=== PATIENT | male | born 1950 | race Caucasian/White ===

== ENCOUNTER 2019-05-27 14:34 | Inpatient (IN) | payer MEDICARE, SELFPAY ==
--- NOTE | ~2019-05-27 | US_ITS ---
EXAMINATION: US abdomen limited DATE: 05/27/2019 15:30 INDICATION: Right upper quadrant abdominal pain. TECHNIQUE: Multiple grayscale and Doppler ultrasound images of the abdomen were obtained. COMPARISON: CT abdomen and pelvis 12/14/2018 FINDINGS: The visualized portions of the head and body of the pancreas are normal. The liver is marie l without focal lesion. There is normal flow in main portal vein. The gallbladder is normal in size a nd contains a 4 mm polyp, likely not clinically significant. No gallstones or gallbladder wall thicke tali. There was no sonographic Calix sign. The common duct is normal and measures 6 mm. IMPRESSION: 1. No cholelithiasis. Reviewed, dictated and finalized at location A. IMPRESSION: 1. No cholelithiasis.
--- NOTE | ~2019-05-27 | CT_ITS ---
EXAMINATION: CT abdomen pelvis w con DATE: 05/27/2019 16:17 INDICATION: Pancreatitis. Abdominal pain. TECHNIQUE: Computed tomography (CT) of the abdomen and pelvis was performed with 100 mL Omnipaque 350 intravenous contrast. Automated exposure control and iterative reconstruction technique were employe d. The dose-length product was 657.96 mGy-cm. COMPARISON: CT abdomen and pelvis 12/14/2018 FINDINGS: The visualized portions of the lung bases demonstrate mild atelectasis. Calcified left lung nodules are consistent with old granulomatous disease. Again seen is an 8 mm nodule in lingula. No p leural effusion. The heart size is normal. No pericardial effusion. The liver and gallbladder are nor mal. Calcifications in the spleen are consistent with old granulomatous disease. There is fluid and f at stranding around the head and body of the pancreas, consistent with acute interstitial pancreatiti s. The adrenal glands and right kidney are normal. There is a 1.9 cm cyst in left kidney. The prostat e is moderately enlarged. There are no dilated loops of bowel. The appendix is normal. There are no p athologically enlarged lymph nodes. There is no free intraperitoneal fluid. There is mild thoracolumb ar spondylosis. IMPRESSION: 1. Acute interstitial pancreatitis. 2. Stable 8 mm pulmonary nodule, probably benign. Noncontrast chest CT is recommended in 6-12 months. Reviewed, dictated and finalized at location A. IMPRESSION: 1. Acute interstitial pancreatitis. 2. Stable 8 mm pulmonary nodule, probably benign. Noncontrast chest CT is recom mended in 6-12 months.
[2019-05-27 14:38] VITALS: BP 130/79; PULSE 86; RESP 16; TEMP 36.3; O2SAT 99
[2019-05-27 14:45] VITALS: BP 130/79; PULSE 86; RESP 16; TEMP 36.3; O2SAT 99
--- NOTE | 2019-05-27 14:46 | ED.ABDPAIN ---
HPI - Abdominal Pain General Chief Complaint: Abdominal Pain Stated Complaint: GALLBLADDER ATTACK Time Seen by Provider: 05/27/19 14:46 Source: patient Mode of arrival: ambulatory Limitations: no limitations History of Present Illness HPI narrative: A 69 y/o male presents to the ED with c/o intermittent nonradiating epigastric ABD pain that began 1.5 hours ago. 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 Pt is concerned that he is having a gall bladder attack. Pt notes that he was seen here in November 2018 for the same complaints and was told that he had a flare up of his pancreas and gallbladder. Pt's lipase level was high at the time. Pt had an endoscopy done by Dr. Diggs that came back normal. Pt was told that his pain may be due to sludge. Pt notes that he had a normal BM today. He denies a fever, N/V, CP, a cough, diarrhea, constipation, leg pain, a rash, alcohol use, and being on a blood thinner. Onset (ago): hour(s) (1.5) Pain Consistency: intermittent Location: epigastric Related Data Home Medications Medication Instructions Recorded Confirmed No Home Medications 05/27/19 05/27/19 Allergies Allergy/AdvReac Type Severity Reaction Status Date / Time No Known Allergies Allergy Verified 05/27/19 14:52 Review of Systems Review of Systems: Narrative: CONSTITUTIONAL: Denies fever, chills, or sweats. CARDIOVASCULAR: Denies chest pain, palpitations, or edema. RESPIRATORY: Denies cough or dyspnea. GASTROINTESTINAL: Reports: intermittent nonradiating epigastric ABD pain; Denies constipation, nausea, vomiting, or diarrhea. SKIN: Denies rash or itching. MUSCULOSKELETAL: Denies leg pain, back pain, joint pain, or myalgia. All systems reviewed & are unremarkable except as noted in HPI and below PMFSH Past Medical History Medical History (Updated 05/27/19 @ 16:01 by Rosana Quinones MD) Amputation finger left first digit Left wrist fracture Normal endoscopy SBO (small bowel obstruction) Toe fracture, left big toe Surgical History Surgical History H/O skin graft left leg to index finger Social History Social History (Updated 05/27/19 @ 15:01 by Aure M. Pashea) Smoking status: Former smoker Comments PCP: Dr. Gutierres Exam Narrative: Exam Narrative: GENERAL: Awake, alert, conversant HEAD: Normocephalic, atraumatic. NECK: Full range of motion CHEST: No respiratory distress, speaking in full sentences, no tachypnea HEART: Regular rate ABDOMEN: Mild distention, epigastric tenderness, right upper quadrant tenderness, nonrigid, no guarding EXTREMITIES: Normal range of motion. No edema. SKIN: Warm, dry, no rash. NEURO: No focal deficits. Alert and oriented x3. Course Course Emergency Course: Patient presented to the emergency department for evaluation of abdominal pain. Patient has a history of pancreatitis, today symptoms again are consistent with pancreatitis. Had acute onset of sudden epigastric pain approximately 2 hours prior to arrival. Laboratory results notable for significantly elevated lipase. CT scan confirms pancreatitis without evidence of hemorrhage or necrosis, no pseudocyst. Patient in the past has been followed by GI at this facility. We will admit patient to hospitalist service, and will keep him n.p.o. on IV fluids and pain medication. Patient was updated, understanding of the plan. Consultations Consultation #1: Discussed case with CHELA Franco and accepted admission. Date: 05/27/19 Time: 16:38 Vital Signs Vital signs: Vital Signs Temperature 36.3 C L 05/27/19 14:38 Pulse Rate 86 05/27/19 14:38 Respiratory Rate 16 05/27/19 14:38 Blood Pressure 130/79 05/27/19 14:38 Pulse Oximetry 99 05/27/19 14:38 Temperature 36.3 C L 05/27/19 14:45 Pulse Rate 63 05/27/19 16:32 Respiratory Rate 16 05/27/19 16:32 Blood Pressure 117/66 05/27/19 16:32 Pulse Oximetry 99 05/27/19 16:32
[2019-05-27 14:52] LABS: Basophils Percent Auto 0.4 % (0.2-1.2); Eosinophils Absolute Auto 0.1 K/mm3 (0-0.3); Eosinophils Percent Auto 0.7 % (0-4.4); Hematocrit 39.8 % (42.0-52.0); Hemoglobin 13.7 g/dL (14.0-18.0); Immature Granulocyte Absolute 0.03 K/mm3 (0.00-0.031); Immature Granulocyte Percent A 0.4 % (0-0.5); Lymphocytes Absolute Auto 0.98 K/mm3 (0.9-3.2); Mean Corpuscular HGB Conc 34.4 g/dl (32-36); Mean Corpuscular Hemoglobin 31.1 pg (26-34); Mean Corpuscular Volume 90.5 fl (80-100); Mean Platelet Volume 9.9 fl (7.4-10.4); Monocytes Absolute Auto 0.5 K/mm3 (0.1-0.6); Monocytes Percent Auto 5.5 % (2.6-8.5); Neutrophils Absolute Auto 6.6 K/mm3 (1.3-6.7); Platelet Count Result 209 k/mm3 (150-375); Red Cell Distribution Width 12.9 % (11.5-14.5); White Blood Count 8.1 K/mm3 (4.5-10.0)
[2019-05-27] MEDS: MORPHINE SULFATE 4 MG/ML INJ IV PUSH ×2 (15:01→20:49)
[2019-05-27] MEDS: ONDANSETRON INJ 4 MG/2 ML VIAL IV PUSH (15:01)
--- NOTE | 2019-05-27 15:06 | PC.NURSE ---
Patient to ultrasound, fluids to be provided when he returns.
[2019-05-27 15:07] LABS: Alanine Aminotransferase 16 U/L (4-50); Albumin Level 4.5 g/dL (3.5-5.1); Alkaline Phosphatase 52 U/L (38-126); Aspartate Amino Transferase 26 U/L (17-59); Bilirubin,Total 2.1 mg/dL (0.2-1.3); Blood Urea Nitrogen 20 mg/dL (9-20); Calcium 9.4 mg/dL (8.4-10.2); Carbon Dioxide 25 mmol/L (22-30); Chloride 106 mmol/L (98-107); Estimated CRCL calculation 61 ml/min; Estimated Glomerular Filt Rate > 60; Glucose 147 mg/dL (75-110); Potassium 4.1 mmol/L (3.4-5.0); Sodium 138 mmol/L (137-145)
[2019-05-27 15:24] LABS: Add Urine Microscopic? YES; Appearance Urine Clear (Clear); Bilirubin Urine Negative (Negative); Blood Urine Negative (Negative); Color Urine Yellow (Yellow); Glucose Urine UA Negative (Negative); Hyaline Casts Urine 20-29 /lpf; Ketones Urine Trace mg/dL (Negative); Leukocyte Esterase Ur Trace LEU/UL (Negative); Mucus Urine Few /lpf; Nitrate Urine Negative (Negative); Protein Urine Negative (Negative); Specific Grav Ur 1.019 (1.001-1.035); Squamous Epithelial Cell Urine Rare /hpf (Few)
[2019-05-27 15:52] LABS: Lipase 14626 U/L (23-300)
[2019-05-27] MEDS: SODIUM CHLORIDE 0.9% IV 1,000 ML 999 ML IV CONT (16:28)
[2019-05-27 16:32] VITALS: BP 117/66; PULSE 63; RESP 16; O2SAT 99
[2019-05-27] MEDS: LACTATED RINGERS 1,000 ML 125 ML IV CONT (17:56)
[2019-05-27 18:01] VITALS: BP 140/78; PULSE 53; RESP 16; TEMP 37.1; O2SAT 100
--- NOTE | 2019-05-27 18:24 | PC.NURSE ---
This patient, Jeramy Blood, was admitted to Medical Room 252-01. Patient/family oriented to hospital policies and general routines including ID bracelet, bed and alarms, visiting hours, pain management, procedures, bathroom and other care routines, personal items, smoking policy, room service/diet, and visiting hours. Valuables list has been completed. Information on how to activate the Rapid Response Team has been discussed. Patient/Family are encouraged to report perceived risks to care and to ask questions if they do not understand what they are told or what they should do.
[2019-05-27 18:26] VITALS: BMI 27.1
[2019-05-27 18:42] VITALS: BP 145/94; PULSE 64; RESP 18; TEMP 36.3; O2SAT 95
[2019-05-27 22:00] VITALS: BP 108/87; PULSE 55; RESP 18; TEMP 36.5; O2SAT 98
--- NOTE | 2019-05-27 23:19 | PM.IMHP ---
H&P: HPI History of Present Illness Chief complaint: Pancreatitis Narrative: Jeramy Blood is a 69 year old male who has a history of having chronic pancreatitis. The patient's last admission was November of 2018. The patient does he had GI specialist Dr. Snow. Dr. Snow sent the patient to another specialist who did an EGD getting to the patient and found nothing wrong. He had some sludge but was not going for surgery as of yet. Aseptic the patient had been initially admitted to [facility] before he was admitted to here. It was reported that his MRCP was unremarkable. Denies any alcohol abuse. No family history of any pancreatitis. 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 He stated that the morphine does help. He said that he has been eating more bland diet and he has been eating a low-fat diet. The patient's lipase was noted to be 14,626. His PSA is 4.4. I am not sure if he follows with the urologist. The patient did have morphine and that seemed to relieve his discomfort. The CT did confirm pancreatitis. He was started on IV fluids and pain medication. Review of Systems Review of Systems: Narrative: Severe left epigastric discomfort. No nausea vomiting or diarrhea that started today. It started all of a sudden. He did not try anything to relieve the discomfort. All systems reviewed & are unremarkable except as noted in HPI and below Constitutional: Constitutional: Reports as per HPI and Reports no additional constitutional complaints Eyes: Eyes: Reports as per HPI and Reports no additional eye complaints ENT: Reports system reviewed and no additional complaints, except as documented and Reports Normal hearing present Cardiovascular: Cardiovascular: Reports no additional cardiovascular complaints Respiratory: Respiratory: Reports no additional respiratory complaints and Reports no additional respiratory complaints Gastrointestinal: Gastrointestinal: Reports as per HPI and Reports no additional gastrointestinal complaints Musculoskeletal: Musculoskeletal: Reports no additional musculoskeletal complaints Integumentary/Breasts: Skin/Breast: Reports system reviewed and no additional complaints, except as docu and Reports as per HPI Neurologic: Reports system reviewed and no additional complaints, except as documented, Reports as per HPI and Reports Normal hearing present Psychiatric: Psychiatric: Reports no additional psychiatric complaints and Reports as per HPI Endocrine: Endocrine: Reports no additional endocrine complaints Hematologic/Lymphatic: Hematologic/Lymphatic: Reports no additional hematologic/lymphatic complaints Allergic/Immunologic: Allergic/Immunologic: Reports no additional allergic/immunologic complaints PMFSH Past Medical History Medical History (Updated 05/27/19 @ 23:28 by Joan Stephenson NP) Amputation finger left first digit Gallbladder sludge Left wrist fracture Normal endoscopy SBO (small bowel obstruction) Toe fracture, left big toe Surgical History Surgical History H/O skin graft left leg to index finger Family History Family History (Updated 05/27/19 @ 23:26 by Joan Stephenson NP) Father Malignant neoplasm of prostate Mother Lung cancer Stomach cancer Sibling History of female genital cancer Social History Social History (Updated 05/27/19 @ 23:27 by Joan Stephenson NP) Social History: The patient is and lives with his . 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 Patient desires to be a full code. He smoked 3 packs of cigarettes a day for 3 years and quit 1977. He drinks 2 oz of wine about 2 times a week. No drug use. Smoking st
[2019-05-28] MEDS: LACTATED RINGERS 1,000 ML 125 ML IV CONT (01:44)
[2019-05-28 05:41] LABS: Basophils Percent Auto 0.5 % (0.2-1.2); Eosinophils Absolute Auto 0.2 K/mm3 (0-0.3); Eosinophils Percent Auto 2.4 % (0-4.4); Hematocrit 36.1 % (42.0-52.0); Hemoglobin 12.4 g/dL (14.0-18.0); Immature Granulocyte Absolute 0.01 K/mm3 (0.00-0.031); Immature Granulocyte Percent A 0.2 % (0-0.5); Lymphocytes Absolute Auto 1.33 K/mm3 (0.9-3.2); Lymphocytes Percent Auto 20.9 % (18.3-44.2); Mean Corpuscular HGB Conc 34.3 g/dl (32-36); Mean Corpuscular Hemoglobin 31.2 pg (26-34); Mean Corpuscular Volume 90.7 fl (80-100); Mean Platelet Volume 9.7 fl (7.4-10.4); Monocytes Absolute Auto 0.4 K/mm3 (0.1-0.6); Monocytes Percent Auto 6.8 % (2.6-8.5); Neutrophils Absolute Auto 4.4 K/mm3 (1.3-6.7); Neutrophils Percent Auto 69.2 % (45.5-73.1); Platelet Count Result 173 k/mm3 (150-375); Red Blood Count 3.98 M/mm3 (4.6-6.20); Red Cell Distribution Width 13.1 % (11.5-14.5); White Blood Count 6.4 K/mm3 (4.5-10.0)
[2019-05-28 05:53] LABS: Alanine Aminotransferase 15 U/L (4-50); Albumin Level 3.6 g/dL (3.5-5.1); Alkaline Phosphatase 43 U/L (38-126); Aspartate Amino Transferase 22 U/L (17-59); Bilirubin,Total 2.2 mg/dL (0.2-1.3); Blood Urea Nitrogen 18 mg/dL (9-20); Calcium 8.7 mg/dL (8.4-10.2); Carbon Dioxide 26 mmol/L (22-30); Chloride 106 mmol/L (98-107); Estimated CRCL calculation 76 ml/min; Estimated Glomerular Filt Rate > 60; Glucose 86 mg/dL (75-110); Lipase 1042 U/L (23-300); Potassium 3.7 mmol/L (3.4-5.0); Sodium 140 mmol/L (137-145)
[2019-05-28 06:00] VITALS: BP 130/75; PULSE 63; RESP 16; TEMP 36.7; O2SAT 98
[2019-05-28] MEDS: LACTATED RINGERS 1,000 ML 100 ML IV CONT ×2 (10:15→19:44)
--- NOTE | 2019-05-28 11:51 | PM.IMPN ---
Progress Note: A&P Assessment and Plan (1) Acute pancreatitis: Qualifiers: Acute pancreatitis complication: unspecified Pancreatitis type: other Qualified Code(s): K85.80 - Other acute pancreatitis without necrosis or infection Code(s): K85.90 - Acute pancreatitis without necrosis or infection, unspecified Status: Acute Assessment and Plan: Patient with known chronic pancreatitis presents with acute onset of epigastric pain. Lipase 14,626 down to 1,[address] abdomen/pelvis shows acute interstitial pancreatitis. Right upper quadrant ultrasound shows no cholelithiasis or evidence of acute cholecystitis. Pain and lipase improved, advance to clear liquid diet today. Recheck lipase in AM. Had EUS Dec 2018 which revealed changes consistent with chronic pancreatitis, multiple cystic lesions in the head of the pancreas. EUS was performed at [facility] in [place], [place] by Dr Miranda, who he will follow up with in a few months. He is hopeful for outpatient follow up with general surgery eventually for cholecystectomy which is reasonable, as he has no evidence of cholecystitis at this time. He is interested in following with his specialist in [place] for this, could consider repeat HIDA as an outpatient at that time. (2) Pulmonary nodule: Code(s): R91.1 - Solitary pulmonary nodule Status: Acute Assessment and Plan: 8 mm pulmonary nodule, probably benign noted on CT chest. This has been seen on previous imaging. Recommend noncontrast chest CT in 6-12 months. Subjective Date/time seen: 05/28/19 11:45 Interval history: Mr. Blood is a 69yo M admitted with pancreatitis. He notes his upper abdominal pain is improved from yesterday, now 3/10 aching pain. He denies nausea or vomiting. Reports he has had nothing to eat since Tuesday and he is interested in trying to eat today. He denies any chest pain, shortness of breath, or calf tenderness. Review of Systems Review of Systems: Narrative: Twelve systems were reviewed with pertinent positives and negatives as per HPI. Exam Narrative: Exam Narrative: General: Male resting supine in bed in no acute distress. HEENT: Normocephalic, EOMI, oral mucosa tacky. Cardiovascular: Rate and rhythm are regular. Respiratory: Lungs clear to auscultation all johns. Respirations even and nonlabored. Abdomen: Soft, non-distended, bowel sounds hypoactive, mild epigastric tenderness to palpation without guarding. Extremities: Peripheral pulses intact. No edema or erythema. Neuro: No focal neurological deficits. Speech is clear. Objective Data Vital Signs Vital Signs: Last Vital Signs Temp 98.1 F 05/28/19 06:00 Pulse 63 05/28/19 06:00 Resp 16 05/28/19 06:00 BP 130/75 05/28/19 06:00 Pulse Ox 98 05/28/19 06:00 Intake/Output Intake/Output: Intake & Output 05/25/19 05/26/19 05/27/19 05/28/19 23:59 23:59 23:59 23:59 Intake Total 1000 2000 Output Total 600 Balance 1000 1400 Meds/Results Medications: Active Medications Generic Name Dose Route Start Last Admin Trade Name Freq PRN Reason Stop Dose Admin Lactated Ringer's 1,000 mls @ 100 mls/hr 05/27/19 16:40 05/28/19 10:15 Lr - Lactated Ringers Iv IV CONT 100 mls/hr .Q10H DOMINGUEZ Administration Morphine Sulfate 2 mg 05/28/19 07:11 Morphine Sulfate Inj IV PUSH Q4H PRN Pain Rated 7-10 Ondansetron HCl 4 mg 05/27/19 16:39 Zofran Inj IV PUSH Q4H PRN Nausea Radiology Results: ITS Impressions Abdomen Ultrasound 05/27/19 15:32 IMPRESSION: 1. No cholelithiasis. Abdomen/Pelvis CT 05/27/19 16:20 IMPRESSION: 1. Acute interstitial pancreatitis. 2. Stable 8 mm pulmonary nodule, probably benign. Noncontrast chest CT is recommended in 6-12 months. Labs Labs: Laboratory Tests 05/28/19 05:27 05/28/19 05:27 Quality VTE Proph
[2019-05-28 14:00] VITALS: BP 139/68; PULSE 60; RESP 18; TEMP 36.8; O2SAT 99
[2019-05-28 21:47] VITALS: BP 119/71; PULSE 53; RESP 16; TEMP 36.3; O2SAT 98
[2019-05-29] MEDS: LACTATED RINGERS 1,000 ML 100 ML IV CONT (05:34)
[2019-05-29 05:37] LABS: Bilirubin Indirect 2.4 mg/dL (0-1.1); Bilirubin,Total 2.3 mg/dL (0.2-1.3); Lipase 267 U/L (23-300)
[2019-05-29 06:13] VITALS: BP 132/64; PULSE 58; RESP 16; TEMP 35.9; O2SAT 98
--- NOTE | 2019-05-29 14:42 | PM.DS ---
DS: Diagnosis Admitting Diagnosis Admitting Diagnosis: Other acute pancreatitis without necrosis or infection Discharge Diagnosis (1) Acute pancreatitis: Qualifiers: Acute pancreatitis complication: unspecified Pancreatitis type: other Qualified Code(s): K85.80 - Other acute pancreatitis without necrosis or infection Code(s): K85.90 - Acute pancreatitis without necrosis or infection, unspecified Status: Acute (2) Pulmonary nodule: Code(s): R91.1 - Solitary pulmonary nodule Status: Acute DS: Summary Hospital Course Reason for hospitalization: Acute pancreatitis Hospital Course: Patient is a 69-year-old male with chronic gallbladder and pancreatic disease who presented emergency room 05/26 with abdominal pain. Temperature 36.3?, pulse 86, respiratory rate 16, blood pressure 130/79, pulse ox 99 on room air. White blood cell count 8.1. Lipase 14,626. Abdominal ultrasound showed no cholelithiasis. CT of the abdomen pelvis showed acute interstitial pancreatitis. It also showed incidental 8 mm pulmonary nodule probably benign but was recommended to be reimaged in 6-12 months. Patient was admitted to the hospitalist service and given IV fluids. The patient recovered well and did not have any complications. He was able to slowly increase his diet to a regular low-fat diet. The patient states he has a history of gallbladder and pancreatic disease and sees a specialist up in [facility]. He requests this be done up there outpatient once the current pandemic settles down. The patient had absolutely no pain in the right upper quadrant and was tolerating a diet. I spoke to him about his pulmonary nodule and he is going to follow up with his primary care physician and get this re-scanned in 6-12 months. Overall, the patient was eager for discharge and was well. He was educated about the worrisome signs and symptoms come back to emergency room for and was discharged in stable condition. I called Dr. Vance's office 05/29 and spoke to office staff about the pt case and Dr. Vance is supposed to call me back so I can let him know about the nodule follow up. Time spent discussing smoking cessation with patient: more than 10 minutes Status at Discharge Functional status at discharge: independent ambulation Overall status at discharge: patient is back to baseline Time Spent with Patient Time attestation: Total time spent providing and/or coordinating discharge services:38 min Time spent: Greater than 30 minutes Exam Narrative: Exam Narrative: General: Well developed well nourished patient resting comfortably in NAD HEENT: normocephalic Neck: supple Neuro: Alert and oriented x4 CV:RRR Resp:CTA Abd: Soft, non distended. No pain to palpation. Positive bowel sounds Extremities: No swelling, erythema, or pain to palpation. DS: Data Data Completed and Pending Labs on day of discharge: Labs from last 24 hours 05/29/19 05:06 Total Bilirubin 2.3 H Direct Bilirubin 0.0 Indirect Bilirubin 2.4 H Lipase 267 Discharge Plan Discharge Attending physician on discharge: Rod Boothe Consulting providers: Michael Fitzgerald ; Jona Stephenson ; Calista Swan ; Jacqueline Grande ; Sushant Camilo V. Discharging Clinician: Jacqueline Grande Patient Disposition: Home, Self-Care Activity: as tolerated Diet: low fat Discharge Instructions: -Follow up with your doctor in [place] about this stay. -Follow up with your primary care doctor in 1-2 weeks about this stay. As discussed, you will need another CT of your lungs in 6-12 months. Your primary will help facilitate this. -Advance your diet as tolerated -Worrisome signs and symptoms to come back to the ER for: fevers 100.3, chest pain, shortness of breath, worsening abdominal pain, progressive significant weakness, or any other worrisome symptoms Patient Instructions: Antibiotic Form, Pancreatitis (DC) Stand Alone F
== END 2019-05-29 15:37 | disposition home or self-care (01) | DRG 440 ==
LOC: ANHED 17:34 → ANH2MED 17:54
PROVIDERS: Nurse Practitioner; Physician Assistant; Admitting Provider Family Medicine; Emergency Provider Emergency Medicine; Visit Provider Family Medicine
DX: K85.80 Other acute pancreatitis without necrosis or infection (principal); K86.1 Other chronic pancreatitis; R91.1 Solitary pulmonary nodule; Z87.891 Personal history of nicotine dependence
CPT/HCPCS: 36415; 74177; 76705; 80053; 81001; 82247; 82248; 83690; 83735; 85025; 87086; 96361; 96374; 96375; 96376; 99285; G0378; J2270; J2405; J7030; J7120; Q9967

== ENCOUNTER 2019-06-25 09:41 | Outpatient (CLI) | payer MEDICARE, SELFPAY ==
[2019-06-25 12:21] LABS: Alanine Aminotransferase 23 U/L (16-63); Albumin Level 3.9 g/dL (3.4-5.0); Alkaline Phosphatase 58 U/L (46-116); Aspartate Amino Transferase 20 U/L (15-37); Bilirubin Direct 0.2 mg/dL (0-0.2); Bilirubin,Total 1.1 mg/dL (0.00-1.00); Total Protein 6.5 g/dL (6.4-8.2)
== END 2019-06-25 09:42 | disposition home or self-care (01) ==
PROVIDERS: PCP Family Medicine
DX: K85.90 Acute pancreatitis without necrosis or infection, unspecified (principal)
CPT/HCPCS: 36415; 80076

== ENCOUNTER 2019-07-07 08:29 | Outpatient (CLI) | payer MEDICARE, SELFPAY ==
--- NOTE | ~2019-07-07 | MR_ITS ---
EXAMINATION: MR abdomen w con DATE: 07/07/2019 10:41 INDICATION: Pancreatic cyst. Pancreatitis. TECHNIQUE: Magnetic resonance imaging (MRI) of the abdomen was performed with 20 mL MultiHance intrav enous contrast. Sequences included axial and coronal LAVA-flex. COMPARISON: CT abdomen and pelvis 05/27/2019, 12/14/2018 FINDINGS: The liver, gallbladder, and spleen are normal. The pancreatic duct is mildly dilated. The adrenal gla nds and kidneys are normal. There are no dilated loops of bowel. There are no pathologically enlarged lymph nodes. IMPRESSION: 1. Mildly dilated pancreatic duct, consistent with chronic pancreatitis. No abnormal pancreatic mass. Reviewed, dictated and finalized at location A. IMPRESSION: 1. Mildly dilated pancreatic duct, consistent with chronic pancreatitis. No abn ormal pancreatic mass.
[2019-07-07 08:57] LABS: Estimated Glomerular Filt Rate > 60
== END 2019-07-07 08:30 | disposition home or self-care (01) ==
LOC: CHSIMG 08:32
PROVIDERS: PCP Family Medicine
DX: K86.2 Cyst of pancreas (principal); K85.90 Acute pancreatitis without necrosis or infection, unspecified
CPT/HCPCS: 74182; A9577

== ENCOUNTER 2019-07-18 08:12 | Outpatient (CLI) | payer MEDICARE, SELFPAY ==
[2019-07-18 10:10] LABS: Alanine Aminotransferase 23 U/L (16-63); Alkaline Phosphatase 57 U/L (46-116); Anion Gap 16.2 mmol/L (7-16); Aspartate Amino Transferase 20 U/L (15-37); Bilirubin,Total 1.2 mg/dL (0.00-1.00); Blood Urea Nitrogen 15 mg/dL (7-18); Calcium 9.1 mg/dL (8.5-10.1); Carbon Dioxide 26 mmol/L (21-32); Chloride 103 mmol/L (98-108); Estimated Glomerular Filt Rate > 60; Glucose 137 mg/dL (70-99); Osmolality Calculated 294 mOsm/kg (285-295); Potassium 4.2 mmol/L (3.5-5.1); Prostate Specific Antigen 4.2 ng/mL (< OR = 4.0); Sodium 141 mmol/L (136-145); Total Protein 6.8 g/dL (6.4-8.2)
== END 2019-07-18 08:13 | disposition home or self-care (01) ==
LOC: CHSLAB 08:14
PROVIDERS: PCP Family Medicine; Visit Provider Urology
DX: R97.20 Elevated prostate specific antigen [PSA] (principal)
CPT/HCPCS: 36415; 80053; 84153

== ENCOUNTER 2020-07-08 03:38 | Inpatient (IN) | payer MEDICARE, SELFPAY ==
--- NOTE | ~2020-07-08 | US_ITS ---
EXAMINATION: US abdomen limited DATE: 07/09/2020 08:45 INDICATION: Pancreatitis. TECHNIQUE: Multiple grayscale and Doppler ultrasound images of the abdomen were obtained. COMPARISON: CT abdomen and pelvis 07/08/2020 FINDINGS: The pancreas is obscured by bowel gas. The liver is normal without focal lesion. No liver s urface nodularity. There is normal flow in main portal vein. The gallbladder is normal in size. No ga llstones or gallbladder wall thickening. There was no sonographic Calix sign. The common duct is nor mal and measures 5 mm. IMPRESSION: 1. Pancreas obscured by bowel gas. Otherwise normal right upper quadrant ultrasound. Reviewed, dictated and finalized at location B. IMPRESSION: 1. Pancreas obscured by bowel gas. Otherwise normal right upper quadrant ultras ound.
--- NOTE | ~2020-07-08 | CT_ITS ---
EXAMINATION: CT abdomen pelvis w con DATE: 07/08/2020 05:03 INDICATION: Epigastric abdominal pain. TECHNIQUE: Computed tomography (CT) of the abdomen and pelvis was performed with 100 mL Omnipaque 350 intravenous contrast. Automated exposure control and iterative reconstruction technique were employe d. The dose-length product was 671.95 mGy-cm. COMPARISON: CT abdomen and pelvis 05/27/2019, 12/14/2018 FINDINGS: The visualized portions of the lung bases demonstrate mild atelectasis. There is an 8 mm no dule in the lingula without change from 12/14/2018, likely benign. A calcified left lung nodule is co nsistent with old granulomatous disease. No pleural effusion. The heart size is normal. No pericardia l effusion. There is a 7 mm cyst in the liver. The gallbladder is normal. Calcifications in the splee n are consistent with old granulomatous disease. There is fat stranding and free fluid around the hea d and body of the pancreas. The pancreatic duct is chronically dilated to 5 mm in the tail segment. T hese findings are consistent with acute interstitial pancreatitis superimposed on chronic pancreatiti s. The adrenal glands are normal. There are cysts in the kidneys measuring up to 2.3 cm on the left. The prostate is mildly enlarged. There is diverticulosis of the colon without evidence of diverticuli tis. There are no dilated loops of bowel. The appendix is normal. There are no pathologically enlarge d lymph nodes. There is a small left inguinal hernia containing fat. There is mild thoracolumbar spon dylosis. IMPRESSION: 1. Acute interstitial pancreatitis superimposed on chronic pancreatitis. Reviewed, dictated and finalized at location B.
[2020-07-08 03:43] VITALS: BP 142/79; PULSE 53; RESP 16; TEMP 36.9; O2SAT 100
--- NOTE | 2020-07-08 03:48 | ED.ABDPAIN ---
HPI - Abdominal Pain General Chief Complaint: Abdominal Pain Stated Complaint: Abd Pain Time Seen by Provider: 07/08/20 03:48 Source: patient Mode of arrival: ambulatory Limitations: no limitations History of Present Illness HPI narrative: Patient is a 70-year-old male with a history of chronic interstitial pancreatitis who presents for evaluation of epigastric abdominal pain that feels very consistent to his previous bouts of pancreatitis. Patient last episode was 2 years ago. States that there was no known cause at that time. This morning, patient awakened at 2 AM with severe epigastric abdominal pain which is sharp and crampy in nature. No radiation to the chest. No concurrent shortness of breath, back pain, jaw pain, neck pain or shoulder pain. No diaphoresis. He has been nauseated and vomited. He denies lower abdominal pain, dysuria or hematuria. Patient states today he had hot tea, piece of olivares pie, fried potatoes and onions as well as cereal. States this is not out of the ordinary meal nur for him. Also endorsing mild abdominal bloating as well. Pt does not have a GI physician at this time. Related Data Home Medications Medication Instructions Recorded Confirmed No Home Medications 05/27/19 05/27/19 Allergies Allergy/AdvReac Type Severity Reaction Status Date / Time No Known Allergies Allergy Verified 12/03/19 12:39 Review of Systems Review of Systems: Narrative: CONSTITUTIONAL: Denies fever, chills, or sweats. EYES: Denies visual changes, redness, or discharge. ENT: Denies rhinorrhea, congestion, sore throat, or otalgia. CARDIOVASCULAR: Denies chest pain, palpitations, or edema. RESPIRATORY: Denies cough or dyspnea. GASTROINTESTINAL: Reports abdominal pain, nausea, denies diarrhea GENITOURINARY: Denies dysuria or hematuria. SKIN: Denies rash or itching. MUSCULOSKELETAL: Denies back pain, joint pain, or myalgia. NEUROLOGIC: Denies headache, numbness, or weakness. [facility] Past Medical History Medical History Amputation finger left first digit Gallbladder sludge Left wrist fracture Normal endoscopy SBO (small bowel obstruction) Seborrheic keratoses Toe fracture, left big toe Surgical History Surgical History H/O skin graft left leg to index finger Family History Family History Father Malignant neoplasm of prostate Mother Lung cancer Stomach cancer Sibling History of female genital cancer Social History Social History Social History: The patient is and lives with his . 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 Patient desires to be a full code. He smoked 3 packs of cigarettes a day for 3 years and quit 1977. He drinks 2 oz of wine about 2 times a week. No drug use. Smoking status: Former smoker Additional smoking assessment comments: Quite 40 years ago Alcohol intake: former Substance use: never Gender identity (if verbalized by the patient): Male Spiritual care concerns: No Agree to blood products: Yes Exam Narrative: Exam Narrative: GENERAL: Awake, alert, conversant HEAD: Normocephalic, atraumatic. EYES: PERRLA and EOMI. ENT: Nares clear, no rhinorrhea or epistaxis. Mucous membranes moist. NECK: Supple. CHEST: No respiratory distress, breathing even and non labored HEART: Regular rate, sinus rhythm ABDOMEN: Mild distention, tender in the epigastrium and right upper quadrant with guarding, no rebound, nonrigid EXTREMITIES: Normal range of motion. No edema. SKIN: Warm, dry, no rash. NEURO:No focal deficits. Alert and oriented x3 Course Vital Signs Vit
[2020-07-08] MEDS: ONDANSETRON INJ 4 MG/2 ML VIAL IV PUSH (04:11)
[2020-07-08] MEDS: SODIUM CHLORIDE 0.9% IV 1,000 ML 999 ML IV CONT (04:11)
[2020-07-08] MEDS: MORPHINE SULFATE (*CRX) 4 MG/ML INJ IV PUSH ×2 (04:12→10:34)
[2020-07-08 04:19] VITALS: BP 117/73; PULSE 54; RESP 18; O2SAT 100
[2020-07-08 04:25] LABS: Basophils Percent Auto 0.5 % (0.2-1.2); Eosinophils Absolute Auto 0.2 K/mm3 (0-0.3); Eosinophils Percent Auto 1.8 % (0-4.4); Hematocrit 41.2 % (42.0-52.0); Hemoglobin 14.6 g/dL (14.0-18.0); Immature Granulocyte Absolute 0.05 K/mm3 (0.00-0.031); Immature Granulocyte Percent A 0.6 % (0-0.5); Lymphocytes Absolute Auto 1.45 K/mm3 (0.9-3.2); Lymphocytes Percent Auto 16.5 % (18.3-44.2); Mean Corpuscular HGB Conc 35.4 g/dl (32-36); Mean Corpuscular Hemoglobin 31.6 pg (26-34); Mean Corpuscular Volume 89.2 fl (80-100); Mean Platelet Volume 11.7 fl (7.4-10.4); Monocytes Absolute Auto 0.7 K/mm3 (0.1-0.6); Monocytes Percent Auto 7.4 % (2.6-8.5); Neutrophils Absolute Auto 6.4 K/mm3 (1.3-6.7); Neutrophils Percent Auto 73.2 % (45.5-73.1); Platelet Count Result 156 k/mm3 (150-375); Red Blood Count 4.62 M/mm3 (4.6-6.20); Red Cell Distribution Width 12.7 % (11.5-14.5); White Blood Count 8.8 K/mm3 (4.5-10.0)
[2020-07-08 04:47] LABS: Alanine Aminotransferase 15 U/L (4-50); Albumin Level 4.6 g/dL (3.5-5.1); Alkaline Phosphatase 47 U/L (38-126); Anion Gap 5 mmol/L (8-16); Aspartate Amino Transferase 27 U/L (17-59); Bilirubin,Total 1.2 mg/dL (0.2-1.3); Blood Urea Nitrogen 16 mg/dL (9-20); Calcium 10.5 mg/dL (8.4-10.2); Carbon Dioxide 36 mmol/L (22-30); Chloride 101 mmol/L (98-107); Estimated CRCL calculation 68 ml/min; Estimated Glomerular Filt Rate > 60; Glucose 132 mg/dL (75-110); Sodium 142 mmol/L (137-145)
--- NOTE | 2020-07-08 05:34 | ECG_ITS ---
Measurements Intervals [place] Rate: 51 P: 53 [place]: 200 QRS: 1 QRSD: 106 T: 5 QT: 400 QTc: 369 Interpretive Statements SINUS BRADYCARDIA BORDERLINE ECG Electronically Signed On 07-08-2020 17:47:08 CDT by Shayan Ramirez D.O.
[2020-07-08] MEDS: SODIUM CHLORIDE 0.9% IV 1,000 ML 150 ML IV CONT (05:48)
[2020-07-08 05:56] VITALS: BP 127/81; PULSE 59; RESP 18; O2SAT 97
--- NOTE | 2020-07-08 07:05 | ADMGEN ---
This patient, Jeramy Blood, was admitted to Medical Room 344-01. Patient/family oriented to hospital policies and general routines including ID bracelet, bed and alarms, visiting hours, pain management, procedures, bathroom and other care routines, personal items, smoking policy, room service/diet, and visiting hours. Information on how to activate the Rapid Response Team has been discussed. Patient/Family are encouraged to report perceived risks to care and to ask questions if they do not understand what they are told or what they should do.
--- NOTE | 2020-07-08 10:35 | PM.IMHP ---
H&P: HPI History of Present Illness Date/Time: 07/08/20 10:35 Chief Complaint: Abd pain Narrative: Patient is a 70-year-old man with a history of chronic pancreatitis, to the emergency room with sudden epigastric abdominal pain. The patient woke up at 2:00 a.m. this morning on 07/08/2020 with epigastric abdominal soreness with intermittent sharp/stabbing pain. Denies any radiation of pain, fevers, chills, nausea or vomiting. Pain felt similar to his prior pancreatitis attacks in the past. He has associated abdominal bloating . He is passing gas, denies any diarrhea or constipation. He denies any chest pain, shortness of breath, cough, leg swelling, calf pain, urinary symptoms, lightheadedness, dizziness, syncopal episode, or any other symptoms at this time. Code status: Full code [id number]: Rajni Review of Systems Review of Systems: All systems reviewed & are unremarkable except as noted in HPI and below PMFSH Past Medical History Medical History Amputation finger left first digit Gallbladder sludge Left wrist fracture Normal endoscopy SBO (small bowel obstruction) Seborrheic keratoses Toe fracture, left big toe Surgical History Surgical History H/O skin graft left leg to index finger Family History Family History Father Malignant neoplasm of prostate Mother Lung cancer Stomach cancer Sibling History of female genital cancer Social History Social History (Updated 07/08/20 @ 11:37 by Sarai Clarke PA-C) Social History: The patient is and lives with his in [place], [place]. 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 His Rajni is a durable power attorney law clerk for healthcare. Patient desires to be a full code. He smoked 3 packs of cigarettes a day for 3 years and quit 1977. He denies drinking any alcohol. No drug use. Smoking status: Former smoker Additional smoking assessment comments: Quite 40 years ago Alcohol intake: former Substance use: never Living arrangements: with family Occupation/Education: retired Gender identity (if verbalized by the patient): Male Spiritual care concerns: No Agree to blood products: Yes Meds Home Medications and Allergies Home Medications Medication Instructions Recorded Confirmed Type No Home Medications 05/27/19 07/08/20 History Allergies Allergy/AdvReac Type Severity Reaction Status Date / Time No Known Allergies Allergy Verified 07/08/20 10:29 Vital Signs Vital Signs - 24 hr 07/08/20 03:43 07/08/20 04:19 07/08/20 05:56 Temperature 98.4 F Pulse Rate 53 L 54 L 59 L Respiratory Rate 16 18 18 Blood Pressure 142/79 H 117/73 127/81 Pulse Oximetry 100 100 97 Exam Narrative: Exam Narrative: General: 70-year-old man laying flat in bed talking to the nurse. Appears comfortable. In no acute distress. Skin: No jaundice or cyanosis. Good skin turgor. Neck: Full range of motion. Supple. Respiratory: Lungs are clear to auscultation bilaterally. No bony chest wall tenderness. Cardiovascular: The heart has a regular rate and rhythm without murmur. Lower extremities: No lower extremity edema. Distal pulses are easily palpated. No calf tenderness to palpation. Gastrointestinal: Slight abdominal distention, tenderness to light palpation to epigastric area. The abdomen is otherwise soft. Active bowel sounds. Psychiatric: Lucid and oriented. Memory intact. Neurologic: No focal deficits. Speech is clear. No facial drooping. H&P: Results Labs Labs: Short CBC 07/08/20 Range/Units 04:13 WBC 8.8 (4.5-10.0) K/mm3 Hgb 14.6 (14.0-18.0) g/dL Hct 41.2 L (42.0-52.0) % Plt Count 156 (150-375
[2020-07-08] MEDS: PANTOPRAZOLE SODIUM IV 40 MG VIAL IV PUSH ×2 (10:37→20:36)
[2020-07-08 10:41] VITALS: BMI 26.3
[2020-07-08] MEDS: ENOXAPARIN 40 MG/0.4 ML SYRINGE SUB-Q (13:10)
[2020-07-08] MEDS: SODIUM CHLORIDE 0.9% IV 1,000 ML 75 ML IV CONT (13:10)
--- NOTE | 2020-07-08 13:50 | WPDGICN ---
Assessment and Plan Assessment and plan (1) Acute on chronic pancreatitis: Code(s): K85.90 - Acute pancreatitis without necrosis or infection, unspecified; K86.1 - Other chronic pancreatitis Status: Acute Assessment and Plan: idiopathic, work up in the past did not show etiology he still has GB but no evidence of stones. Patient had endoscopic evaluation in the past and apparently was normal. he will get an appointment to see Dr Moreno in [facility] liquid diet for now, advance as tolerated (2) Epigastric pain: Code(s): R10.13 - Epigastric pain Status: Acute Assessment and Plan: from pancreatitis, continue medical therapy GI Consult Note Consult date/time: 07/08/20 13:50 HPI: Jeramy Blood is a 70 year old male who I met during previous hospitalization about 2 years ago when he was admitted for his second episode of pancreatitis, then he saw GI in [place] that performed EGD and ? EUS, patient was told that unremarkable. He came in again with epigastric pain, severe, sharp/stabbing pain and diagnosed again with pancreatitis (similar to previous presentation), had elevated lipase with normal liver enzymes. He had MRI abdomen 06/2019 that showed mildly dilated pancreatic duct, consistent with chronic pancreatitis, also denies alcohol use and TG level normal in the past. No abnormal pancreatic mass and this time CT Scan a/p reviewed c/w acute interstitial pancreatitis superimposed on chronic pancreatitis. This will be his fourth time with pancreatitis. He is having CL diet and already doing better. Review of Systems Constitutional: Constitutional: Denies headache(s) and Denies weakness Eyes: Eyes: Denies blurry vision ENT: Reports Normal hearing present, Denies headache(s) and Denies neck pain Cardiovascular: Cardiovascular: Denies chest pain and Denies dyspnea Respiratory: Respiratory: Denies dyspnea Gastrointestinal: Gastrointestinal: Reports no additional gastrointestinal complaints Genitourinary: Genitourinary: Denies dysuria Musculoskeletal: Musculoskeletal: Denies neck pain Integumentary/Breasts: Skin/Breast: Denies dry skin Neurologic: Reports Normal hearing present, Denies headache(s) and Denies weakness Psychiatric: Psychiatric: Denies anxiety Endocrine: Endocrine: Denies change in body appearance Hematologic/Lymphatic: Hematologic/Lymphatic: Denies easy bleeding Allergic/Immunologic: Allergic/Immunologic: Denies urticaria PMFSH Past Medical History Medical History (Updated 07/08/20 @ 14:07 by Kartik Diggs MD) Amputation finger left first digit Epigastric pain Gallbladder sludge Left wrist fracture Normal endoscopy SBO (small bowel obstruction) Seborrheic keratoses Toe fracture, left big toe Surgical History Surgical History H/O skin graft left leg to index finger Family History Family History Father Malignant neoplasm of prostate Mother Lung cancer Stomach cancer Sibling History of female genital cancer Social History Social History (Updated 07/08/20 @ 11:37 by Sarai Clarke PA-C) Social History: The patient is and lives with his in [place], [place]. 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 His Rajni is a durable power real estate attorney for healthcare. Patient desires to be a full code. He smoked 3 packs of cigarettes a day for 3 years and quit 1977. He denies drinking any alcohol. No drug use. Smoking status: Former smoker Additional smoking assessment comments: Quite 40 years ago Alcohol intake: former Substance use: never Living arrangements: with family Occupation/Education: retired Gender identity (if verbalized by the patient): Male Spiritual care concerns: No Agree
[2020-07-08 15:00] VITALS: BP 137/75; PULSE 52; RESP 16; TEMP 36.1; O2SAT 100
[2020-07-08 20:17] VITALS: BP 136/71; PULSE 52; RESP 16; TEMP 36.4; O2SAT 98
[2020-07-09] MEDS: SODIUM CHLORIDE 0.9% IV 1,000 ML 75 ML IV CONT (02:22)
[2020-07-09 06:09] LABS: Basophils Percent Auto 0.5 % (0.2-1.2); Eosinophils Absolute Auto 0.1 K/mm3 (0-0.3); Eosinophils Percent Auto 2.4 % (0-4.4); Hematocrit 35.5 % (42.0-52.0); Hemoglobin 12.3 g/dL (14.0-18.0); Immature Granulocyte Absolute 0.02 K/mm3 (0.00-0.031); Immature Granulocyte Percent A 0.3 % (0-0.5); Lymphocytes Absolute Auto 1.33 K/mm3 (0.9-3.2); Lymphocytes Percent Auto 22.7 % (18.3-44.2); Mean Corpuscular HGB Conc 34.6 g/dl (32-36); Mean Corpuscular Volume 89.4 fl (80-100); Mean Platelet Volume 10.4 fl (7.4-10.4); Monocytes Absolute Auto 0.4 K/mm3 (0.1-0.6); Monocytes Percent Auto 7.2 % (2.6-8.5); Neutrophils Absolute Auto 3.9 K/mm3 (1.3-6.7); Neutrophils Percent Auto 66.9 % (45.5-73.1); Platelet Count Result 162 k/mm3 (150-375); Red Blood Count 3.97 M/mm3 (4.6-6.20); Red Cell Distribution Width 12.8 % (11.5-14.5); White Blood Count 5.9 K/mm3 (4.5-10.0)
[2020-07-09 06:17] VITALS: BP 115/66; PULSE 54; RESP 18; TEMP 36.2; O2SAT 98
[2020-07-09 06:30] LABS: Alanine Aminotransferase 11 U/L (4-50); Albumin Level 3.6 g/dL (3.5-5.1); Alkaline Phosphatase 41 U/L (38-126); Anion Gap 2 mmol/L (8-16); Aspartate Amino Transferase 21 U/L (17-59); Bilirubin,Total 1.8 mg/dL (0.2-1.3); Blood Urea Nitrogen 12 mg/dL (9-20); Calcium 9.1 mg/dL (8.4-10.2); Carbon Dioxide 34 mmol/L (22-30); Chloride 103 mmol/L (98-107); Cholesterol 151 mg/dL (0-200); Estimated CRCL calculation 62 ml/min; Estimated Glomerular Filt Rate > 60; Glucose 106 mg/dL (75-110); HDL Direct 31 mg/dL; Potassium 4.4 mmol/L (3.4-5.0); Sodium 139 mmol/L (137-145); Triglycerides 129 mg/dL (<150)
[2020-07-09 06:35] LABS: LDL Cholesterol Direct 96 mg/dL
[2020-07-09 07:10] LABS: Lipase 2816 U/L (23-300)
[2020-07-09] MEDS: ENOXAPARIN 40 MG/0.4 ML SYRINGE SUB-Q (09:53)
[2020-07-09] MEDS: PANTOPRAZOLE SODIUM IV 40 MG VIAL IV PUSH (09:53)
--- NOTE | 2020-07-09 14:55 | PM.DS ---
DS: Admitting Diagnosis Admitting Diagnosis Admitting Diagnosis: Abd pain DS: Discharge Diagnosis Discharge Diagnosis (1) Acute on chronic pancreatitis: Code(s): K85.90 - Acute pancreatitis without necrosis or infection, unspecified; K86.1 - Other chronic pancreatitis Status: Acute Assessment and Plan: Patient is a 70-year-old man with a history of pancreatitis in the past presents with similar symptoms of epigastric pain. Labs show elevated lipase level at 30,000, with normal LFTs. CT abdomen pelvis shows Acute interstitial pancreatitis superimposed on chronic pancreatitis. Normal in appearance. The pancreatic duct is chronically dilated to 5 mm in the tail segment which is consistent with acute pancreatitis. Ultrasound showed unremarkable gallbladder. The patient was conservatively treated for pancreatitis, with slow advancement of his diet, IV fluid hydration and repeat labs. Lipase was trending down. Lipid panel Was normal. Patient was able to tolerate a low-fat diet for lunch without any pain or symptoms. He was seen by the GI specialist who evaluated him and recommended follow-up with him or another GI specialist in the future for further evaluation and monitoring of his chronic pancreatitis. Patient understands and agrees with the plan. All questions answered. (2) Pulmonary nodule: Code(s): R91.1 - Solitary pulmonary nodule Status: Acute Assessment and Plan: CT Abd/Pelvis from 05/27/19 shows Stable 8 mm pulmonary nodule, probably benign. CT Abd/Pelvis 07/08/20 showed there is an 8 mm nodule in the lingula without change from 12/14/2018, likely benign. Follow up with PCP for further evaluation and monitoring. DS: Summary Hospital Course Reason for hospitalization: See above Hospital Course: See above Status at Discharge Cognitive/behavioral status at discharge: Stable, improved. Time Spent with Patient Time attestation: Total time spent providing and/or coordinating discharge services: 41 Time spent: Greater than 30 minutes Exam Narrative: Exam Narrative: General: 70-year-old man laying flat in bed resting. Appears comfortable. In no acute distress. Skin: No jaundice or cyanosis. Good skin turgor. Neck: Full range of motion. Supple. Respiratory: Lungs are clear to auscultation bilaterally. No bony chest wall tenderness. Cardiovascular: The heart has a regular rate and rhythm without murmur. Lower extremities: No lower extremity edema. Distal pulses are easily palpated. No calf tenderness to palpation. Gastrointestinal: The abdomen is otherwise soft, nontender, nondistended. Active bowel sounds. Psychiatric: Lucid and oriented. Memory intact. Neurologic: No focal deficits. Speech is clear. No facial drooping. DS: Data Data Completed and Pending Labs on day of discharge: Labs from last 24 hours 07/09/20 07/09/20 05:40 05:40 WBC 5.9 RBC 3.97 L Hgb 12.3 L Hct 35.5 L MCV 89.4 MCH 31.0 MCHC 34.6 RDW 12.8 Plt Count 162 MPV 10.4 Immature Gran % (Auto) 0.3 Neut % (Auto) 66.9 Lymph % (Auto) 22.7 [place] % (Auto) 7.2 Eos % (Auto) 2.4 Baso % (Auto) 0.5 Lymph # (Auto) 1.33 [place] # (Auto) 0.4 Eos # (Auto) 0.1 Baso # (Auto) 0.0 Abs Immat Gran (auto) 0.02 Absolute Neuts (auto) 3.9 Absolute Nucleated RBC 0.0 Nucleated RBC % 0.0 Sodium 139 Potassium 4.4 Chloride 103 Carbon Dioxide 34 H Anion Gap 2 L BUN 12 Creatinine 1.10 Estim Creat Clear Calc 62 Estimated GFR > 60 Glucose 106 Calcium 9.1 Total Bilirubin 1.8 H AST 21 ALT 11 Alkaline Phosphatase 41 Total Protein 6.0 L Albumin 3.6 Triglycerides 129 Cholesterol 151 LDL Cholesterol Direct 96 HDL Direct 31 Lipase 2816 H Discharge Plan Discharge Attending physician on discharge: [facility]
--- NOTE | 2020-07-09 16:07 | WPDGIPROGNO ---
Progress Note: A&P Assessment and Plan (1) Acute on chronic pancreatitis: Code(s): K85.90 - Acute pancreatitis without necrosis or infection, unspecified; K86.1 - Other chronic pancreatitis Status: Acute Assessment and Plan: almost resolved, tolerating diet he will make an appointment to see Dr Moreno in [facility] low fat diet (2) Epigastric pain: Code(s): R10.13 - Epigastric pain Status: Acute Assessment and Plan: resolved Subjective Date/time seen: 07/09/20 16:07 Interval history: he is doing much better, tolerating diet and he is going home today Review of Systems Constitutional: Constitutional: Denies headache(s) and Denies weakness Eyes: Eyes: Denies blurry vision ENT: Reports Normal hearing present, Denies headache(s) and Denies neck pain Cardiovascular: Cardiovascular: Denies chest pain and Denies dyspnea Respiratory: Respiratory: Denies dyspnea Gastrointestinal: Gastrointestinal: Reports no additional gastrointestinal complaints Genitourinary: Genitourinary: Denies dysuria Musculoskeletal: Musculoskeletal: Denies neck pain Integumentary/Breasts: Skin/Breast: Denies dry skin Neurologic: Reports Normal hearing present, Denies headache(s) and Denies weakness Psychiatric: Psychiatric: Denies anxiety Endocrine: Endocrine: Denies change in body appearance Hematologic/Lymphatic: Hematologic/Lymphatic: Denies easy bleeding Allergic/Immunologic: Allergic/Immunologic: Denies urticaria Exam Const: General: comfortable and no acute distress HENMT: General nose exam: Normal nares present Eyes: General: appearance normal, both eyes and all related structures Neck: Neck: no JVD Resp: Auscultation: clear to auscultation bilaterally Cardio: Rate: regular rate Rhythm: regular rhythm GI: Inspection: non-distended GI Palp: Yes Soft to palpation Skin: General skin exam: normal color Neuro: General: gait normal Speech: normal speech Extrem: General: normal to inspection Psych: Mental Status: mental status grossly normal Objective Data Vital Signs Vital Signs: Vital Signs - 24 hr 07/08/20 20:17 07/09/20 06:17 Temperature 97.6 F 97.2 F L Pulse Rate 52 L 54 L Respiratory Rate 16 18 Blood Pressure 136/71 115/66 Pulse Oximetry 98 98 Intake/Output Intake/Output: Intake & Output 07/06/20 07/07/20 07/08/20 07/09/20 23:59 23:59 23:59 23:59 Intake Total 2800 2640 Output Total 500 Balance 2300 2640 Meds/Results Medications: Active Medications Generic Name Dose Route Start Last Admin Trade Name Freq PRN Reason Stop Dose Admin Enoxaparin Sodium 40 mg 07/08/20 11:35 07/09/20 09:53 Enoxaparin 40 Mg/0.4 Ml Syringe SUB-Q 40 mg DAILY DOMINGUEZ Administration Sodium Chloride 1,000 mls @ 75 mls/hr 07/08/20 13:00 07/09/20 02:22 Normal Saline Iv IV CONT 75 mls/hr .[id number] DOMINGUEZ Administration Morphine Sulfate 4 mg 07/08/20 06:03 07/08/20 10:34 Morphine Sulfate (*Crx) 4 Mg/Ml Inj IV PUSH 4 mg Q2H PRN Administration Pain Rated 7-10 Morphine Sulfate 2 mg 07/08/20 09:12 Morphine Sulfate (*Crx) 2 Mg/Ml Inj IV PUSH Q2HR PRN Pain Rated 4-6 Ondansetron HCl 4 mg 07/08/20 06:03 Ondansetron Inj 4 Mg/2 Ml Vial IV PUSH Q4H PRN Nausea Pantoprazole Sodium 40 mg 07/08/20 09:00 07/09/20 09:53 Pantoprazole Sodium Iv 40 Mg Vial IV PUSH 40 mg Q12HR DOMINGUEZ Administration Radiology Results: ITS Impressions Abdomen/Pelvis CT 07/08/20 08:15 IMPRESSION: 1. Acute interstitial pancreatitis superimposed on chronic pancreatitis. Abdomen Ultrasound 07/09/20 08:48 IMPRESSION: 1. Pancreas obscured by bowel gas. Otherwise normal right upper quadrant ultrasound. Labs Labs: Laboratory Results - last 24 hr 07/09/20 07/09/20 05:40 05:40 WBC 5.9 RBC 3.97 L Hgb 12.3 L Hct 35.5 L MCV 89.4 MCH 31.0 MCHC 34.6 RDW 12.8 Plt Count 162 MPV 10.4 I
== END 2020-07-09 17:08 | disposition home or self-care (01) | DRG 440 ==
LOC: ANHED 05:24 → ANH3MED 06:17
PROVIDERS: Admitting Provider Internal Medicine; Emergency Provider Emergency Medicine; PCP Family Medicine; Visit Provider Physician Assistant
DX: K85.90 Acute pancreatitis without necrosis or infection, unspecified (principal); K86.1 Other chronic pancreatitis; R91.1 Solitary pulmonary nodule; Z89.022 Acquired absence of left finger(s); Z87.891 Personal history of nicotine dependence
CPT/HCPCS: 36415; 74177; 76705; 80053; 80061; 83690; 85025; 93005; 96361; 96374; 96375; 99285; C9113; G0378; G0379; J1650; J2270; J2405; J7030; Q9967

== ENCOUNTER 2020-08-05 10:03 | Outpatient (CLI) | payer MEDICARE, SELFPAY ==
[2020-08-07 18:21] LABS: PSA, Free 0.83 ng/mL; PSA, Total 4.3 ng/mL (<=4.0); Percent Free Prostate Spec Ag 19 % (>25)
== END 2020-08-05 10:04 | disposition home or self-care (01) ==
LOC: CHSLAB 10:06
PROVIDERS: PCP Family Medicine; Visit Provider Family Medicine
DX: N40.1 Benign prostatic hyperplasia with lower urinary tract symptoms (principal); R35.1 Nocturia; R97.20 Elevated prostate specific antigen [PSA]
CPT/HCPCS: 36415; 84153; 84154

== ENCOUNTER 2021-05-20 20:35 | Inpatient (IN) | payer MEDICARE, SELFPAY ==
--- NOTE | ~2021-05-20 | CT_ITS ---
EXAMINATION: CT abdomen pelvis w con DATE: 05/20/2021 23:57 INDICATION: Upper abdominal pain. History of pancreatitis. TECHNIQUE: Computed tomography (CT) of the abdomen and pelvis was performed with 100 cc Omnipaque 350 intravenous contrast. The dose-length product was 638.79 mGy-cm. Automated exposure control and iter ative reconstruction technique were employed. COMPARISON: Comparison to multiple prior studies sequentially, with oldest reviewed study dated 11/28. FINDINGS: There is an 8 mm nodule in the lingula, unchanged dating back to 12/14/2018, likely benign. There are calcified granulomas in the left lower lobe. Borderline heart size. Small hiatal hernia. S mall pericardial effusion. Borderline heart size. No significant pleural effusion. There is acute maki creatitis with moderate surrounding fluid/phlegmonous change with mild pancreatic ductal dilation. No evidence for pancreatic necrosis or splenic vein thrombosis. Status post cholecystectomy with expect ed prominence of the bile ducts. The liver, adrenal glands and right kidney are unremarkable. There is a left renal cyst. There are ca lcified granulomas of the spleen. Nonobstructive bowel gas pattern. Colonic diverticulosis without ev idence for diverticulitis. Enlarged prostate gland. IMPRESSION: 1. Acute pancreatitis, likely superimposed on chronic pancreatitis. Reviewed, dictated and finalized at location A.
--- NOTE | ~2021-05-20 | US_ITS ---
US abdomen limited INDICATION: Pancreatitis PROCEDURE: Realtime right upper abdominal ultrasound. COMPARISON: No prior studies for comparison. FINDINGS: Pancreas is not well visualized due to bowel gas. Liver echotexture is normal without foca l mass or intrahepatic biliary dilatation. There is normal directional flow in the portal vein. Gallbladder is surgically absent. Common bile duct measures 4 mm. No sonographic Calix's sign. IMPRESSION: 1: Unremarkable limited abdominal ultrasound. Pancreas not adequately visualized. Reviewed, dictated and finalized at location A. IMPRESSION: 1: Unremarkable limited abdominal ultrasound. Pancreas not adequately visualize d.
[2021-05-20 21:06] VITALS: BP 125/76; PULSE 76; RESP 18; TEMP 36.6; O2SAT 100
[2021-05-20 21:24] LABS: Basophils Percent Auto 0.5 % (0.2-1.2); Eosinophils Absolute Auto 0.1 K/mm3 (0-0.3); Eosinophils Percent Auto 1.2 % (0-4.4); Hematocrit 37.5 % (42.0-52.0); Hemoglobin 13.1 g/dL (14.0-18.0); Immature Granulocyte Absolute 0.01 K/mm3 (0.00-0.031); Immature Granulocyte Percent A 0.1 % (0-0.5); Mean Corpuscular HGB Conc 34.9 g/dl (32-36); Mean Corpuscular Hemoglobin 31.4 pg (26-34); Mean Corpuscular Volume 89.9 fl (80-100); Mean Platelet Volume 9.6 fl (7.4-10.4); Monocytes Absolute Auto 0.7 K/mm3 (0.1-0.6); Neutrophils Absolute Auto 5.2 K/mm3 (1.3-6.7); Neutrophils Percent Auto 70.2 % (45.5-73.1); Platelet Count Result 233 k/mm3 (150-375); Red Blood Count 4.17 M/mm3 (4.6-6.20); White Blood Count 7.4 K/mm3 (4.5-10.0)
[2021-05-20 21:38] LABS: Alanine Aminotransferase 21 U/L (4-50); Albumin Level 4.3 g/dL (3.5-5.1); Alkaline Phosphatase 49 U/L (38-126); Anion Gap 7 mmol/L (8-16); Aspartate Amino Transferase 35 U/L (17-59); Bilirubin,Total 1.9 mg/dL (0.2-1.3); Blood Urea Nitrogen 21 mg/dL (9-20); Calcium 9.5 mg/dL (8.4-10.2); Carbon Dioxide 29 mmol/L (22-30); Chloride 106 mmol/L (98-107); Estimated CRCL calculation 67 ml/min; Estimated Glomerular Filt Rate > 60; Glucose 111 mg/dL (65-110); Potassium 4.2 mmol/L (3.4-5.0); Sodium 142 mmol/L (137-145)
[2021-05-20 22:06] LABS: Lipase 17239 U/L (23-300)
--- NOTE | 2021-05-20 23:25 | ED.ABDPAIN ---
HPI - Abdominal Pain General Chief Complaint: Abdominal Pain Stated Complaint: pancreas is acting up again hx pancreaititis Time Seen by Provider: 05/20/21 23:21 Source: patient Mode of arrival: ambulatory Limitations: no limitations History of Present Illness HPI narrative: Patient is a 71-year-old male complaining of upper abdominal pain, felt like I was punched in the stomach , 8 out of 10, nonradiating started 1 hour prior to arrival. Patient denies any chest pain, shortness of breath, nausea, vomiting, diaphoresis, fever or chills. Patient states that he has a history of pancreatitis. Related Data Allergies Allergy/AdvReac Type Severity Reaction Status Date / Time No Known Allergies Allergy Verified 05/20/21 23:36 Review of Systems Review of Systems: All systems reviewed & are unremarkable except as noted in HPI and below Constitutional: Constitutional: Denies body ache(s), Denies chills, Denies excessive sweating, Denies fatigue, Denies fever(s), Denies headache(s), Denies lethargy, Denies malaise, Denies weakness and Denies weight loss Eyes: Eyes: Denies blurry vision, Denies change in vision and Denies loss of vision ENT: Denies dizziness, Denies ear discharge, Denies headache(s), Denies lip swelling, Denies epistaxis, Denies nasal congestion, Denies neck pain, Denies throat swelling and Denies tongue swelling Cardiovascular: Cardiovascular: Denies chest pain, Denies chest pain at rest, Denies chest pain with activity, Denies diaphoresis, Denies rapid heart rate, Denies edema, Denies irregular heart rhythm, Denies lightheadedness, Denies palpitations, Denies dyspnea and Denies dyspnea on exertion Respiratory: Respiratory: Denies chest congestion, Denies cough, Denies hemoptysis, Denies dyspnea and Denies dyspnea on exertion Gastrointestinal: Gastrointestinal: Denies melena, Denies hematochezia, Denies diarrhea, Denies nausea, Denies vomiting and Denies hematemesis Musculoskeletal: Musculoskeletal: Denies abnormal gait, Denies deformity, Denies joint swelling, Denies limited range of motion, Denies neck pain and Denies numbness Neurologic: Denies Abnormal speech present, Denies abnormal gait, Denies confusion, Denies dizziness, Denies headache(s), Denies focal weakness, Denies loss of vision, Denies numbness, Denies Other visual disturbances, Denies Sensory deficit (Neuro) and Denies weakness Psychiatric: Psychiatric: Denies confusion, Denies depression, Denies auditory hallucinations, Denies homicidal ideation and Denies suicidal ideation Endocrine: Endocrine: Denies cold intolerance, Denies excessive sweating, Denies fatigue, Denies heat intolerance and Denies palpitations Hematologic/Lymphatic: Hematologic/Lymphatic: Denies easy bleeding and Denies easy bruising Allergic/Immunologic: Allergic/Immunologic: Denies lip swelling, Denies throat swelling and Denies tongue swelling PMFSH Past Medical History Medical History Amputation finger left first digit Epigastric pain Gallbladder sludge Left wrist fracture Normal endoscopy SBO (small bowel obstruction) Seborrheic keratoses Toe fracture, left big toe Surgical History Surgical History H/O skin graft left leg to index finger Family History Family History Father Malignant neoplasm of prostate Mother Lung cancer Stomach cancer Sibling History of female genital cancer Social History Social History Social History: The patient is and lives with his in [place], [place]. 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 His Rajni is a durable power internal medicine nurse practitioner for healthcare. Patient desires to be a full code. He smoked 3
[2021-05-20 23:36] VITALS: BP 138/88; PULSE 56; RESP 18; O2SAT 99
[2021-05-20 23:38] LABS: Add Urine Microscopic? YES; Appearance Urine Clear (Clear); Bilirubin Urine Negative (Negative); Blood Urine Negative (Negative); Color Urine Yellow (Yellow); Glucose Urine UA Negative (Negative); Ketones Urine Negative (Negative); Leukocyte Esterase Ur Trace LEU/UL (Negative); Mucus Urine Rare /lpf; Nitrate Urine Negative (Negative); Protein Urine Negative (Negative); RBC Urine 0-2 /hpf (0-2); Specific Grav Ur 1.009 (1.001-1.035); Urobilinogen Urine Negative mg/dL (<2.0); WBC Urine 0-3 /hpf
[2021-05-20] MEDS: LACTATED RINGERS 1,000 ML 999 ML IV CONT (23:39)
[2021-05-21] VITALS (12 sets, daily range): BP systolic 119–149; BP diastolic 66–94; PULSE 50–76; RESP 12–21; TEMP 36.3–37.1; O2SAT 94–100; BMI 30.4
[2021-05-21] MEDS: ONDANSETRON INJ 4 MG/2 ML VIAL IV PUSH (00:01)
[2021-05-21] MEDS: MORPHINE SULFATE (*CRX) 2 MG/ML INJ IV PUSH (00:01)
[2021-05-21 00:29] LABS: Lactic Acid Reflex 0.8 mmol/L (0.7-2.1)
[2021-05-21 00:42] LABS: Troponin I < 0.012 ng/mL (0.000-0.034)
[2021-05-21] MEDS: SODIUM CHLORIDE 0.9% IV 1,000 ML 999 ML IV CONT (00:50)
--- NOTE | 2021-05-21 01:09 | PM.IMHP ---
H&P: HPI History of Present Illness Date/Time: 05/21/21 01:09 Chief Complaint: 71 years old male with past medical history of elevated PSA pancreatitis presented to the hospital with sudden onset abdominal pain started today severe year worsening gradually associated with nausea denies fever or chills lipase was above 17,000 CT scan of the abdomen is pending but according to the ER showed acute pancreatitis no necrosis patient will be admitted to the hospital for further evaluation and treatment of acute pancreatitis. Review of Systems Review of Systems: All systems reviewed & are unremarkable except as noted in HPI and below PMFSH Past Medical History Medical History Amputation finger left first digit Epigastric pain Gallbladder sludge Left wrist fracture Normal endoscopy SBO (small bowel obstruction) Seborrheic keratoses Toe fracture, left big toe Surgical History Surgical History H/O skin graft left leg to index finger Family History Family History Father Malignant neoplasm of prostate Mother Lung cancer Stomach cancer Sibling History of female genital cancer Social History Social History Social History: The patient is and lives with his in [place], [place]. 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 His Rajni is a durable power deputy prosecuting attorney for healthcare. Patient desires to be a full code. He smoked 3 packs of cigarettes a day for 3 years and quit 1977. He denies drinking any alcohol. No drug use. Smoking status: Former smoker Additional smoking assessment comments: Quite 40 years ago Alcohol intake: former Substance use: never Gender identity (if verbalized by the patient): Male Spiritual care concerns: No Agree to blood products: Yes Meds Home Medications and Allergies Home Medications Medication Instructions Recorded Confirmed Type nystatin 100,000 unit/gram topical 1 applic TOPICAL BID #30 g 08/05/20 Rx ointment triamcinolone acetonide 0.1 % 1 applic TOPICAL BID #30 g 08/05/20 Rx topical cream tamsulosin 0.4 mg capsule 0.8 mg PO DAILY 90 Days #180 cap 11/11/20 Rx Allergies Allergy/AdvReac Type Severity Reaction Status Date / Time No Known Allergies Allergy Verified 05/20/21 23:36 Vital Signs Vital Signs - 24 hr 05/20/21 21:06 05/20/21 23:36 05/21/21 01:03 Temperature 98 F Pulse Rate 76 56 L 62 Respiratory Rate 18 18 13 Blood Pressure 125/76 138/88 145/91 H Pulse Oximetry 100 99 97 Exam Narrative: . Const: General: in distress HENMT: Mouth: Yes dry mucous membranes Eyes: Sclera: sclerae normal Neck: Neck: no JVD Resp: Auscultation: clear to auscultation bilaterally Cardio: Rate: regular rate Rhythm: regular rhythm GI: Inspection: non-distended GI Palp: Yes Tenderness to palpation present (GI) Auscultation: normal bowel sounds Skin: General skin exam: normal color Neuro: Cognition (Neuro): normal cognition Motor exam (neuro): 5/5 motor strength present throughout Extrem: General: normal to inspection Right upper extremity: normal to inspection Left upper extremity: normal to inspection Right lower extremity: normal to inspection Left lower extremity: normal to inspection Psych: Mental Status: mental status grossly normal H&P: Results Labs Labs: Short CBC 05/20/21 Range/Units 21:12 WBC 7.4 (4.5-10.0) K/mm3 Hgb 13.1 L (14.0-18.0) g/dL Hct 37.5 L (42.0-52.0) % Plt Count 233 (150-375) k/mm3 [facility] 05/20/21 21:12 Sodium 142 Potassium 4.2 Chloride 106 Carbon Dioxide 29 BUN 21 H Creatinine 1.00 Glucose 111 H Liu
[2021-05-21] MEDS: ENOXAPARIN 40 MG/0.4 ML SYRINGE SUB-Q ×2 (01:34→09:11)
[2021-05-21 01:51] LABS: Cholesterol 184 mg/dL (0-200); HDL Direct 41 mg/dL; Triglycerides 59 mg/dL (<150)
[2021-05-21 01:58] LABS: Amphetamine Screen Urine Negative (Negative); Barbiturate Screen Urine Negative (Negative); Benzodiazepines Screen Urine Negative (Negative); Cannabinoid Screen Urine Negative (Negative); Cocaine Screen Urine Negative (Negative); Methadone Screen Urine Negative (Negative); Opiate Screen Urine Positive (Negative); Phencyclidine Screen Urine Negative (Negative)
[2021-05-21 02:02] LABS: LDL Cholesterol Direct 117 mg/dL
[2021-05-21] MEDS: SODIUM CHLORIDE 0.45% 1,000 ML 175 ML IV CONT (02:04)
[2021-05-21 02:18] LABS: SARS-CoV-2 RNA PCR Negative
[2021-05-21] MEDS: HYDROcodone/acetaminophen (*CRX) 5-325 MG TABLET 1 TAB PO (03:28)
--- NOTE | 2021-05-21 03:31 | ADMGEN ---
This patient, Jeramy Blood, was admitted to Medical Room 246-01. Patient/family oriented to hospital policies and general routines including ID bracelet, bed and alarms, visiting hours, pain management, procedures, bathroom and other care routines, personal items, smoking policy, room service/diet, and visiting hours. Information on how to activate the Rapid Response Team has been discussed. Patient/Family are encouraged to report perceived risks to care and to ask questions if they do not understand what they are told or what they should do.
[2021-05-21 06:34] LABS: Basophils Percent Auto 0.4 % (0.2-1.2); Eosinophils Absolute Auto 0.1 K/mm3 (0-0.3); Eosinophils Percent Auto 2.5 % (0-4.4); Hematocrit 32.9 % (42.0-52.0); Hemoglobin 11.4 g/dL (14.0-18.0); Immature Granulocyte Absolute 0.02 K/mm3 (0.00-0.031); Immature Granulocyte Percent A 0.4 % (0-0.5); Lymphocytes Absolute Auto 1.49 K/mm3 (0.9-3.2); Lymphocytes Percent Auto 27.1 % (18.3-44.2); Mean Corpuscular HGB Conc 34.7 g/dl (32-36); Mean Corpuscular Hemoglobin 31.1 pg (26-34); Mean Corpuscular Volume 89.6 fl (80-100); Mean Platelet Volume 9.8 fl (7.4-10.4); Monocytes Absolute Auto 0.5 K/mm3 (0.1-0.6); Monocytes Percent Auto 8.9 % (2.6-8.5); Neutrophils Absolute Auto 3.3 K/mm3 (1.3-6.7); Neutrophils Percent Auto 60.7 % (45.5-73.1); Platelet Count Result 184 k/mm3 (150-375); Red Blood Count 3.67 M/mm3 (4.6-6.20); White Blood Count 5.5 K/mm3 (4.5-10.0)
[2021-05-21 06:43] LABS: Potassium 3.8 mmol/L (3.4-5.0)
[2021-05-21 06:52] LABS: Alanine Aminotransferase 17 U/L (4-50); Albumin Level 3.5 g/dL (3.5-5.1); Alkaline Phosphatase 43 U/L (38-126); Anion Gap 4 mmol/L (8-16); Aspartate Amino Transferase 29 U/L (17-59); Bilirubin,Total 2.1 mg/dL (0.2-1.3); Blood Urea Nitrogen 17 mg/dL (9-20); Calcium 8.4 mg/dL (8.4-10.2); Carbon Dioxide 28 mmol/L (22-30); Chloride 108 mmol/L (98-107); Estimated CRCL calculation 80 ml/min; Estimated Glomerular Filt Rate > 60; Glucose 84 mg/dL (65-110); Sodium 140 mmol/L (137-145)
[2021-05-21] MEDS: TAMSULOSIN HCL 0.4 MG CAPSULE 0.8 MG PO (08:09)
[2021-05-21] MEDS: PANTOPRAZOLE SODIUM IV 40 MG VIAL IV PUSH (08:16)
[2021-05-21] MEDS: SODIUM CHLORIDE 0.45% 1,000 ML 125 ML IV CONT ×2 (08:21→17:09)
--- NOTE | 2021-05-21 10:34 | PM.IMPN ---
Progress Note: A&P Assessment and Plan (1) Acute pancreatitis: Qualifiers: Acute pancreatitis complication: unspecified Pancreatitis type: unspecified pancreatitis type Qualified Code(s): K85.90 - Acute pancreatitis without necrosis or infection, unspecified Code(s): K85.90 - Acute pancreatitis without necrosis or infection, unspecified Status: Acute Assessment and Plan: -acute on chronic pancreatitis -s/p cholecystectomy last year, this is his first attack since that time -lipase >17,000 -NPO -Pain control -IVF -GI consult -lipid panel WNL -no offending medications on his med list (2) BPH associated with nocturia: Code(s): N40.1 - Benign prostatic hyperplasia with lower urinary tract symptoms; R35.1 - Nocturia Status: Acute Assessment and Plan: -Resume home medication Subjective Date/time seen: 05/21/21 10:34 Interval history: 71 yo male w/ hx of recurrent pancreatitis s/p cholecystectomy admitted for acute pancreatitis. He is feeling better today. Still having epigastric pain but it has improved significantly. No N/V. Had a normal BM last night. No fevers. No cp/sob. Review of Systems Review of Systems: All systems reviewed & are unremarkable except as noted in HPI and below Exam Narrative: General: No acute distress, non toxic appearing Eyes: PERRL, no scleral icterus HEENT: NCAT, external ears normal, MMM Respiratory: No respiratory distress, Lungs CTA bilaterally, no wheezing Cardiovascular: RRR, no murmur Abdominal: Soft, moderate epigastric ttp, positive bowel sounds, some mild guarding Musculoskeletal: Moves all 4 extremities, no edema Neurological: A/Ox3, speech normal, no facial asymmetry Skin: Warm, dry, no rashes Psychiatric: Normal affect, normal mood Objective Data Vital Signs Vital Signs: Vital Signs - 24 hr 05/20/21 21:06 05/20/21 23:36 05/21/21 01:03 Temperature 98 F Pulse Rate 76 56 L 62 Respiratory Rate 18 18 13 Blood Pressure 125/76 138/88 145/91 H Pulse Oximetry 100 99 97 05/21/21 02:10 05/21/21 03:05 05/21/21 04:00 Temperature 97.3 F L Pulse Rate 58 L 55 L 55 L Respiratory Rate 12 16 21 H Blood Pressure 138/86 145/94 H 144/82 H Pulse Oximetry 100 100 100 05/21/21 08:20 Temperature 97.5 F L Pulse Rate 51 L Respiratory Rate 16 Blood Pressure 124/74 Pulse Oximetry 94 Intake/Output Intake/Output: Intake & Output 05/18/21 05/19/21 05/20/21 05/21/21 23:59 23:59 23:59 23:59 Intake Total 3000 Balance 3000 Meds/Results Medications: Active Medications Generic Name Dose Route Start Last Admin Trade Name Freq PRN Reason Stop Dose Admin Acetaminophen 650 mg 05/21/21 01:05 Acetaminophen 325 Mg Tablet PO Q4H PRN Mild Pain (1-3) or Fever Hydrocodone Bitart/Acetaminophen 1 tab 05/21/21 01:05 05/21/21 03:28 Hydrocodone/Acetaminophen (*Crx) 5-325 Mg Tablet PO 1 tab Q4H PRN Administration Moderate Pain (4-6) Enoxaparin Sodium 40 mg 05/21/21 01:10 05/21/21 09:11 Enoxaparin 40 Mg/0.4 Ml Syringe SUB-Q 40 mg DAILY DOMINGUEZ Administration Sodium Chloride 1,000 mls @ 125 mls/hr 05/21/21 01:05 05/21/21 08:21 Sodium Chloride 0.45% IV CONT 125 mls/hr .Q8H DOMINGUEZ Administration Morphine Sulfate 2 mg 05/21/21 01:05 Morphine Sulfate (*Crx) 2 Mg/Ml Inj IV PUSH Q4H PRN Pain Rated 7-10 Ondansetron HCl 4 mg 05/21/21 01:05 Ondansetron Inj 4 Mg/2 Ml Vial IV PUSH Q4H PRN Nausea Pantoprazole Sodium 40 mg 05/21/21 09:00 05/21/21 08:16 Pantoprazole Sodium Iv 40 Mg Vial IV PUSH 05/25/21 11:00 40 mg DAILY DOMINGUEZ Administration Solifenacin 10 mg 05/21/21 06:58 Solifenacin 5 Mg Tablet PO HS PRN urinary urgency/frequency Tamsulosin HCl 0.8 mg 05/21/21 09:00 05/21/21 08:09 Tamsulosin Hcl 0.4 Mg Capsule PO 0.8 mg DAILY DOMINGUEZ Administration Radiology Results: ITS Impressions Abdome
--- NOTE | 2021-05-21 13:05 | WPDGICN ---
Assessment and Plan Assessment and plan (1) Acute on chronic pancreatitis: Code(s): K85.90 - Acute pancreatitis without necrosis or infection, unspecified; K86.1 - Other chronic pancreatitis Status: Acute Assessment and Plan: he has been doing ok since cholecystectomy he wonders if this time triggered by fatty meal already feeling better, continue with supportive care and will start liquid diet he is planning to see his GI doctor, Latanya, in few more months CT scan reviewed (2) Epigastric pain: Code(s): R10.13 - Epigastric pain Status: Acute Assessment and Plan: better (3) Elevated bilirubin: Code(s): R17 - Unspecified jaundice Status: Acute Assessment and Plan: stable, other liver enzymes normal. (4) Nausea: Code(s): R11.0 - Nausea Status: Acute GI Consult Note Consult date/time: 05/21/21 13:05 Reason for consult: acute on chronic pancreatitis. HPI: Jeramy Blood is a 71 year old male with previous episode of pancreatitis last time I saw him 06/2020 since he has seen Dr Moreno last year, had ERCP with stenting but removed soon after his cholecystectomy. He denies any more episodes of pancreatitis until this hospitalization. He came here with epigastric pain that was severe similar to previous episode and started after had heavy meal at home, also nausea. No fever. Denies alcohol use. CT scan a/p reviewed and showed acute pancreatitis, likely superimposed on chronic pancreatitis. Lipase elevated at 17k, bili 2 other liver enzymes normal. Today he is feeling better and would like to try to eat. Review of Systems Constitutional: Constitutional: Denies chills Eyes: Eyes: Denies blurry vision ENT: Reports Normal hearing present Cardiovascular: Cardiovascular: Denies chest pain Respiratory: Respiratory: Denies dyspnea Gastrointestinal: Gastrointestinal: Reports abdominal pain and Reports nausea Genitourinary: Genitourinary: Denies dysuria Musculoskeletal: Musculoskeletal: Denies neck pain Integumentary/Breasts: Skin/Breast: Denies dry skin Psychiatric: Psychiatric: Denies behavioral changes [facility] Past Medical History Medical History (Updated 05/21/21 @ 13:11 by Kartik Diggs MD) Amputation finger left first digit Elevated bilirubin Epigastric pain Gallbladder sludge Left wrist fracture Nausea Normal endoscopy SBO (small bowel obstruction) Seborrheic keratoses Toe fracture, left big toe Surgical History Surgical History H/O skin graft left leg to index finger Family History Family History Father Malignant neoplasm of prostate Mother Lung cancer Stomach cancer Sibling History of female genital cancer Social History Social History Social History: The patient is and lives with his in [place], [place]. 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 His Rajni is a durable power deputy prosecuting attorney for healthcare. Patient desires to be a full code. He smoked 3 packs of cigarettes a day for 3 years and quit 1977. He denies drinking any alcohol. No drug use. Smoking packs per day: 1.5 Smoking cigarettes per day: 30.0 Years smoked: 6 Smoking pack-years: 9.00 Smoking status: Former smoker Tobacco type: cigarettes Additional smoking assessment comments: Quite 40 years ago Alcohol intake: former Substance use: never Gender identity (if verbalized by the patient): Male Spiritual care concerns: No Agree to blood products: Yes Meds Home Medications and Allergies Home Medications Medication Instructions Recorded Confirmed Type tamsulosin 0.4 mg capsule 0.8 mg PO DAILY 90 Days #180 cap
--- NOTE | 2021-05-21 23:25 | ECG_ITS ---
Measurements Intervals [place] Rate: 53 P: 73 [place]: 208 QRS: -1 QRSD: 114 T: 2 QT: 434 QTc: 408 Interpretive Statements SINUS BRADYCARDIA MODERATE INTRAVENTRICULAR CONDUCTION DELAY [110+ ms QRS DURATION] NONSPECIFIC ST AND T-WAVE ABNORMALITY ABNORMAL ECG COMPARED TO ECG 07/08/2020 05:41:45 INTRAVENTRICULAR CONDUCTION DELAY NOW PRESENT Electronically Signed On 05-21-2021 15:50:37 CDT by Torsten Guerrero M.D.
[2021-05-22 00:55] VITALS: BP 130/71; PULSE 62; RESP 18; TEMP 36.7; O2SAT 96
[2021-05-22] MEDS: SODIUM CHLORIDE 0.45% 1,000 ML 125 ML IV CONT ×2 (01:14→09:55)
[2021-05-22 06:00] VITALS: BP 128/65; PULSE 52; RESP 14; TEMP 37.1; O2SAT 97
[2021-05-22 06:04] LABS: Basophils Percent Auto 0.8 % (0.2-1.2); Eosinophils Absolute Auto 0.1 K/mm3 (0-0.3); Hematocrit 33.8 % (42.0-52.0); Hemoglobin 11.7 g/dL (14.0-18.0); Immature Granulocyte Absolute 0.01 K/mm3 (0.00-0.031); Immature Granulocyte Percent A 0.2 % (0-0.5); Lymphocytes Absolute Auto 1.31 K/mm3 (0.9-3.2); Lymphocytes Percent Auto 27.6 % (18.3-44.2); Mean Corpuscular HGB Conc 34.6 g/dl (32-36); Mean Corpuscular Hemoglobin 31.4 pg (26-34); Mean Corpuscular Volume 90.6 fl (80-100); Mean Platelet Volume 10.2 fl (7.4-10.4); Monocytes Absolute Auto 0.4 K/mm3 (0.1-0.6); Monocytes Percent Auto 7.6 % (2.6-8.5); Neutrophils Absolute Auto 2.9 K/mm3 (1.3-6.7); Neutrophils Percent Auto 60.8 % (45.5-73.1); Platelet Count Result 198 k/mm3 (150-375); Red Blood Count 3.73 M/mm3 (4.6-6.20); Red Cell Distribution Width 12.8 % (11.5-14.5); White Blood Count 4.7 K/mm3 (4.5-10.0)
[2021-05-22 06:11] LABS: Alanine Aminotransferase 16 U/L (4-50); Albumin Level 3.3 g/dL (3.5-5.1); Alkaline Phosphatase 45 U/L (38-126); Anion Gap 6 mmol/L (8-16); Aspartate Amino Transferase 27 U/L (17-59); Bilirubin,Total 2.9 mg/dL (0.2-1.3); Blood Urea Nitrogen 14 mg/dL (9-20); Calcium 8.2 mg/dL (8.4-10.2); Carbon Dioxide 25 mmol/L (22-30); Chloride 106 mmol/L (98-107); Estimated CRCL calculation 90 ml/min; Estimated Glomerular Filt Rate > 60; Glucose 77 mg/dL (65-110); Potassium 3.6 mmol/L (3.4-5.0); Sodium 137 mmol/L (137-145)
[2021-05-22] MEDS: ENOXAPARIN 40 MG/0.4 ML SYRINGE SUB-Q (08:36)
[2021-05-22] MEDS: TAMSULOSIN HCL 0.4 MG CAPSULE 0.8 MG PO (08:36)
[2021-05-22] MEDS: PANTOPRAZOLE SODIUM IV 40 MG VIAL IV PUSH (08:36)
[2021-05-22 10:00] VITALS: BP 117/70; PULSE 64; RESP 18; TEMP 36.6; O2SAT 100
--- NOTE | 2021-05-22 12:50 | PM.IMPN ---
Progress Note: A&P Assessment and Plan (1) Acute pancreatitis: Qualifiers: Acute pancreatitis complication: unspecified Pancreatitis type: unspecified pancreatitis type Qualified Code(s): K85.90 - Acute pancreatitis without necrosis or infection, unspecified Code(s): K85.90 - Acute pancreatitis without necrosis or infection, unspecified Status: Acute Assessment and Plan: -acute on chronic pancreatitis -s/p cholecystectomy last year, this is his first attack since that time -lipase >17,000 -lipid panel WNL -no offending medications on his med list -seen by GI -tolerating clears, will advance to fulls, low fat for dinner if tolerating -recheck lipase in AM, hopeful discharge tomorrow as long as he is tolerating his diet (2) BPH associated with nocturia: Code(s): N40.1 - Benign prostatic hyperplasia with lower urinary tract symptoms; R35.1 - Nocturia Status: Acute Assessment and Plan: -Resume home medication Subjective Date/time seen: 05/22/21 12:50 Interval history: 71 yo male w/ hx of recurrent pancreatitis s/p cholecystectomy admitted for acute pancreatitis. Feeling much better. No N/V/ab pain. Tolerating clears. Will advance to fulls. No cp/sob. Review of Systems Review of Systems: All systems reviewed & are unremarkable except as noted in HPI and below Exam Narrative: General: No acute distress, non toxic appearing Eyes: PERRL, no scleral icterus HEENT: NCAT, external ears normal, MMM Respiratory: No respiratory distress, Lungs CTA bilaterally, no wheezing Cardiovascular: RRR, no murmur Abdominal: Soft, non tender, positive bowel sounds, some mild guarding Musculoskeletal: Moves all 4 extremities, no edema Neurological: A/Ox3, speech normal, no facial asymmetry Skin: Warm, dry, no rashes Psychiatric: Normal affect, normal mood Objective Data Vital Signs Vital Signs: Vital Signs - 24 hr 05/21/21 15:24 05/21/21 16:04 05/21/21 18:18 Temperature 98.6 F 97.6 F Pulse Rate 50 L 68 76 Respiratory Rate 16 16 Blood Pressure 119/76 132/73 Pulse Oximetry 97 97 05/21/21 21:10 05/22/21 00:55 05/22/21 06:00 Temperature 98.7 F 98.1 F 98.8 F Pulse Rate 55 L 62 52 L Respiratory Rate 16 18 14 Blood Pressure 149/76 H 130/71 128/65 Pulse Oximetry 96 96 97 05/22/21 10:00 Temperature 97.9 F Pulse Rate 64 Respiratory Rate 18 Blood Pressure 117/70 Pulse Oximetry 100 Intake/Output Intake/Output: Intake & Output 05/19/21 05/20/21 05/21/21 05/22/21 23:59 23:59 23:59 23:59 Intake Total 9625 3360 Balance 4769 3360 Meds/Results Medications: Active Medications Generic Name Dose Route Start Last Admin Trade Name Freq PRN Reason Stop Dose Admin Acetaminophen 650 mg 05/21/21 01:05 Acetaminophen 325 Mg Tablet PO Q4H PRN Mild Pain (1-3) or Fever Hydrocodone Bitart/Acetaminophen 1 tab 05/21/21 01:05 05/21/21 03:28 Hydrocodone/Acetaminophen (*Crx) 5-325 Mg Tablet PO 1 tab Q4H PRN Administration Moderate Pain (4-6) Enoxaparin Sodium 40 mg 05/21/21 01:10 05/22/21 08:36 Enoxaparin 40 Mg/0.4 Ml Syringe SUB-Q 40 mg DAILY DOMINGUEZ Administration Sodium Chloride 1,000 mls @ 125 mls/hr 05/21/21 01:05 05/22/21 09:55 Sodium Chloride 0.45% IV CONT 125 mls/hr .Q8H DOMINGUEZ Administration Morphine Sulfate 2 mg 05/21/21 01:05 Morphine Sulfate (*Crx) 2 Mg/Ml Inj IV PUSH Q4H PRN Pain Rated 7-10 Ondansetron HCl 4 mg 05/21/21 01:05 Ondansetron Inj 4 Mg/2 Ml Vial IV PUSH Q4H PRN Nausea Pantoprazole Sodium 40 mg 05/21/21 09:00 05/22/21 08:36 Pantoprazole Sodium Iv 40 Mg Vial IV PUSH 05/25/21 11:00 40 mg DAILY DOMINGUEZ Administration Solifenacin 10 mg 05/21/21 06:58 Solifenacin 5 Mg Tablet PO HS PRN urinary urgency/frequency Tamsulosin HCl 0.8 mg 05/21/21 09:00 05/22/21 08:36 Tamsulosin Hcl 0.4 Mg Capsule PO 0.8 mg DAILY SC
[2021-05-22 13:55] VITALS: BP 110/82; PULSE 65; RESP 18; TEMP 36.4; O2SAT 100
--- NOTE | 2021-05-22 14:00 | PC.NURSE ---
On 05/22/21, the student, [Raleigh Saunders & Bibi Cheng], provided care and completed [employer] documentation on this patient. I have reviewed the student's documentation and agree with the findings.
--- NOTE | 2021-05-22 15:51 | WPDGIPROGNO ---
Progress Note: A&P Assessment and Plan (1) Acute on chronic pancreatitis: Code(s): K85.90 - Acute pancreatitis without necrosis or infection, unspecified; K86.1 - Other chronic pancreatitis Status: Acute Assessment and Plan: pain is gone, will advance to low fat diet I will expect that lipase still will be high tomorrow but as long as he is feeling better, he can go home tomorrow and then follow-up with his GI doctor in [facility]. (2) Epigastric pain: Code(s): R10.13 - Epigastric pain Status: Acute Assessment and Plan: resolved Subjective Date/time seen: 05/22/21 15:51 Interval history: tolerated full liquid diet, no more abdominal pain and back to his baseline. Review of Systems Review of Systems: All systems reviewed & are unremarkable except as noted in HPI and below Exam Const: General: comfortable and no acute distress HENMT: General nose exam: Normal nares present Eyes: General: appearance normal, both eyes and all related structures Neck: Neck: no JVD Resp: Auscultation: clear to auscultation bilaterally Cardio: Rate: regular rate Rhythm: regular rhythm GI: Inspection: non-distended GI Palp: Yes Soft to palpation, No Tenderness to palpation present (GI) and No Guarding due to palpation present (GI) Auscultation: normal bowel sounds Skin: General skin exam: normal color Neuro: Speech: normal speech Motor exam (neuro): Normal motor muscle tone present throughout Extrem: General: normal to inspection Psych: Mental Status: mental status grossly normal Objective Data Vital Signs Vital Signs: Vital Signs - 24 hr 05/21/21 16:04 05/21/21 18:18 05/21/21 21:10 Temperature 97.6 F 98.7 F Pulse Rate 68 76 55 L Respiratory Rate 16 16 Blood Pressure 132/73 149/76 H Pulse Oximetry 97 96 05/22/21 00:55 05/22/21 06:00 05/22/21 10:00 Temperature 98.1 F 98.8 F 97.9 F Pulse Rate 62 52 L 64 Respiratory Rate 18 14 18 Blood Pressure 130/71 128/65 117/70 Pulse Oximetry 96 97 100 05/22/21 13:55 Temperature 97.5 F L Pulse Rate 65 Respiratory Rate 18 Blood Pressure 110/82 Pulse Oximetry 100 Intake/Output Intake/Output: Intake & Output 05/19/21 05/20/21 05/21/21 05/22/21 23:59 23:59 23:59 23:59 Intake Total 7406 3360 Balance 4470 3360 Meds/Results Medications: Active Medications Generic Name Dose Route Start Last Admin Trade Name Freq PRN Reason Stop Dose Admin Acetaminophen 650 mg 05/21/21 01:05 Acetaminophen 325 Mg Tablet PO Q4H PRN Mild Pain (1-3) or Fever Hydrocodone Bitart/Acetaminophen 1 tab 05/21/21 01:05 05/21/21 03:28 Hydrocodone/Acetaminophen (*Crx) 5-325 Mg Tablet PO 1 tab Q4H PRN Administration Moderate Pain (4-6) Enoxaparin Sodium 40 mg 05/21/21 01:10 05/22/21 08:36 Enoxaparin 40 Mg/0.4 Ml Syringe SUB-Q 40 mg DAILY DOMINGUEZ Administration Morphine Sulfate 2 mg 05/21/21 01:05 Morphine Sulfate (*Crx) 2 Mg/Ml Inj IV PUSH Q4H PRN Pain Rated 7-10 Ondansetron HCl 4 mg 05/21/21 01:05 Ondansetron Inj 4 Mg/2 Ml Vial IV PUSH Q4H PRN Nausea Pantoprazole Sodium 40 mg 05/21/21 09:00 05/22/21 08:36 Pantoprazole Sodium Iv 40 Mg Vial IV PUSH 05/25/21 11:00 40 mg DAILY DOMINGUEZ Administration Solifenacin 10 mg 05/21/21 06:58 Solifenacin 5 Mg Tablet PO HS PRN urinary urgency/frequency Tamsulosin HCl 0.8 mg 05/21/21 09:00 05/22/21 08:36 Tamsulosin Hcl 0.4 Mg Capsule PO 0.8 mg DAILY DOMINGUEZ Administration Radiology Results: ITS Impressions Abdomen/Pelvis CT 05/21/21 07:26 IMPRESSION: 1. Acute pancreatitis, likely superimposed on chronic pancreatitis. Abdomen Ultrasound 05/21/21 11:57 IMPRESSION: 1: Unremarkable limited abdominal ultrasound. Pancreas not adequately visualized. Labs Labs: Laboratory Results - last 24 hr 05/22/21 05/22/21 05:12 05:12 WBC 4.7 RBC 3.73 L Hgb 11.7 L Hct
[2021-05-22 18:00] VITALS: BP 115/72; PULSE 62; RESP 16; TEMP 36.7; O2SAT 99
[2021-05-22 21:19] VITALS: BP 106/70; PULSE 59; RESP 16; TEMP 37; O2SAT 95
[2021-05-23 00:59] VITALS: BP 153/74; PULSE 60; RESP 14; TEMP 36.7; O2SAT 97
[2021-05-23 05:53] LABS: Basophils Percent Auto 0.7 % (0.2-1.2); Eosinophils Absolute Auto 0.2 K/mm3 (0-0.3); Eosinophils Percent Auto 3.7 % (0-4.4); Hematocrit 33.2 % (42.0-52.0); Immature Granulocyte Absolute 0.01 K/mm3 (0.00-0.031); Immature Granulocyte Percent A 0.2 % (0-0.5); Lymphocytes Absolute Auto 1.29 K/mm3 (0.9-3.2); Lymphocytes Percent Auto 30.1 % (18.3-44.2); Mean Corpuscular HGB Conc 36.1 g/dl (32-36); Mean Corpuscular Hemoglobin 32.3 pg (26-34); Mean Corpuscular Volume 89.2 fl (80-100); Mean Platelet Volume 10.1 fl (7.4-10.4); Monocytes Absolute Auto 0.4 K/mm3 (0.1-0.6); Monocytes Percent Auto 9.8 % (2.6-8.5); Neutrophils Absolute Auto 2.4 K/mm3 (1.3-6.7); Neutrophils Percent Auto 55.5 % (45.5-73.1); Platelet Count Result 193 k/mm3 (150-375); Red Blood Count 3.72 M/mm3 (4.6-6.20); Red Cell Distribution Width 12.8 % (11.5-14.5); White Blood Count 4.3 K/mm3 (4.5-10.0)
[2021-05-23 06:03] LABS: Alanine Aminotransferase 17 U/L (4-50); Albumin Level 3.7 g/dL (3.5-5.1); Alkaline Phosphatase 45 U/L (38-126); Anion Gap 4 mmol/L (8-16); Aspartate Amino Transferase 28 U/L (17-59); Bilirubin,Total 2.1 mg/dL (0.2-1.3); Blood Urea Nitrogen 11 mg/dL (9-20); Calcium 8.9 mg/dL (8.4-10.2); Carbon Dioxide 28 mmol/L (22-30); Chloride 107 mmol/L (98-107); Estimated CRCL calculation 90 ml/min; Estimated Glomerular Filt Rate > 60; Glucose 100 mg/dL (65-110); Lipase 1514 U/L (23-300); Potassium 3.6 mmol/L (3.4-5.0); Sodium 139 mmol/L (137-145)
[2021-05-23 06:19] VITALS: BP 149/77; PULSE 55; RESP 15; TEMP 36.7; O2SAT 98
[2021-05-23] MEDS: TAMSULOSIN HCL 0.4 MG CAPSULE 0.8 MG PO (08:51)
[2021-05-23] MEDS: ENOXAPARIN 40 MG/0.4 ML SYRINGE SUB-Q (08:52)
[2021-05-23] MEDS: PANTOPRAZOLE SODIUM IV 40 MG VIAL IV PUSH (08:52)
--- NOTE | 2021-05-23 08:58 | PM.DS ---
DS: Admitting Diagnosis Discharge Date 05/23/21 Admitting Diagnosis acute pancreatitis DS: Discharge Diagnosis Discharge Diagnosis (1) Acute pancreatitis: Qualifiers: Acute pancreatitis complication: unspecified Pancreatitis type: unspecified pancreatitis type Qualified Code(s): K85.90 - Acute pancreatitis without necrosis or infection, unspecified Code(s): K85.90 - Acute pancreatitis without necrosis or infection, unspecified Status: Acute Assessment and Plan: -acute on chronic pancreatitis -s/p cholecystectomy last year, this is his first attack since that time -lipase >17,000 -lipid panel WNL -no offending medications on his med list -seen by GI -tolerating low fat diet without difficulty -lipase still mildly elevated at 1514 but this is significantly improved and he is asymptomatic -stable for discharge with his GI specialist in [place] -recommended low fat diet and plenty of fluids on discharge. All questions and concerns addressed. Return precautions provided. (2) BPH associated with nocturia: Code(s): N40.1 - Benign prostatic hyperplasia with lower urinary tract symptoms; R35.1 - Nocturia Status: Acute Assessment and Plan: -Resumed home medication DS: Summary Hospital Course Reason for hospitalization: 71 yo male w/ hx of recurrent pancreatitis s/p cholecystectomy admitted for acute pancreatitis. Please see HPI for further details. Hospital Course: Please see above for details of hospital course. Status at Discharge Cognitive/behavioral status at discharge: stable Functional status at discharge: independent ambulation Overall status at discharge: patient is progressing back to baseline Time Spent with Patient Time attestation: Total time spent providing and/or coordinating discharge services:31 Time spent: Greater than 30 minutes Exam Narrative: General: No acute distress, non toxic appearing Eyes: PERRL, no scleral icterus HEENT: NCAT, external ears normal, MMM Respiratory: No respiratory distress, Lungs CTA bilaterally, no wheezing Cardiovascular: RRR, no murmur Abdominal: Soft, non tender, positive bowel sounds, no rebound or guarding Musculoskeletal: Moves all 4 extremities, no edema Neurological: A/Ox3, speech normal, no facial asymmetry Skin: Warm, dry, no rashes Psychiatric: Normal affect, normal mood DS: Data Data Completed and Pending Labs on day of discharge: Labs from last 24 hours 05/23/21 05/23/21 05:10 05:10 WBC 4.3 L RBC 3.72 L Hgb 12.0 L Hct 33.2 L MCV 89.2 MCH 32.3 MCHC 36.1 H RDW 12.8 Plt Count 193 MPV 10.1 Immature Gran % (Auto) 0.2 Neut % (Auto) 55.5 Lymph % (Auto) 30.1 [place] % (Auto) 9.8 H Eos % (Auto) 3.7 Baso % (Auto) 0.7 Lymph # (Auto) 1.29 [place] # (Auto) 0.4 Eos # (Auto) 0.2 Baso # (Auto) 0.0 Abs Immat Gran (auto) 0.01 Absolute Neuts (auto) 2.4 Absolute Nucleated RBC 0.0 Nucleated RBC % 0.0 Sodium 139 Potassium 3.6 Chloride 107 Carbon Dioxide 28 Anion Gap 4 L BUN 11 Creatinine 0.80 Estim Creat Clear Calc 90 Estimated GFR > 60 Glucose 100 Calcium 8.9 Total Bilirubin 2.1 H AST 28 ALT 17 Alkaline Phosphatase 45 Total Protein 6.0 L Albumin 3.7 Lipase 1514 H Discharge Plan Discharge Attending physician on discharge: Driss Suarez Consulting providers: Kartik Diggs Discharging Clinician: Joycelyn Harley Anticipated Discharge Date/Time: 05/23/21 09:01 Patient Disposition: Home, Self-Care Activity: may shower Diet: low fat Discharge Instructions: Please continue low fat diet with plenty of fluids. You should follow up in 1-2 weeks with your GI specialist in [facility]. Please return to ED for any new or worsening symptoms. Patient Instructions: Antibiotic Form Stand Alone Forms: General Discharge Information Follow-up/Referrals: Roland Cheung
== END 2021-05-23 10:10 | disposition home or self-care (01) | DRG 440 ==
LOC: ANHED 05-21 01:04 → ANH2MED 05-21 02:52
PROVIDERS: Admitting Provider Internal Medicine; Emergency Provider Emergency Medicine; PCP Family Medicine; Visit Provider Internal Medicine
DX: K85.90 Acute pancreatitis without necrosis or infection, unspecified (principal); K86.1 Other chronic pancreatitis; N40.1 Benign prostatic hyperplasia with lower urinary tract symptoms; R35.1 Nocturia; Z20.822 Contact with and (suspected) exposure to COVID-19; R79.89 Other specified abnormal findings of blood chemistry; Z90.49 Acquired absence of other specified parts of digestive tract; Z87.891 Personal history of nicotine dependence; Z89.022 Acquired absence of left finger(s)
CPT/HCPCS: 36415; 74177; 76705; 80053; 80061; 80307; 81001; 83605; 83690; 84484; 85025; 93005; 96361; 96374; 96375; 99285; A9270; C9113; C9803; G0378; J1650; J2270; J2405; J7030; J7120; Q9967; U0003; U0005

== ENCOUNTER 2022-01-04 21:29 | Inpatient (IN) | payer MEDICARE, SELFPAY ==
--- NOTE | ~2022-01-04 | CT_ITS ---
EXAMINATION: CT abdomen pelvis w con DATE: 01/05/2022 00:02 INDICATION: Abdominal pain. Prior pancreatitis. TECHNIQUE: Computed tomography (CT) of the abdomen and pelvis was performed with 100 mL Omnipaque-350 intravenous contrast. Automated exposure control and iterative reconstruction technique were employe d. The dose-length product was 753.84 mGy-cm. COMPARISON: 05/20/2021 and 05/27/2019 FINDINGS: Mild dependent atelectasis at the bilateral lower lobes. Chronic likely benign 8 mm nodule lingula un changed since 05/27/2019. Heart size is normal. No pericardial or pleural effusion. Cholecystectomy cl ips the gallbladder fossa. 8 mm left hepatic lobe cyst. There is prominent interstitial and peripancr eatic edema surrounding the head and body of the pancreas consistent with acute interstitial pancreat itis. Homogeneous pancreatic parenchymal enhancement with no regions of necrosis or hemorrhage. Chron ic dilation of the more upstream main pancreatic duct at the tail of the pancreas where it measures u p to 7 mm in diameter which is likely sequela of chronic pancreatitis. No loculated peripancreatic fl uid collections to suggest abscess, pseudocyst or acute necrotic collection. Portal, splenic and supe rior mesenteric veins are patent. Multiple splenic calcifications consistent with old granulomatous d isease. Bilateral adrenal glands are normal. Bilateral low-attenuation renal cysts the largest on the left measuring 2.4 cm. Bowels including the appendix are normal. Bladder is normal. Moderate prostat omegaly measuring 5.1 x 5.0 cm. No free intraperitoneal gas or fluid. No pathologically enlarged abdo johny or pelvic lymphadenopathy. Mild thoracolumbar spondylosis with chronic mild likely physiologic anterior wedging at T11-L1. IMPRESSION: 1. Uncomplicated likely acute on chronic interstitial pancreatitis. Reviewed, dictated and finalized at location [facility]
[2022-01-04 21:38] VITALS: BP 155/92; PULSE 67; RESP 20; TEMP 36.4; O2SAT 99
--- NOTE | 2022-01-04 21:40 | ED.ABDPAIN ---
HPI - Abdominal Pain General Chief Complaint: Abdominal Pain Stated Complaint: stomach pain Time Seen by Provider: 01/04/22 21:38 Source: patient Mode of arrival: ambulatory History of Present Illness HPI narrative: 71-year-old male with a history of benign prostatic hypertrophy, small-bowel obstruction, recurrent pancreatitis status post cholecystectomy presents to the ER after eating pizza 1 hour ago with -- epigastric pain radiating to the back. -- Nausea without any vomiting or diarrhea. The patient has had multiple prior episodes of pancreatitis with similar pain. MD elicited complaint: abdominal pain Pertinent past history: other ( Recurrent pancreatitis) Onset (ago): minute(s) ( started 40 minutes ago) Pain Consistency: constant Location: epigastric Severity: severe Quality: aching Radiation: back Exacerbating factors: nothing Relieving factors: nothing Associated symptoms: nausea Related Data Home Medications Medication Instructions Recorded Confirmed solifenacin 10 mg tablet 10 mg PO HS PRN urinary 05/21/21 01/04/22 urgency/frequency Allergies Allergy/AdvReac Type Severity Reaction Status Date / Time No Known Allergies Allergy Verified 11/17/21 10:05 Review of Systems Review of Systems: All systems reviewed & are unremarkable except as noted in HPI and below Constitutional: Constitutional: Reports as per HPI and Reports no additional constitutional complaints Eyes: Eyes: Reports as per HPI and Reports no additional eye complaints ENT: Reports system reviewed and no additional complaints, except as documented and Reports as per HPI Cardiovascular: Cardiovascular: Reports as per HPI and Reports no additional cardiovascular complaints Respiratory: Respiratory: Reports as per HPI and Reports no additional respiratory complaints Gastrointestinal: Gastrointestinal: Reports as per HPI, Reports no additional gastrointestinal complaints, Reports abdominal pain and Reports nausea Genitourinary: Genitourinary: Reports no additional male genitourinary complaints and Reports as per HPI Musculoskeletal: Musculoskeletal: Reports no additional musculoskeletal complaints and Reports as per HPI Integumentary/Breasts: Skin/Breast: Reports system reviewed and no additional complaints, except as docu and Reports as per HPI Neurologic: Reports system reviewed and no additional complaints, except as documented and Reports as per HPI Psychiatric: Psychiatric: Reports no additional psychiatric complaints and Reports as per HPI Endocrine: Endocrine: Reports no additional endocrine complaints and Reports as per HPI Hematologic/Lymphatic: Hematologic/Lymphatic: Reports no additional hematologic/lymphatic complaints and Reports as per HPI Allergic/Immunologic: Allergic/Immunologic: Reports no additional allergic/immunologic complaints and Reports as per HPI PMFSH Past Medical History Medical History Amputation finger left first digit Elevated bilirubin Epigastric pain Gallbladder sludge Left wrist fracture Nausea Normal endoscopy SBO (small bowel obstruction) Seborrheic keratoses Toe fracture, left big toe Surgical History Surgical History H/O skin graft left leg to index finger Family History Family History Father Malignant neoplasm of prostate Mother Lung cancer Stomach cancer Sibling History of female genital cancer Social History Social History Social History: The patient is and lives with his in [place], [place]. 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 His Rajni is a durable power economic historian for healthcare. Patient desires to be a full code.
--- NOTE | 2022-01-04 21:42 | ECG_ITS ---
Measurements Intervals [place] Rate: 62 P: 33 OH: 188 QRS: 16 QRSD: 119 T: 12 QT: 389 QTc: 397 Interpretive Statements SINUS RHYTHM INCOMPLETE RIGHT BUNDLE BRANCH BLOCK BASELINE ARTIFACT- I, II, III, AVR, AVL, AVF, V1-V6 BORDERLINE ECG COMPARED TO ECG 05/21/2021 00:17:26 SINUS RHYTHM NOW PRESENT Electronically Signed On 01-05-2022 6:53:46 EQUIPMENT MAINT TECH by Shayan Ramirez D.O.
[2022-01-04] MEDS: HYDROmorphone HCL INJ (*CRX) 2 MG/ML VIAL 1 MG IV PUSH (21:50)
[2022-01-04] MEDS: ONDANSETRON INJ 4 MG/2 ML VIAL IV PUSH (21:50)
[2022-01-04] MEDS: LACTATED RINGERS 1,000 ML 999 ML IV CONT ×2 (21:51→22:57)
[2022-01-04 22:06] LABS: Eosinophils Absolute Auto 0.11 K/mm3 (0.02-0.50); Eosinophils Percent Auto 1.7 % (1.0-6.0); Hematocrit 37.7 % (37.0-46.0); Hemoglobin 13.8 g/dL (12.4-15.3); Immature Granulocyte Absolute 0.01 K/mm3 (0.00-0.00); Immature Granulocyte Percent A 0.2 % (0.0-0.0); Lymphocytes Percent Auto 25.9 % (18.0-42.0); Mean Corpuscular HGB Conc 36.6 g/dL (32.0-36.0); Mean Corpuscular Hemoglobin 32.4 pg (27.0-31.0); Mean Corpuscular Volume 88.5 fL (78.0-102.0); Mean Platelet Volume 9.8 fl (8.7-11.0); Monocytes Absolute Auto 0.47 K/mm3 (0.10-0.90); Monocytes Percent Auto 7.2 % (2.0-11.0); Neutrophils Absolute Auto 4.3 K/mm3 (1.7-7.2); Platelet Count Result 203 K/mm3 (150-420); Red Blood Count 4.26 M/mm3 (4.70-6.10); Red Cell Distribution Width 12.7 % (11.6-14.4); White Blood Count 6.6 K/mm3 (4.8-10.8)
[2022-01-04 22:08] VITALS: O2SAT 95
[2022-01-04 22:15] VITALS: O2SAT 97
[2022-01-04 22:30] LABS: Prothrombin Time 10.8 Seconds (9.50-12.10)
[2022-01-04 22:36] LABS: Appearance Urine Clear (Clear); Bilirubin Urine Negative (Negative); Blood Urine Negative (Negative); Glucose Urine UA Negative (Negative); Ketones Urine Negative (Negative); Leukocyte Esterase Ur 1+ LEU/UL (Negative); Nitrate Urine Negative (Negative); Protein Urine Negative (Negative); Urobilinogen Urine 0.2 mg/dL (0.2-1.0)
[2022-01-04 22:36] LABS: Lactic Acid Reflex 1.3 mmol/L (0.4-2.0)
[2022-01-04 22:41] LABS: Alanine Aminotransferase 31 U/L (16-63); Alkaline Phosphatase 50 U/L (46-116); Anion Gap 9 mmol/L (8-16); Aspartate Amino Transferase 23 U/L (15-37); Bilirubin Direct 0.3 mg/dL (0-0.2); Bilirubin,Total 1.4 mg/dL (0.00-1.00); Blood Urea Nitrogen 14 mg/dL (7-18); Calcium 9.3 mg/dL (8.5-10.1); Carbon Dioxide 25 mmol/L (21-32); Chloride 106 mmol/L (98-108); Estimated CRCL calculation 57 ml/min; Estimated Glomerular Filt Rate > 60; Glucose 133 mg/dL (70-99); Osmolality Calculated 292 mOsm/kg (285-295); Potassium 3.6 mmol/L (3.5-5.1); Sodium 140 mmol/L (136-145); Total Protein 6.7 g/dL (6.4-8.2); Troponin I 5.7 ng/L (0.00-60.4)
[2022-01-04 22:44] LABS: Add Urine Microscopic? YES; Bacteria Urine None seen /hpf; Color Urine Light Yellow (Yellow); RBC Urine 0-2 /hpf (0-2); Squamous Epithelial Cell Urine None seen /hpf (Few); WBC Urine 0-3 /hpf (0-3)
[2022-01-04 22:46] LABS: Lipase > 1500 U/L (73-393)
[2022-01-04 22:59] VITALS: O2SAT 97
[2022-01-04 23:00] VITALS: BP 125/77; PULSE 56; RESP 18; O2SAT 97
[2022-01-04 23:58] LABS: Triglycerides 86 mg/dL (0-150)
--- NOTE | 2022-01-05 00:30 | PC.NURSE ---
ERP spoke c pt. about test results and POC for admission. Call placed to [facility] and acceptance for admit.
[2022-01-05] MEDS: HYDROmorphone HCL INJ (*CRX) 2 MG/ML VIAL 1 MG IV PUSH (00:34)
[2022-01-05] MEDS: PANTOPRAZOLE SODIUM IV 40 MG VIAL IV PUSH ×2 (00:34→09:02)
[2022-01-05] MEDS: LACTATED RINGERS 1,000 ML 125 ML IV CONT ×3 (00:42→17:00)
[2022-01-05 00:46] VITALS: BP 133/88; PULSE 67; RESP 18; TEMP 36.4; O2SAT 95
[2022-01-05 01:30] VITALS: BMI 28.5
--- NOTE | 2022-01-05 01:36 | ADMGEN ---
This patient, Jeramy Blood, was admitted to 2nd Floor Room 203-1. Patient oriented to hospital policies and general routines including ID bracelet, bed and alarms, visiting hours, pain management, procedures, bathroom and other care routines, personal items, smoking policy, room service/diet, and visiting hours. Information on how to activate the Rapid Response Team has been discussed. Patient are encouraged to report perceived risks to care and to ask questions if they do not understand what they are told or what they should do.
[2022-01-05] MEDS: ONDANSETRON INJ 4 MG/2 ML VIAL IV PUSH (01:54)
[2022-01-05 01:58] VITALS: PULSE 67; RESP 18; O2SAT 96
[2022-01-05 04:00] VITALS: BP 134/94; PULSE 51; RESP 16; TEMP 35.9; O2SAT 96
[2022-01-05 07:39] LABS: Hematocrit 34.5 % (37.0-46.0); Hemoglobin 12.4 g/dL (12.4-15.3); Mean Corpuscular HGB Conc 35.9 g/dL (32.0-36.0); Mean Corpuscular Volume 88.9 fL (78.0-102.0); Platelet Count Result 180 K/mm3 (150-420); Red Blood Count 3.88 M/mm3 (4.70-6.10); Red Cell Distribution Width 13.2 % (11.6-14.4); White Blood Count 7.1 K/mm3 (4.8-10.8)
[2022-01-05 07:40] LABS: Mean Platelet Volume 9.7 fl (8.7-11.0)
[2022-01-05 07:44] VITALS: BP 98/82; PULSE 56; PULSE 61; RESP 16; TEMP 36.4; O2SAT 95
[2022-01-05 07:58] LABS: Alanine Aminotransferase 25 U/L (16-63); Albumin Level 3.6 g/dL (3.4-5.0); Alkaline Phosphatase 48 U/L (46-116); Anion Gap 5 mmol/L (8-16); Aspartate Amino Transferase 15 U/L (15-37); Bilirubin,Total 1.5 mg/dL (0.00-1.00); Blood Urea Nitrogen 14 mg/dL (7-18); Calcium 9.3 mg/dL (8.5-10.1); Carbon Dioxide 29 mmol/L (21-32); Chloride 105 mmol/L (98-108); Estimated CRCL calculation 61 ml/min; Estimated Glomerular Filt Rate > 60; Glucose 131 mg/dL (70-99); Osmolality Calculated 290 mOsm/kg (285-295); Potassium 3.9 mmol/L (3.5-5.1); Sodium 139 mmol/L (136-145); Total Protein 5.9 g/dL (6.4-8.2)
[2022-01-05] MEDS: ENOXAPARIN 40 MG/0.4 ML SYRINGE SUB-Q (09:01)
[2022-01-05] MEDS: TAMSULOSIN HCL 0.4 MG CAPSULE 0.8 MG BY MOUTH (09:02)
[2022-01-05 09:12] LABS: Lipase 7933 U/L (73-393)
[2022-01-05] MEDS: traMADol HCL (*CRX) 50 MG TABLET PO (09:40)
--- NOTE | 2022-01-05 10:40 | PM.IMHP ---
H&P: HPI History of Present Illness Date/Time: 01/05/22 10:40 Chief Complaint: Abdominal pain Narrative: does is a 71-year-old male who presented to our emergency department with complaints of abdominal pain. Patient has a past medical history of BPH, small-bowel obstruction and recurrent pancreatitis ?status post cholecystectomy. patient notes that yesterday he started to experience epigastric pain never radiated to his back with nausea. Patient notes that he normally goes [facility] him in his got in the car to go to [place] and he started to experience nausea and at that time he decided to come to [facility] emergency did. patient continues to have pain to his abdominal area more prominent in the epigastric area. Patient also notes occasional nausea. WBC 6.6, hemoglobin 13.8, hematocrit 37.7, platelets 203, sodium 140, potassium 3.6, BUN 14 creatinine 1.17, glucose 133, total bilirubin 1.4, direct bili were 0.3, AST 23, ALT 31, alkaline phosphatase 50, troponin 5.7, lipase greater than 1500 lactic acid 1.3 triglycerides 86 UA positive for leukocytes imaging indicate uncomplicated likely acute or chronic pancreatitis. The patient denies SOB, CP, palpitation, extremity numbness, lightheadedness, dizziness, constipation, diarrhea, chills, or fever. Review of Systems Review of Systems: A 14 organ system Review of Systems was performed and pertinent positives included in the HPI, otherwise remaining ROS is negative. [facility] Past Medical History Medical History Amputation finger left first digit Elevated bilirubin Epigastric pain Gallbladder sludge Left wrist fracture Nausea Normal endoscopy SBO (small bowel obstruction) Seborrheic keratoses Toe fracture, left big toe Surgical History Surgical History H/O skin graft left leg to index finger Family History Family History Father Malignant neoplasm of prostate Mother Lung cancer Stomach cancer Sibling History of female genital cancer Social History Social History Social History: The patient is and lives with his in [place], [place]. 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 His Rajni is a durable power patent attorney for healthcare. Patient desires to be a full code. He smoked 3 packs of cigarettes a day for 3 years and quit 1978. He denies drinking any alcohol. No drug use. Smoking packs per day: 1.5 Smoking cigarettes per day: 30.0 Years smoked: 6 Smoking pack-years: 9.00 Smoking status: Never smoker Tobacco type: cigarettes Second hand tobacco smoke exposure: No Additional smoking assessment comments: Quite 40 years ago Alcohol intake: never Substance use: never Has the Lack of Transportation Kept You From Medical Appointments or From Getting Medications?: No Within the Past 12 Months, Were You Worried Whether Your Food Would Run Out Before You Got Money to Buy More?: Never True What is Your Housing Situation Today?: I Have Housing Are You Worried That in the Next 2 Months, You May Not Have Your Own Housing to Live In?: No Do You Have Trouble Paying Your Heating Or Electricity Bill?: No Do You Have Trouble Paying For Medicines?: No Are You Currently Unemployed and Looking for Work?: No Highest Level of Education Completed: High School Diploma/GED Do You Have Trouble With Childcare or the Care of a Family Member?: No Gender identity (if verbalized by the patient): Male Spiritual care concerns: No Agree to blood products: Yes Meds Home Medications and Allergies Home Medications Medication Instructions Recorded Confirmed Type solifenacin 10 mg tablet 10 mg PO HS PRN u
[2022-01-05] MEDS: HYDROmorphone HCL INJ (*CRX) 2 MG/ML VIAL 0.5 MG IV PUSH (11:58)
[2022-01-05 16:00] VITALS: BP 112/67; PULSE 51; RESP 16; TEMP 36.4; O2SAT 97
[2022-01-06] VITALS: BP 116/72; PULSE 56; RESP 18; TEMP 36.1; O2SAT 95
[2022-01-06] MEDS: LACTATED RINGERS 1,000 ML 125 ML IV CONT ×2 (00:50→09:30)
[2022-01-06 08:00] VITALS: BP 131/70; PULSE 57; RESP 16; TEMP 36.6; O2SAT 96
[2022-01-06 08:46] LABS: Eosinophils Absolute Auto 0.13 K/mm3 (0.02-0.50); Eosinophils Percent Auto 2.7 % (1.0-6.0); Hematocrit 35.2 % (37.0-46.0); Hemoglobin 12.4 g/dL (12.4-15.3); Immature Granulocyte Absolute 0.01 K/mm3 (0.00-0.00); Immature Granulocyte Percent A 0.2 % (0.0-0.0); Lymphocytes Absolute Auto 0.93 K/mm3 (1.10-4.50); Lymphocytes Percent Auto 19.3 % (18.0-42.0); Mean Corpuscular HGB Conc 35.2 g/dL (32.0-36.0); Mean Corpuscular Hemoglobin 31.8 pg (27.0-31.0); Mean Corpuscular Volume 90.3 fL (78.0-102.0); Mean Platelet Volume 9.7 fl (8.7-11.0); Monocytes Absolute Auto 0.32 K/mm3 (0.10-0.90); Monocytes Percent Auto 6.6 % (2.0-11.0); Neutrophils Absolute Auto 3.4 K/mm3 (1.7-7.2); Neutrophils Percent Auto 71.2 % (50.0-70.0); Platelet Count Result 156 K/mm3 (150-420); Red Cell Distribution Width 12.6 % (11.6-14.4); White Blood Count 4.8 K/mm3 (4.8-10.8)
[2022-01-06] MEDS: TAMSULOSIN HCL 0.4 MG CAPSULE 0.8 MG BY MOUTH (08:47)
[2022-01-06] MEDS: ENOXAPARIN 40 MG/0.4 ML SYRINGE SUB-Q (08:47)
[2022-01-06] MEDS: PANTOPRAZOLE SODIUM IV 40 MG VIAL IV PUSH (08:47)
[2022-01-06 09:13] LABS: Alanine Aminotransferase 24 U/L (16-63); Albumin Level 3.4 g/dL (3.4-5.0); Alkaline Phosphatase 47 U/L (46-116); Anion Gap 4 mmol/L (8-16); Aspartate Amino Transferase 19 U/L (15-37); Blood Urea Nitrogen 16 mg/dL (7-18); Calcium 8.8 mg/dL (8.5-10.1); Carbon Dioxide 31 mmol/L (21-32); Chloride 106 mmol/L (98-108); Estimated CRCL calculation 65 ml/min; Estimated Glomerular Filt Rate > 60; Glucose 84 mg/dL (70-99); Lipase 789 U/L (73-393); Osmolality Calculated 292 mOsm/kg (285-295); Potassium 3.7 mmol/L (3.5-5.1); Sodium 141 mmol/L (136-145); Total Protein 5.9 g/dL (6.4-8.2)
--- NOTE | 2022-01-06 10:45 | WPDPN ---
Progress Note: A&P Assessment and Plan (1) Acute recurrent pancreatitis: Code(s): K85.90 - Acute pancreatitis without necrosis or infection, unspecified Status: Acute Assessment and Plan: lipase >1500>7933>700 if patient does not improve will contact patient's GI doctor for possible transfer to [facility] after, Dr. Moreno [phone] continue pain control repeat lipase in the a.m. continue NPO with IV fluids lipase in the am Lipase has improved 700 (2) Nausea: Code(s): R11.0 - Nausea Status: Acute Assessment and Plan: No nausea noted (3) Abnormal finding on urinalysis: Code(s): R82.90 - Unspecified abnormal findings in urine Status: Acute Assessment and Plan: patient with leukocytes in urine patient with leukocytes in urine UA culture pending started Rocephin day 1 (4) Elevated bilirubin: Code(s): R17 - Unspecified jaundice Status: Acute Assessment and Plan: chronic tbili 1.5 total bili below baseline will continue to monitor (5) Abdominal pain: Code(s): R10.9 - Unspecified abdominal pain Status: Acute Assessment and Plan: secondary to pancreatitis resolving Subjective Date/time seen: 01/06/22 10:45 Interval history: Patient is not having any pain and no naseua and he is feeling a lot better. We are awaiting a lipase level and will attempt clear liquids to see how patient is doing. If able to tolerate clears for lunch may advanced as tolerated and possible plan for discharge in the morning. Exam Narrative: GENERAL: This is a well-nourished, well-developed patient, in no apparent distress. HEAD: normocephalic, atraumatic. EYES: PERRL. Sclera clear/white. Vision is grossly intact. EARS: Hearing grossly intact. NOSE: External nose normal with no obvious nasal discharge, nares without redness, no rhinorrhea. CARDIOVASCULAR: Regular rate and rhythm RESPIRATORY: Clear to auscultation. Breath sounds equal bilaterally. No wheezes, rales, or rhonchi. GASTROINTESTINAL: Abdomen soft, no tenderness in abdominal noted today No hepato-splenomegaly, or palpable masses. without guarding. SKIN: warm, intact with no suspicious lesions or rash, good texture and turgor. NEURO: awake, alert, and oriented to person, place and time. There were no obvious focal neurologic abnormalities. EXTREMITIES: Normal range of motion. No edema. No calf tenderness. Objective Data Vital Signs Vital Signs: Vital Signs - 24 hr 01/05/22 16:00 01/06/22 00:00 01/06/22 08:00 Temperature 97.6 F 96.9 F L 97.8 F Pulse Rate 51 L 56 L 57 L Respiratory Rate 16 18 16 Blood Pressure 112/67 116/72 131/70 Pulse Oximetry 97 95 96 Oxygen Delivery Room Air Room Air Room Air Intake/Output Intake/Output: Intake & Output 01/03/22 01/04/22 01/05/22 01/06/22 23:59 23:59 23:59 23:59 Intake Total 1999 2080 1979.167 Output Total 900 1600 Balance 1999 1180 379.167 Meds/Results Medications: Active Medications Generic Name Dose Route Start Last Admin Trade Name Freq PRN Reason Stop Dose Admin Acetaminophen 650 mg 01/05/22 00:27 Acetaminophen 325 Mg Tablet PO Q4H PRN Mild Pain (1-3) or Fever Enoxaparin Sodium 40 mg 01/05/22 09:00 01/06/22 08:47 Enoxaparin 40 Mg/0.4 Ml Syringe SUB-Q 40 mg DAILY DOMINGUEZ Administration Hydromorphone HCl 0.5 mg 01/05/22 00:32 01/05/22 11:58 Hydromorphone Hcl Inj (*Crx) 2 Mg/Ml Vial IV PUSH 0.5 mg Q3H PRN Administration Pain Rated 7-10 Lactated Ringer's 1,000 mls @ 125 mls/hr 01/05/22 00:30 01/06/22 09:22 Lr - Lactated Ringers Iv IV CONT Infused .Q8H DOMINGUEZ Infusion Ceftriaxone Sodium/Dextrose 1 gm in 50 mls @ 100 mls/hr 01/05/22 12:00 01/05/22 12:30 Rocephin 1 Gm/D5w 50 Ml IVPB Infused Q24H DOMINGUEZ Infusion Lorazepam 0.5 mg 01/05/22 11:00 Lorazepam Inj (*Crx) 2 Mg/Ml Vial IV PUSH Q6H PRN Anxiety Ondans
[2022-01-06 15:56] VITALS: BP 129/79; PULSE 61; RESP 16; TEMP 36.6; O2SAT 95
--- NOTE | 2022-01-06 15:59 | PC.NURSE ---
Patient lying in bed watching TV. Alert and oriented, able to answer questions appropriately. Denies pain, states he feels great. Bowel sounds active, lungs CTA.
--- NOTE | 2022-01-06 18:07 | PC.NURSE ---
Patient resting in bed. Able to eat supper, denies abd pain and nausea. Belongings and call light in reach.
[2022-01-07] VITALS: BP 116/67; PULSE 55; RESP 20; TEMP 36.3; O2SAT 95
[2022-01-07 07:50] VITALS: BP 132/98; PULSE 67; RESP 18; TEMP 36.1; O2SAT 97
[2022-01-07 08:41] LABS: Hematocrit 37.5 % (37.0-46.0); Hemoglobin 13.4 g/dL (12.4-15.3); Mean Corpuscular HGB Conc 35.7 g/dL (32.0-36.0); Mean Corpuscular Volume 89.5 fL (78.0-102.0); Mean Platelet Volume 9.8 fl (8.7-11.0); Platelet Count Result 171 K/mm3 (150-420); Red Blood Count 4.19 M/mm3 (4.70-6.10); Red Cell Distribution Width 12.4 % (11.6-14.4); White Blood Count 4.3 K/mm3 (4.8-10.8)
[2022-01-07 08:52] LABS: Anion Gap 6 mmol/L (8-16); Blood Urea Nitrogen 17 mg/dL (7-18); Calcium 9.1 mg/dL (8.5-10.1); Carbon Dioxide 30 mmol/L (21-32); Chloride 105 mmol/L (98-108); Estimated CRCL calculation 65 ml/min; Estimated Glomerular Filt Rate > 60; Glucose 125 mg/dL (70-99); Lipase 505 U/L (73-393); Osmolality Calculated 294 mOsm/kg (285-295); Potassium 3.9 mmol/L (3.5-5.1); Sodium 141 mmol/L (136-145)
[2022-01-07] MEDS: levoFLOXacin 500 MG TABLET PO (09:12)
[2022-01-07] MEDS: TAMSULOSIN HCL 0.4 MG CAPSULE 0.8 MG BY MOUTH (09:12)
--- NOTE | 2022-01-07 09:46 | PM.DS ---
DS: Admitting Diagnosis Discharge Date 01/07/2022 Admitting Diagnosis Pancreatitis DS: Discharge Diagnosis Discharge Diagnosis (1) Acute recurrent pancreatitis: Code(s): K85.90 - Acute pancreatitis without necrosis or infection, unspecified Status: Acute Assessment and Plan: lipase >1500>7933>700 if patient does not improve will contact patient's GI doctor for possible transfer to [facility] after, Dr. Moreno [phone] continue pain control repeat lipase in the a.m. continue NPO with IV fluids lipase in the am Lipase has improved 700 (2) Nausea: Code(s): R11.0 - Nausea Status: Acute Assessment and Plan: No nausea noted (3) Abnormal finding on urinalysis: Code(s): R82.90 - Unspecified abnormal findings in urine Status: Acute Assessment and Plan: patient with leukocytes in urine patient with leukocytes in urine UA culture pending started Rocephin day 1 (4) Elevated bilirubin: Code(s): R17 - Unspecified jaundice Status: Acute Assessment and Plan: chronic tbili 1.5 total bili below baseline will continue to monitor (5) Abdominal pain: Code(s): R10.9 - Unspecified abdominal pain Status: Acute Assessment and Plan: secondary to pancreatitis resolving DS: Summary Hospital Course Reason for hospitalization: PANCREATITIS Hospital Course: THIS IS A 71-YEAR-OLD MALE THAT PRESENTED TO THE EMERGENCY ROOM WITH SEVERE ABDOMINAL PAIN. PATIENT HAD A CT SCAN THAT SHOWED ACUTE ON CHRONIC PANCREATITIS. ACCORDING TO PATIENT HE STATES THAT HE ATE SOME PIZZA AND THEN STARTED HAVING SEVERE ABDOMINAL PAIN THIS IS NOT THE PATIENT'S 1ST EPISODE OF A PANCREATIC FLARE UP. PATIENT REMAINED NPO RECEIVED PAIN MEDICINE IV FLUIDS AND SOME ANTIBIOTICS. PATIENT HAS CONTINUED TO IMPROVE IS CONTINUALLY ABLE TO INJECT ABDOMINAL PAIN HAS SINCE RESOLVED NO NAUSEA VOMITING AND/OR DIARRHEA PATIENT HAS REMAINED AFEBRILE. PATIENT'S LABS ARE WITHIN NORMAL LIMITS IS STABLE FOR HIM TO BE DISCHARGED HE WILL FOLLOW-UP WITH HIS PRIMARY CARE DOCTOR DR. PIERCE WHO CAME TO VISIT WHILE HE WAS INPATIENT. PATIENT HAS NO QUESTIONS OR CONCERNS UPON DISCHARGE. ANY ANTICIPATORY KNEES HAVE BEEN GIVEN. Time Spent with Patient Time attestation: Total time spent providing and/or coordinating discharge services: Exam Narrative: GENERAL: This is a well-nourished, well-developed patient, in no apparent distress. HEAD: normocephalic, atraumatic. EYES: PERRL. Sclera clear/white. Vision is grossly intact. EARS: Hearing grossly intact. NOSE: External nose normal with no obvious nasal discharge, nares without redness, no rhinorrhea. CARDIOVASCULAR: Regular rate and rhythm RESPIRATORY: Clear to auscultation. Breath sounds equal bilaterally. No wheezes, rales, or rhonchi. GASTROINTESTINAL: Abdomen soft, no tenderness in abdominal noted today SKIN: warm, intact with no suspicious lesions or rash, good texture and turgor. NEURO: awake, alert, and oriented to person, place and time. There were no obvious focal neurologic abnormalities. EXTREMITIES: Normal range of motion. No edema. No calf tenderness. DS: Data Data Completed and Pending Labs on day of discharge: Labs from last 24 hours 01/07/22 01/07/22 08:26 08:26 WBC 4.3 L RBC 4.19 L Hgb 13.4 Hct 37.5 MCV 89.5 MCH 32.0 H MCHC 35.7 RDW 12.4 Plt Count 171 MPV 9.8 Sodium 141 Potassium 3.9 Chloride 105 Carbon Dioxide 30 Anion Gap 6 L BUN 17 Creatinine 1.03 Estim Creat Clear Calc 65 Estimated GFR > 60 Glucose 125 H Calculated Osmolality 294 Calcium 9.1 Lipase 505 H Discharge Plan Discharge Attending physician on discharge: Jeremy Flores Consulting providers: Shukri Izaguirre ; Giovanna Garay ; Shayan Ramirez ; Chidi Kim Discharging Clinician: Giovanna Garay Anticipated Discharge Date/Time: 01/07
--- NOTE | 2022-01-07 10:30 | PC.NURSE ---
Patient discharging home. All discharge instructions and education reviewed with patient. Patient states understanding, denies any questions at discharge. IV site discontinues last night per hourly shift RN. All belongings gathered together and sent home with patient. Patient left floor ambulatory, accompanied by this nurse to front door. Left via private vehicle with .
--- NOTE | 2022-01-11 09:37 | PC.NURSE ---
Pt states he received and understood his discharge instructions. Pt also states they took excellent car of me .
== END 2022-01-07 10:30 | disposition home or self-care (01) | DRG 440 ==
LOC: CHSED 01-05 00:48 → CHS2ND 01-05 01:01
PROVIDERS: Nurse Practitioner; Nurse Practitioner Family; Admitting Provider Internal Medicine; Emergency Provider Internal Medicine Critical Care Medicine; PCP Family Medicine; Visit Provider Internal Medicine
DX: K85.90 Acute pancreatitis without necrosis or infection, unspecified (principal); E80.6 Other disorders of bilirubin metabolism; N40.0 Benign prostatic hyperplasia without lower urinary tract symptoms; R82.90 Unspecified abnormal findings in urine; Z90.49 Acquired absence of other specified parts of digestive tract; Z89.022 Acquired absence of left finger(s); Z87.891 Personal history of nicotine dependence
CPT/HCPCS: 36415; 74177; 80048; 80053; 80076; 81001; 83605; 83690; 84478; 84484; 85025; 85027; 85610; 87086; 93005; 96361; 96374; 96375; 99285; A9270; C9113; J0696; J1170; J1650; J2405; J7120; Q9967

== ENCOUNTER 2022-04-02 19:44 | Inpatient (IN) | payer MEDICARE, SELFPAY ==
[2022-04-02] VITALS (14 sets, daily range): BP systolic 98–157; BP diastolic 59–85; PULSE 51–63; RESP 18–20; TEMP 36.1–36.6; O2SAT 92–100; BMI 25.4
--- NOTE | ~2022-04-02 | CT_ITS ---
EXAMINATION: CT abdomen pelvis w con DATE: 04/02/2022 20:44 INDICATION: Epigastric abdominal pain. TECHNIQUE: Computed tomography (CT) of the abdomen and pelvis was performed with 100 mL Omnipaque 350 intravenous contrast. Automated exposure control and iterative reconstruction technique were employe d. The dose-length product was 1012.99 mGy-cm. COMPARISON: CT abdomen and pelvis 01/04/2022, 05/20/2021 FINDINGS: The visualized portions of the lung bases demonstrate mild atelectasis. There is mild scarr ing in paraspinal right lower lobe. A calcified left lung nodule is consistent with old granulomatous disease. There is a chronic 6 mm nodule in lingula, likely benign. No pleural effusion. The heart si ze is normal. No pericardial effusion. There is an 8 mm cyst in the liver. There are changes of kaylie cystectomy. Calcifications in the spleen are consistent with old granulomatous disease. There is fat stranding and fluid around the pancreas. The main pancreatic duct is dilated. The adrenal glands are normal. There is cortical thinning of the kidneys. There is a 2.7 cm cyst in left kidney. The prostat e is mildly enlarged. There is diverticulosis of the colon without evidence of diverticulitis. There are no dilated loops of bowel. The appendix is not visualized normal. There are no pathologically enl arged lymph nodes. There is no free intraperitoneal fluid. There is prominent fat in left inguinal ca nal that may be a hernia. There is mild thoracolumbar spondylosis. IMPRESSION: 1. Acute on chronic interstitial pancreatitis. Reviewed, dictated and finalized at location A. S REP
--- NOTE | 2022-04-02 19:53 | ED.ABDPAIN ---
HPI - Abdominal Pain General Chief Complaint: Abdominal Pain Stated Complaint: Abdominal Pain Source: patient Mode of arrival: ambulatory Limitations: no limitations History of Present Illness HPI narrative: 72 year old male presents to the Emergency Department complaining of upper abdominal pain and pancreatitis. Patient has a history of recurrent pancreatitis. Last episode December 2021 requiring hospitalization. States sudden onset of pain approximately an hour ago. Denies vomiting, diarrhea, constipation. Denies fever, chest pain, shortness of breath. Pain similar to prior episodes. MD elicited complaint: abdominal pain Pertinent past history: other (recurrent pancreatitis) Onset (ago): hour(s) (1) Pain Consistency: constant Location: epigastric Severity: moderate Quality: aching Radiation: back Exacerbating factors: nothing Relieving factors: nothing Context: confirms history of similar episodes Associated symptoms: denies other symptoms Related Data Home Medications Medication Instructions Recorded Confirmed Pancrelipase 04/02/22 dicyclomine 10 mg capsule See Rx Instructions .Route .COMPLEX 04/02/22 04/02/22 Allergies Allergy/AdvReac Type Severity Reaction Status Date / Time No Known Allergies Allergy Verified 02/02/22 13:08 Review of Systems Review of Systems: All systems reviewed & are unremarkable except as noted in HPI and below Constitutional: Constitutional: Reports as per HPI, Denies chills and Denies fever(s) Eyes: Eyes: Reports as per HPI and Reports no additional eye complaints ENT: Reports system reviewed and no additional complaints, except as documented Cardiovascular: Cardiovascular: Reports as per HPI and Denies chest pain Respiratory: Respiratory: Reports as per HPI, Denies chest congestion, Denies cough and Denies dyspnea Gastrointestinal: Gastrointestinal: Reports as per HPI, Reports abdominal pain, Denies diarrhea, Denies nausea and Denies vomiting Genitourinary: Genitourinary: Reports no additional male genitourinary complaints and Denies dysuria Musculoskeletal: Musculoskeletal: Reports no additional musculoskeletal complaints and Reports back pain Integumentary/Breasts: Skin/Breast: Reports system reviewed and no additional complaints, except as docu Neurologic: Reports system reviewed and no additional complaints, except as documented Psychiatric: Psychiatric: Reports no additional psychiatric complaints Endocrine: Endocrine: Reports no additional endocrine complaints Hematologic/Lymphatic: Hematologic/Lymphatic: Reports no additional hematologic/lymphatic complaints Allergic/Immunologic: Allergic/Immunologic: Reports no additional allergic/immunologic complaints [facility] Past Medical History Medical History Amputation finger left first digit Elevated bilirubin Epigastric pain Gallbladder sludge Left wrist fracture Nausea Normal endoscopy SBO (small bowel obstruction) Seborrheic keratoses Toe fracture, left big toe Surgical History Surgical History H/O skin graft left leg to index finger Family History Family History Father Malignant neoplasm of prostate Mother Lung cancer Stomach cancer Sibling History of female genital cancer Social History Social History Social History: The patient is and lives with his in [place], [place]. 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 His Rajni is a durable power professor of poultry science for healthcare. Patient desires to be a full code. He smoked 3 packs of cigarettes a day for 3 years and quit 1977. He denies drinking any alcohol. No drug use. Smoking packs per day: 1.5 Smoking
[2022-04-02] MEDS: ONDANSETRON INJ 4 MG/2 ML VIAL IV PUSH (20:06)
[2022-04-02] MEDS: SODIUM CHLORIDE 0.9% IV 1,000 ML 150 ML IV CONT (20:07)
[2022-04-02] MEDS: HYDROmorphone HCL INJ (*CRX) 2 MG/ML VIAL 1 MG IV PUSH ×2 (20:07→23:09)
[2022-04-02 20:08] LABS: Basophils Absolute Auto 0.01 K/mm3 (0.00-0.10); Basophils Percent Auto 0.2 % (0.0-1.0); Eosinophils Absolute Auto 0.12 K/mm3 (0.02-0.50); Hemoglobin 12.6 g/dL (12.4-15.3); Immature Granulocyte Absolute 0.02 K/mm3 (0.00-0.00); Immature Granulocyte Percent A 0.3 % (0.0-0.0); Lymphocytes Percent Auto 24.4 % (18.0-42.0); Mean Corpuscular Hemoglobin 31.3 pg (27.0-31.0); Mean Corpuscular Volume 89.6 fL (78.0-102.0); Mean Platelet Volume 10.1 fl (8.7-11.0); Monocytes Absolute Auto 0.44 K/mm3 (0.10-0.90); Monocytes Percent Auto 7.2 % (2.0-11.0); Neutrophils Absolute Auto 4.1 K/mm3 (1.7-7.2); Neutrophils Percent Auto 65.9 % (50.0-70.0); Platelet Count Result 196 K/mm3 (150-420); Red Blood Count 4.02 M/mm3 (4.70-6.10); Red Cell Distribution Width 12.7 % (11.6-14.4); White Blood Count 6.1 K/mm3 (4.8-10.8)
[2022-04-02 20:25] LABS: Alanine Aminotransferase 19 U/L (16-63); Albumin Level 4.2 g/dL (3.4-5.0); Alkaline Phosphatase 59 U/L (46-116); Anion Gap 7 mmol/L (8-16); Aspartate Amino Transferase 20 U/L (15-37); Bilirubin,Total 1.6 mg/dL (0.00-1.00); Blood Urea Nitrogen 15 mg/dL (7-18); Carbon Dioxide 29 mmol/L (21-32); Chloride 106 mmol/L (98-108); Estimated CRCL calculation 60 ml/min; Estimated Glomerular Filt Rate > 60; Glucose 126 mg/dL (70-99); Osmolality Calculated 296 mOsm/kg (285-295); Potassium 3.7 mmol/L (3.5-5.1); Sodium 142 mmol/L (136-145); Total Protein 6.9 g/dL (6.4-8.2)
[2022-04-02 20:29] LABS: Amylase > 650 U/L (25-115); Lipase > 1500 U/L (16-77)
[2022-04-02 21:10] LABS: Add Urine Microscopic? YES; Appearance Urine Clear (Clear); Bilirubin Urine Negative (Negative); Blood Urine Negative (Negative); Color Urine Light Yellow (Yellow); Glucose Urine UA Negative (Negative); Ketones Urine Negative (Negative); Leukocyte Esterase Ur Trace LEU/UL (Negative); Nitrate Urine Positive (Negative); Protein Urine Negative (Negative); Specific Grav Ur <= 1.005 (1.010-1.020); Urobilinogen Urine 0.2 mg/dL (0.2-1.0); pH Urine 6.5 (5.0-8.0)
[2022-04-02 21:16] LABS: Bacteria Urine None seen /hpf; RBC Urine 0-2 /hpf (0-2); Squamous Epithelial Cell Urine None seen /hpf (Few); WBC Urine 0-3 /hpf (0-3)
[2022-04-02 21:43] LABS: Influenza A QL RT-PCR Negative (Negative); Influenza B QL RT-PCR Negative (Negative); SARS-CoV-2 RNA PCR Negative (Negative)
[2022-04-02 21:48] LABS: RSV RNA, RT-PCR Negative (Negative)
--- NOTE | 2022-04-02 23:02 | PC.NURSE ---
Patient admitted to room 205, is alert and oriented to surroundings.
[2022-04-03] MEDS: SODIUM CHLORIDE 0.9% IV 1,000 ML 100 ML IV CONT ×2 (02:54→11:24)
[2022-04-03 04:00] VITALS: BP 111/54; PULSE 48; RESP 18; TEMP 36.3; O2SAT 96
[2022-04-03 05:13] LABS: Eosinophils Absolute Auto 0.13 K/mm3 (0.02-0.50); Eosinophils Percent Auto 2.8 % (1.0-6.0); Hematocrit 32.2 % (37.0-46.0); Hemoglobin 11.3 g/dL (12.4-15.3); Immature Granulocyte Absolute 0.01 K/mm3 (0.00-0.00); Immature Granulocyte Percent A 0.2 % (0.0-0.0); Lymphocytes Absolute Auto 1.36 K/mm3 (1.10-4.50); Lymphocytes Percent Auto 29.6 % (18.0-42.0); Mean Corpuscular HGB Conc 35.1 g/dL (32.0-36.0); Mean Corpuscular Hemoglobin 31.7 pg (27.0-31.0); Mean Corpuscular Volume 90.4 fL (78.0-102.0); Mean Platelet Volume 9.7 fl (8.7-11.0); Monocytes Absolute Auto 0.36 K/mm3 (0.10-0.90); Monocytes Percent Auto 7.8 % (2.0-11.0); Neutrophils Absolute Auto 2.7 K/mm3 (1.7-7.2); Neutrophils Percent Auto 59.6 % (50.0-70.0); Platelet Count Result 158 K/mm3 (150-420); Red Blood Count 3.56 M/mm3 (4.70-6.10); Red Cell Distribution Width 12.8 % (11.6-14.4); White Blood Count 4.6 K/mm3 (4.8-10.8)
[2022-04-03 05:31] LABS: Amylase > 650 U/L (25-115); Anion Gap 3 mmol/L (8-16); Blood Urea Nitrogen 14 mg/dL (7-18); Calcium 8.4 mg/dL (8.5-10.1); Carbon Dioxide 31 mmol/L (21-32); Chloride 109 mmol/L (98-108); Estimated CRCL calculation 64 ml/min; Estimated Glomerular Filt Rate > 60; Glucose 103 mg/dL (70-99); Lipase > 1500 U/L (16-77); Osmolality Calculated 296 mOsm/kg (285-295); Potassium 4.1 mmol/L (3.5-5.1); Sodium 143 mmol/L (136-145)
[2022-04-03 05:48] VITALS: BP 111/54; PULSE 48; RESP 18; TEMP 36.3; O2SAT 96
[2022-04-03 08:00] VITALS: BP 117/57; PULSE 52; RESP 16; TEMP 36.4; O2SAT 97
[2022-04-03] MEDS: TAMSULOSIN HCL 0.4 MG CAPSULE BY MOUTH (08:40)
--- NOTE | 2022-04-03 11:51 | PM.IMHP ---
H&P: HPI History of Present Illness Date/Time: 04/03/22929 Chief Complaint: UPPER ABDOMINAL PAIN Narrative: PATIENT IS A 72-YEAR-OLD MALE THAT PRESENTED TO THE EMERGENCY DEPARTMENT ON 04/02/2022 WITH COMPLAINTS OF UPPER ABDOMINAL PAIN LIKELY SECONDARY TO HIS KNOWN RECURRENT ACUTE PANCREATITIS THAT STARTED APPROXIMATELY 1 YEAR AGO PER PATIENT. STATES HE HAS HAD 7 EPISODES OF PANCREATITIS SINCE THAT TIME. PATIENT STATES HIS SYMPTOMS STARTED APPROXIMATELY 30 MINUTES AFTER EATING DINNER SALAD WITH CUCUMBERS AND TOMATOES AND SALMON PATTIES. STATES HE HAS BEEN FOLLOWING A STRICT LOW FAT DIET TO HELP WITH SYMPTOMS. PT STATES HE HAS A GI SPECIALIST THAT HAS BEEN FOLLOWING HIM FOR THIS COMPLAINT. HAS HAD AN EGD, ERCP, CHOLECYSTECTOMY, AND A STENT IN THE COMMON BILE DUCT IN THE PAST. STATES HE SAW DR. BELLA NAVA) AT [facility] LAST WEEK AND WAS GIVEN A TRIAL OF PANCRELIPASE TO START. DENIES ANY C/O NAUSEA OR VOMITING WITH THIS EPISODE, JUST UPPER ABDOMINAL PAIN. DENIES ANY ALCOHOL OR STREET DRUG USE. Review of Systems Review of Systems: PATIENT STATES HE IS FEELING MUCH BETTER THAN WHEN HE CAME IN Constitutional: Constitutional: Reports no additional constitutional complaints Eyes: Eyes: Reports no additional eye complaints ENT: Reports system reviewed and no additional complaints, except as documented Cardiovascular: Cardiovascular: Reports no additional cardiovascular complaints Comments: PATIENT DENIES ANY COMPLAINTS OF CHEST PAIN, SHORTNESS A BREATH, OR EDEMA Respiratory: Comments: PATIENT DENIES ANY COMPLAINTS OF SHORTNESS OF BREATH, COUGH, ORTHOPNEA, DYSPNEA ON EXERTION Gastrointestinal: Gastrointestinal: Reports as per HPI and Reports abdominal pain Comments: PATIENT DENIES ANY COMPLAINTS OF NAUSEA, VOMITING, CONSTIPATION, DIARRHEA Genitourinary: Genitourinary: Reports no additional male genitourinary complaints Musculoskeletal: Musculoskeletal: Reports no additional musculoskeletal complaints Neurologic: Reports system reviewed and no additional complaints, except as documented Psychiatric: Psychiatric: Reports no additional psychiatric complaints [facility] Past Medical History Medical History Amputation finger left first digit Elevated bilirubin Epigastric pain Gallbladder sludge Left wrist fracture Nausea Normal endoscopy SBO (small bowel obstruction) Seborrheic keratoses Toe fracture, left big toe Surgical History Surgical History H/O skin graft left leg to index finger Family History Family History Father Malignant neoplasm of prostate Mother Lung cancer Stomach cancer Sibling History of female genital cancer Social History Social History Social History: The patient is and lives with his in [place], [place]. 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 His Rajni is a durable power workers compensation attorney for healthcare. Patient desires to be a full code. He smoked 3 packs of cigarettes a day for 3 years and quit 1977. He denies drinking any alcohol. No drug use. Smoking packs per day: 1.5 Smoking cigarettes per day: 30.0 Years smoked: 6 Smoking pack-years: 9.00 Smoking status: Former smoker Tobacco type: cigarettes Second hand tobacco smoke exposure: No Additional smoking assessment comments: Quite 40 years ago Alcohol intake: never Substance use: never Lack of Transportation: No Lack of Food: Never True Current Housing: I Have Housing Concerned About Future Housing: No Difficulty Paying Gas/Electric Bills: No Difficulty Paying for Meds: No Currently Unemployed: No Education: High School Diplom
[2022-04-03] MEDS: SODIUM CHLORIDE 0.9% IV 1,000 ML 250 ML IV CONT ×3 (12:27→20:21)
[2022-04-03 16:00] VITALS: BP 119/65; PULSE 52; RESP 14; TEMP 36.4; O2SAT 97
[2022-04-03 19:54] VITALS: PULSE 52; RESP 14; O2SAT 97
[2022-04-04] VITALS: BP 119/67; PULSE 57; RESP 17; TEMP 36.7; O2SAT 98
[2022-04-04] MEDS: SODIUM CHLORIDE 0.9% IV 1,000 ML 250 ML IV CONT ×3 (00:24→08:37)
[2022-04-04 05:27] LABS: Basophils Absolute Auto 0.01 K/mm3 (0.00-0.10); Basophils Percent Auto 0.3 % (0.0-1.0); Eosinophils Absolute Auto 0.12 K/mm3 (0.02-0.50); Eosinophils Percent Auto 3.5 % (1.0-6.0); Hematocrit 33.7 % (37.0-46.0); Hemoglobin 11.8 g/dL (12.4-15.3); Immature Granulocyte Absolute 0.01 K/mm3 (0.00-0.00); Immature Granulocyte Percent A 0.3 % (0.0-0.0); Lymphocytes Absolute Auto 0.83 K/mm3 (1.10-4.50); Lymphocytes Percent Auto 23.9 % (18.0-42.0); Mean Corpuscular Hemoglobin 31.8 pg (27.0-31.0); Mean Corpuscular Volume 90.8 fL (78.0-102.0); Mean Platelet Volume 9.8 fl (8.7-11.0); Monocytes Absolute Auto 0.16 K/mm3 (0.10-0.90); Monocytes Percent Auto 4.6 % (2.0-11.0); Neutrophils Absolute Auto 2.3 K/mm3 (1.7-7.2); Neutrophils Percent Auto 67.4 % (50.0-70.0); Platelet Count Result 158 K/mm3 (150-420); Red Blood Count 3.71 M/mm3 (4.70-6.10); Red Cell Distribution Width 12.4 % (11.6-14.4); White Blood Count 3.5 K/mm3 (4.8-10.8)
[2022-04-04 05:43] LABS: Alanine Aminotransferase 17 U/L (16-63); Albumin Level 3.2 g/dL (3.4-5.0); Alkaline Phosphatase 48 U/L (46-116); Amylase 264 U/L (25-115); Anion Gap 10 mmol/L (8-16); Aspartate Amino Transferase 15 U/L (15-37); Bilirubin,Total 2.1 mg/dL (0.00-1.00); Blood Urea Nitrogen 16 mg/dL (7-18); Calcium 7.9 mg/dL (8.5-10.1); Carbon Dioxide 25 mmol/L (21-32); Chloride 108 mmol/L (98-108); Estimated CRCL calculation 73 ml/min; Estimated Glomerular Filt Rate > 60; Glucose 68 mg/dL (70-99); Lipase 145 U/L (16-77); Osmolality Calculated 295 mOsm/kg (285-295); Potassium 3.8 mmol/L (3.5-5.1); Sodium 143 mmol/L (136-145); Total Protein 5.4 g/dL (6.4-8.2)
[2022-04-04 08:00] VITALS: BP 117/65; PULSE 63; RESP 16; TEMP 36.4; O2SAT 98
[2022-04-04] MEDS: TAMSULOSIN HCL 0.4 MG CAPSULE BY MOUTH (08:39)
[2022-04-04] MEDS: ENOXAPARIN 40 MG/0.4 ML SYRINGE SUB-Q (08:39)
--- NOTE | 2022-04-04 11:39 | PM.DS ---
DS: Admitting Diagnosis Discharge Date 04/04/2022 Admitting Diagnosis acute pancreatitis DS: Discharge Diagnosis Discharge Diagnosis (1) Pancreatitis: Code(s): K85.90 - Acute pancreatitis without necrosis or infection, unspecified Status: Acute Assessment and Plan: Resolved imaging indicated a pancreatitis amylase >650,>650>264 lipase >1500>[id number] (2) Abdominal pain: Code(s): R10.9 - Unspecified abdominal pain Status: Acute Assessment and Plan: secondary to pancreatitis treat underlying cause (3) Abnormal urine: Code(s): R82.90 - Unspecified abnormal findings in urine Status: Acute Assessment and Plan: patient UA positive for leukocytes and nitrates urine culture pending patient will discharge with Bactrim in 7 days DS: Summary Hospital Course Reason for hospitalization: abdominal pain Hospital Course: PATIENT IS A 72-YEAR-OLD MALE THAT PRESENTED TO THE EMERGENCY DEPARTMENT ON 04/02/2022 WITH COMPLAINTS OF UPPER ABDOMINAL PAIN LIKELY SECONDARY TO HIS KNOWN RECURRENT ACUTE PANCREATITIS THAT STARTED APPROXIMATELY 1 YEAR AGO PER PATIENT. STATES HE HAS HAD 7 EPISODES OF PANCREATITIS SINCE THAT TIME. PATIENT STATES HIS SYMPTOMS STARTED APPROXIMATELY 30 MINUTES AFTER EATING DINNER SALAD WITH CUCUMBERS AND TOMATOES AND SALMON PATTIES. STATES HE HAS BEEN FOLLOWING A STRICT LOW FAT DIET TO HELP WITH SYMPTOMS. PT STATES HE HAS A GI SPECIALIST THAT HAS BEEN FOLLOWING HIM FOR THIS COMPLAINT.? HAS HAD AN EGD, ERCP, CHOLECYSTECTOMY, AND A STENT IN THE COMMON BILE DUCT IN THE PAST.? STATES HE SAW DR. BELLA NAVA) AT [facility] LAST WEEK AND WAS GIVEN A TRIAL OF PANCRELIPASE TO START.? DENIES ANY C/O NAUSEA OR VOMITING WITH THIS EPISODE, JUST UPPER ABDOMINAL PAIN. DENIES ANY ALCOHOL OR STREET DRUG USE. patient condition has improved this day he will discharge home. Patient will follow with his primary care physician / GI doctor. The patient denies SOB, CP, palpitation, extremity numbness, lightheadedness, dizziness, constipation, diarrhea, chills, or fever. Time Spent with Patient Time attestation: Total time spent providing and/or coordinating discharge services: Exam Narrative: GENERAL: This is a well-nourished, well-developed patient, in no apparent distress. HEAD: normocephalic, atraumatic. EYES: PERRL. Sclera clear/white. Vision is grossly intact. EARS: External ears normal, auditory canals clear and without drainage, TMs normal without perforation. Hearing grossly intact. NOSE: External nose normal with no obvious nasal discharge, nares without redness, no rhinorrhea. THROAT: Mucous membranes moist, posterior pharynx clear. NECK: Neck supple, non-tender without lymphadenopathy, masses or thyromegaly. CARDIOVASCULAR: Regular rate and rhythm without murmurs, gallops, or rubs. RESPIRATORY: Clear to auscultation. Breath sounds equal bilaterally. No wheezes, rales, or rhonchi. GASTROINTESTINAL: Abdomen soft, non-tender, nondistended. Bowel sounds are active. No hepato-splenomegaly, or palpable masses. No guarding. SKIN: warm, intact with no suspicious lesions or rash, good texture and turgor. NEURO: awake, alert, and oriented to person, place and time. There were no obvious focal neurologic abnormalities. EXTREMITIES: Normal range of motion. No edema. No calf tenderness. DS: Data Data Completed and Pending Labs on day of discharge: Labs from last 24 hours 04/04/22 04/04/22 05:21 05:21 WBC 3.5 L RBC 3.71 L Hgb 11.8 L Hct 33.7 L MCV 90.8 MCH 31.8 H MCHC 35.0 RDW 12.4 Plt Count 158 MPV 9.8 Immature Gran % (Auto) 0.3 H Neut % (Auto) 67.4 Lymph % (Auto) 23.9 [place] % (Auto) 4.6 Eos % (Auto) 3.5 Baso % (Auto) 0.3 Lymph # (Auto) 0.83 L [place] # (Auto) 0.16 Eos # (Auto) 0.12 Baso # (Auto) 0.01 Abs Immat Gran (auto) 0.01 H Absolute Neuts (auto) 2.3 Absolute Nucleated RBC 0.00 Nucleated RBC
--- NOTE | 2022-04-04 12:11 | PC.NURSE ---
Patient discharged. Paperwork reviewed. Aware prescription for pain medication and ABT for UTI transmitted to [facility]. Patient refused wheelchair. Nurse walked with patient to private vehicle.
--- NOTE | 2022-04-05 10:00 | PC.NURSE ---
Pt states he received and understood his discharge instructions. Pt also states everything was excellent, you have 2 good nurses that took great care of me .
== END 2022-04-04 12:10 | disposition home or self-care (01) | DRG 440 ==
LOC: CHSED 22:26 → CHS2ND 22:52
PROVIDERS: Nurse Practitioner Family; Admitting Provider Internal Medicine; Emergency Provider Emergency Medicine; PCP Family Medicine; Visit Provider Internal Medicine
DX: Z20.822 Contact with and (suspected) exposure to COVID-19 (principal); K85.90 Acute pancreatitis without necrosis or infection, unspecified; R82.90 Unspecified abnormal findings in urine; Z87.891 Personal history of nicotine dependence; Z89.022 Acquired absence of left finger(s)
CPT/HCPCS: 36415; 74177; 80048; 80053; 81001; 82150; 83690; 85025; 87086; 87088; 87637; 96361; 96372; 96374; 96375; 96376; 99285; A9270; G0378; J1170; J1650; J2405; J7030; Q9967

== ENCOUNTER 2022-04-19 09:02 | Outpatient (CLI) | payer MEDICARE, SELFPAY ==
[2022-04-19 10:31] LABS: Prostate Specific Antigen 7.4 ng/mL (< OR = 4.0)
== END 2022-04-19 09:03 | disposition home or self-care (01) ==
LOC: CHSLAB 09:03
PROVIDERS: PCP Family Medicine
DX: R97.20 Elevated prostate specific antigen [PSA] (principal)
CPT/HCPCS: 36415; 84153

== ENCOUNTER 2022-05-27 19:28 | Inpatient (IN) | payer MEDICARE, SELFPAY ==
--- NOTE | ~2022-05-27 | CT_ITS ---
EXAMINATION: CT abdomen pelvis w con INDICATION: Abdominal pain TECHNIQUE: Computed tomographic images of the abdomen and pelvis were obtained after the administrati on of 100 cc of Omnipaque 350 intravenous contrast. The dose-length product (DLP) was 498.89 mGy-cm. Automated exposure control and iterative reconstruction technique were employed. COMPARISON: 04/02/2022 FINDINGS: There is a chronic nodule of the lingula. Mild atelectasis is noted in the visualized lung bases. The heart size is normal. There is chronic dilatation of the pancreatic duct. There is persist ent inflammatory change and fluid around the head and neck of the pancreas extending into the pancrea ticoduodenal groove with interval worsening since the comparison examination. The gallbladder is surg ically absent. Punctate calcifications in an otherwise normal spleen likely represent healed granulom atous disease. The liver and adrenal glands are normal. There is a 2.7 cm cyst of the left kidney. Th e right kidney is unremarkable. No pathologically enlarged abdominal or pelvic lymph nodes are identi fied. No free intraperitoneal gas or evidence of bowel obstruction. The appendix is normal. IMPRESSION: 1. Acute on chronic pancreatitis with interval worsening. Reviewed, dictated and finalized at location F.
[2022-05-27 19:33] VITALS: BP 158/102; PULSE 60; RESP 20; TEMP 36.6; O2SAT 100
--- NOTE | 2022-05-27 19:35 | ECG_ITS ---
Measurements Intervals [place] Rate: 51 P: 69 NC: 210 QRS: 35 QRSD: 111 T: 39 QT: 414 QTc: 385 Interpretive Statements SINUS BRADYCARDIA WITH FIRST DEGREE AV BLOCK INCOMPLETE RIGHT BUNDLE BRANCH BLOCK BORDERLINE ECG COMPARED TO ECG 01/04/2022 21:52:43 SINUS BRADYCARDIA NOW PRESENT FIRST DEGREE AV BLOCK NOW PRESENT Electronically Signed On 05-27-2022 22:40:21 CDT by Shayan Ramirez D.O.
[2022-05-27] MEDS: ONDANSETRON INJ 4 MG/2 ML VIAL IV PUSH (19:46)
[2022-05-27] MEDS: MORPHINE SULFATE (*CRX) 4 MG/ML INJ IV PUSH ×2 (19:47→22:37)
[2022-05-27] MEDS: SODIUM CHLORIDE 0.9% IV 1,000 ML 999 ML IV CONT (19:47)
[2022-05-27 19:48] LABS: Basophils Absolute Auto 0.01 K/mm3 (0.00-0.10); Basophils Percent Auto 0.2 % (0.0-1.0); Eosinophils Absolute Auto 0.08 K/mm3 (0.02-0.50); Eosinophils Percent Auto 1.5 % (1.0-6.0); Hematocrit 34.5 % (37.0-46.0); Hemoglobin 12.5 g/dL (12.4-15.3); Immature Granulocyte Absolute 0.01 K/mm3 (0.00-0.00); Immature Granulocyte Percent A 0.2 % (0.0-0.0); Lymphocytes Absolute Auto 1.54 K/mm3 (1.10-4.50); Lymphocytes Percent Auto 28.4 % (18.0-42.0); Mean Corpuscular HGB Conc 36.2 g/dL (32.0-36.0); Mean Corpuscular Hemoglobin 32.1 pg (27.0-31.0); Mean Corpuscular Volume 88.5 fL (78.0-102.0); Mean Platelet Volume 9.8 fl (8.7-11.0); Monocytes Absolute Auto 0.41 K/mm3 (0.10-0.90); Monocytes Percent Auto 7.6 % (2.0-11.0); Neutrophils Absolute Auto 3.4 K/mm3 (1.7-7.2); Neutrophils Percent Auto 62.1 % (50.0-70.0); Platelet Count Result 177 K/mm3 (150-420); Red Cell Distribution Width 12.6 % (11.6-14.4); White Blood Count 5.4 K/mm3 (4.8-10.8)
[2022-05-27 20:02] LABS: Partial Thromboplastin Time 23.8 SEC (23.90-30.70); Prothrombin Time 10.9 Seconds (9.50-12.10)
[2022-05-27 20:03] VITALS: BP 129/70; PULSE 60; RESP 20; O2SAT 98
[2022-05-27 20:07] LABS: Lactic Acid Reflex 0.8 mmol/L (0.4-2.0)
[2022-05-27 20:11] LABS: Alanine Aminotransferase 31 U/L (16-63); Albumin Level 4.1 g/dL (3.4-5.0); Alkaline Phosphatase 59 U/L (46-116); Anion Gap 9 mmol/L (8-16); Aspartate Amino Transferase 21 U/L (15-37); Bilirubin,Total 1.2 mg/dL (0.00-1.00); Blood Urea Nitrogen 21 mg/dL (7-18); Carbon Dioxide 30 mmol/L (21-32); Chloride 106 mmol/L (98-108); Estimated CRCL calculation 64 ml/min; Estimated Glomerular Filt Rate > 60; Glucose 125 mg/dL (70-99); Osmolality Calculated 304 mOsm/kg (285-295); Potassium 3.5 mmol/L (3.5-5.1); Sodium 145 mmol/L (136-145); Total Protein 7.1 g/dL (6.4-8.2); Troponin I 9.1 ng/L (0.00-60.4)
[2022-05-27 20:15] LABS: Lipase > 1500 U/L (16-77)
[2022-05-27 20:22] LABS: Appearance Urine Clear (Clear); Bilirubin Urine Negative (Negative); Blood Urine Negative (Negative); Color Urine Light Yellow (Yellow); Glucose Urine UA Negative (Negative); Ketones Urine Negative (Negative); Leukocyte Esterase Ur 1+ LEU/UL (Negative); Nitrate Urine Negative (Negative); Protein Urine Negative (Negative); Specific Grav Ur 1.015 (1.010-1.020); Urobilinogen Urine 0.2 mg/dL (0.2-1.0); pH Urine 5.5 (5.0-8.0)
[2022-05-27 20:28] LABS: Add Urine Microscopic? YES; Bacteria Urine Trace /hpf; RBC Urine 0-2 /hpf (0-2); Squamous Epithelial Cell Urine None seen /hpf (Few)
--- NOTE | 2022-05-27 20:28 | ED.ABDPAIN ---
HPI - Abdominal Pain General Chief Complaint: Abdominal Pain Stated Complaint: Abdominal Pain Source: patient Mode of arrival: ambulatory Limitations: no limitations History of Present Illness HPI narrative: This is a 72-year-old gentleman with a history of chronic pancreatitis earlier this evening had a bite to eat, had chicken noodle soup and started developing severe abdominal pain localizing to his left upper quadrant similar to pancreatitis that he has had before. Patient denies having any shortness of breath no chest pain no fever chills has some nausea with no vomiting no diarrhea or constipation. MD elicited complaint: abdominal pain Pertinent past history: other Onset (ago): hour(s) Pain Consistency: constant Location: [facility] Severity: severe Pain scale (0-10): 10 Quality: aching Radiation: none Migration to: no migration Exacerbating factors: eating Relieving factors: nothing Related Data Home Medications Medication Instructions Recorded Confirmed dicyclomine 10 mg capsule 10 mg PO PRN PRN Abdominal 04/02/22 04/03/22 Discomfort fxblee-cwuubslf-hamisho 1 cap PO QACBREAK 04/02/22 04/03/22 36,000-114,000-180,000 unit capsule,delay rel (Creon) solifenacin 10 mg tablet 10 mg PO HS 05/27/22 05/27/22 Allergies Allergy/AdvReac Type Severity Reaction Status Date / Time No Known Allergies Allergy Verified 02/02/22 13:08 Review of Systems Review of Systems: All systems reviewed & are unremarkable except as noted in HPI and below PMFSH Past Medical History Medical History Amputation finger left first digit Elevated bilirubin Epigastric pain Gallbladder sludge Left wrist fracture Nausea Normal endoscopy SBO (small bowel obstruction) Seborrheic keratoses Toe fracture, left big toe Surgical History Surgical History H/O skin graft left leg to index finger Family History Family History Father Malignant neoplasm of prostate Mother Lung cancer Stomach cancer Sibling History of female genital cancer Social History Social History Social History: The patient is and lives with his in [place], [place]. 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 His Rajni is a durable power litigation attorney associate for healthcare. Patient desires to be a full code. He smoked 3 packs of cigarettes a day for 3 years and quit 1977. He denies drinking any alcohol. No drug use. Smoking packs per day: 1.5 Smoking cigarettes per day: 30.0 Years smoked: 6 Smoking pack-years: 9.00 Smoking status: Former smoker Tobacco type: cigarettes Second hand tobacco smoke exposure: No Additional smoking assessment comments: Quite 40 years ago Alcohol intake: never Substance use: never Lack of Transportation: No Lack of Food: Never True Current Housing: I Have Housing Concerned About Future Housing: No Difficulty Paying Gas/Electric Bills: No Difficulty Paying for Meds: No Currently Unemployed: No Education: High School Diploma/GED Difficulty w/ Childcare or Family Care: No Living arrangements: with family Occupation/Education: retired Gender identity (if verbalized by the patient): Male Spiritual care concerns: No Agree to blood products: Yes Exam Const: General: healthy appearing and no acute distress Nutritional Appearance: well nourished Orientation/consciousness: patient oriented x3 Limitations: no limitations HENMT: Head: normal to inspection Eyes: Conjunctivae: conjunctivae normal Pupils: Equal, round and reactive pupils present Neck: Neck: normal visual inspection Chest: Chest palpation & inspection: normal inspection of the c
--- NOTE | 2022-05-27 21:30 | PC.NURSE ---
Call placed to Shu RN, pt to go to Rm 226 for obs admit.
[2022-05-27 22:00] VITALS: BP 133/76; PULSE 60; RESP 20; O2SAT 98
[2022-05-27] MEDS: SODIUM CHLORIDE 0.9% IV 1,000 ML 125 ML IV CONT (22:05)
--- NOTE | 2022-05-27 22:10 | ADMGEN ---
This patient, Jeramy Blood, was admitted to 2nd Floor Room 226-1. Patient/family oriented to hospital policies and general routines including ID bracelet, bed and alarms, visiting hours, pain management, procedures, bathroom and other care routines, personal items, smoking policy, room service/diet, and visiting hours. Information on how to activate the Rapid Response Team has been discussed. Patient/Family are encouraged to report perceived risks to care and to ask questions if they do not understand what they are told or what they should do.
[2022-05-27 22:18] VITALS: BP 134/75; PULSE 59; RESP 17; TEMP 36.2; O2SAT 100
[2022-05-27 22:19] VITALS: BMI 24.9
[2022-05-27 22:44] VITALS: PULSE 59; RESP 17; O2SAT 100
[2022-05-28 05:32] LABS: Eosinophils Absolute Auto 0.07 K/mm3 (0.02-0.50); Eosinophils Percent Auto 0.9 % (1.0-6.0); Hematocrit 34.8 % (37.0-46.0); Hemoglobin 12.2 g/dL (12.4-15.3); Immature Granulocyte Absolute 0.02 K/mm3 (0.00-0.00); Immature Granulocyte Percent A 0.3 % (0.0-0.0); Lymphocytes Absolute Auto 0.86 K/mm3 (1.10-4.50); Lymphocytes Percent Auto 11.3 % (18.0-42.0); Mean Corpuscular HGB Conc 35.1 g/dL (32.0-36.0); Mean Corpuscular Hemoglobin 31.6 pg (27.0-31.0); Mean Corpuscular Volume 90.2 fL (78.0-102.0); Mean Platelet Volume 10.1 fl (8.7-11.0); Monocytes Percent Auto 5.3 % (2.0-11.0); Neutrophils Absolute Auto 6.3 K/mm3 (1.7-7.2); Neutrophils Percent Auto 82.2 % (50.0-70.0); Platelet Count Result 168 K/mm3 (150-420); Red Blood Count 3.86 M/mm3 (4.70-6.10); Red Cell Distribution Width 12.7 % (11.6-14.4); White Blood Count 7.6 K/mm3 (4.8-10.8)
[2022-05-28] MEDS: SODIUM CHLORIDE 0.9% IV 1,000 ML 125 ML IV CONT (05:51)
[2022-05-28] MEDS: MORPHINE SULFATE (*CRX) 4 MG/ML INJ IV PUSH ×2 (05:53→12:10)
[2022-05-28 06:00] LABS: Alanine Aminotransferase 25 U/L (16-63); Albumin Level 3.6 g/dL (3.4-5.0); Alkaline Phosphatase 55 U/L (46-116); Anion Gap 8 mmol/L (8-16); Aspartate Amino Transferase 28 U/L (15-37); Bilirubin,Total 1.2 mg/dL (0.00-1.00); Blood Urea Nitrogen 16 mg/dL (7-18); Calcium 8.5 mg/dL (8.5-10.1); Carbon Dioxide 29 mmol/L (21-32); Chloride 110 mmol/L (98-108); Estimated CRCL calculation 68 ml/min; Estimated Glomerular Filt Rate > 60; Glucose 147 mg/dL (70-99); Magnesium 1.8 mg/dL (1.8-2.4); Osmolality Calculated 308 mOsm/kg (285-295); Potassium 3.7 mmol/L (3.5-5.1); Sodium 147 mmol/L (136-145); Total Protein 6.3 g/dL (6.4-8.2)
[2022-05-28 06:18] LABS: Lipase 2496 U/L (16-77)
--- NOTE | 2022-05-28 07:58 | PM.IMHP ---
H&P: HPI History of Present Illness Date/Time: 05/28/22 07:58 Chief Complaint: Severe abdominal pain Narrative: patient is a 72-year-old male with a past medical history of pancreatitis, cholecystectomy, small-bowel obstruction who presented to the ED with complaints of severe abdominal pain. Patient stated that he had just got back from [place] however for last 2 days he has had powdered sugar pancakes with scrambled eggs and oatmeal all for breakfast, grilled chicken sandwich for lunch and last night when he got home he had a bowl of Aura chicken noodle soup. He stated that about 10 minutes after his soup around 7:00 p.m. he developed severe abdominal pain. He also stated that he got very nauseated however he did not vomit. He thinks that is his diet as this normally happens after certain foods. He did state that he had a cholecystectomy and the gallbladder was in pretty bad shape and crusted in fat and full of sludge. He does see a Dr. Bird and Dr. Monson at [facility] for his pancreas. They had recently started him on Creon which he stated they gave him a stable pack and he took his last dose 2 days ago. He did state that he felt like it was working. He denies any chest pain, shortness a breath, weakness, fatigue, sweats, fevers, chills, headache, lightheadedness, dizziness. He stated that his last bowel movement was yesterday around noon. Upon arrival to the ED lipase was greater than 1500 and is trending up currently at 2496. Abdominal CT does show acute on chronic pancreatitis with interval worsening. Patient denies any alcohol use or abuse any does not smoke. Currently patient states that his abdominal pain is tender and he rates it about an 8. He also stated that his pain is mostly right between his ribs. IV fluids have been given in the ED and have been continued. Patient is being admitted to the hospitalist service under observation Review of Systems Review of Systems: All systems reviewed & are unremarkable except as noted in HPI and below PMFSH Past Medical History Medical History Amputation finger left first digit Candidal intertrigo Elevated PSA Gallbladder sludge Left wrist fracture Normal endoscopy Pancreatitis Pulmonary nodule SBO (small bowel obstruction) Seborrheic keratoses Toe fracture, left big toe Surgical History Surgical History H/O skin graft left leg to index finger History of cholecystectomy Family History Family History Father Malignant neoplasm of prostate Acute myocardial infarction Heart disease Mother Lung cancer Stomach cancer Sibling History of female genital cancer Social History Social History (Updated 05/28/22 @ 08:10 by TYRELL Delgadillo) Social History: The patient is and lives with his in [place], [place], his Rajni will be his surrogate. 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 His Rajni is a durable power traffic law attorney for healthcare. Patient desires to be a full code. Smoking packs per day: 1.5 Smoking cigarettes per day: 30.0 Years smoked: 6 Smoking pack-years: 9.00 Smoking status: Former smoker Tobacco type: cigarettes Second hand tobacco smoke exposure: No Smoking end date: 06/12/77 Additional smoking assessment comments: Quite 40 years ago Alcohol intake: never Substance use: never Lack of Transportation: No Lack of Food: Never True Current Housing: I Have Housing Concerned About Future Housing: No Difficulty Paying Gas/Electric Bills: No Difficulty Paying for Meds: No Currently Unemployed: No Education: High School Diploma/GED Difficulty w/ Childcare or Family Care: No Living arrangements: with family
[2022-05-28 08:00] VITALS: BP 117/68; PULSE 51; RESP 14; TEMP 36.4; O2SAT 98
[2022-05-28] MEDS: DEXTROSE 5%/0.45% SOD CHL 1,000 ML 200 ML IV CONT (13:50)
[2022-05-28 16:35] VITALS: BP 113/68; PULSE 63; RESP 16; TEMP 36.7; O2SAT 99
[2022-05-28] MEDS: DEXTROSE 5%/0.45% SOD CHL 1,000 ML 100 ML IV CONT ×2 (18:47→20:56)
[2022-05-28 23:53] VITALS: BP 116/65; PULSE 64; RESP 16; TEMP 37; O2SAT 96
[2022-05-29 05:13] LABS: Eosinophils Absolute Auto 0.13 K/mm3 (0.02-0.50); Hematocrit 32.1 % (37.0-46.0); Hemoglobin 11.5 g/dL (12.4-15.3); Immature Granulocyte Absolute 0.01 K/mm3 (0.00-0.00); Immature Granulocyte Percent A 0.2 % (0.0-0.0); Lymphocytes Absolute Auto 1.06 K/mm3 (1.10-4.50); Lymphocytes Percent Auto 16.2 % (18.0-42.0); Mean Corpuscular HGB Conc 35.8 g/dL (32.0-36.0); Mean Corpuscular Hemoglobin 32.2 pg (27.0-31.0); Mean Corpuscular Volume 89.9 fL (78.0-102.0); Monocytes Absolute Auto 0.51 K/mm3 (0.10-0.90); Monocytes Percent Auto 7.8 % (2.0-11.0); Neutrophils Absolute Auto 4.9 K/mm3 (1.7-7.2); Neutrophils Percent Auto 73.8 % (50.0-70.0); Platelet Count Result 144 K/mm3 (150-420); Red Blood Count 3.57 M/mm3 (4.70-6.10); Red Cell Distribution Width 12.5 % (11.6-14.4); White Blood Count 6.6 K/mm3 (4.8-10.8)
[2022-05-29 05:35] LABS: Alanine Aminotransferase 19 U/L (16-63); Albumin Level 3.3 g/dL (3.4-5.0); Alkaline Phosphatase 54 U/L (46-116); Anion Gap 4 mmol/L (8-16); Aspartate Amino Transferase 15 U/L (15-37); Bilirubin,Total 2.1 mg/dL (0.00-1.00); Blood Urea Nitrogen 9 mg/dL (7-18); Calcium 8.4 mg/dL (8.5-10.1); Carbon Dioxide 33 mmol/L (21-32); Chloride 108 mmol/L (98-108); Estimated CRCL calculation 78 ml/min; Estimated Glomerular Filt Rate > 60; Glucose 102 mg/dL (70-99); Magnesium 1.6 mg/dL (1.8-2.4); Osmolality Calculated 298 mOsm/kg (285-295); Potassium 3.7 mmol/L (3.5-5.1); Sodium 145 mmol/L (136-145); Total Protein 5.8 g/dL (6.4-8.2)
[2022-05-29 05:36] LABS: Lipase 995 U/L (16-77)
[2022-05-29 08:00] VITALS: BP 122/65; PULSE 55; RESP 14; TEMP 36.4; O2SAT 96
--- NOTE | 2022-05-29 12:39 | PM.IMPN ---
Progress Note: A&P Assessment and Plan (1) Acute on chronic pancreatitis: Code(s): K85.90 - Acute pancreatitis without necrosis or infection, unspecified; K86.1 - Other chronic pancreatitis Status: Acute Assessment and Plan: Present with abdominal pain Long standing history of pancreatitis Abd Ct did confirm acute on chronic pancreatitis Morphine for pain control for now IV D5 1/2 NS at 100 ml/hr Lipase elevated at admission, trending downward and today 995 Continue to trend labs-Elevated total bilirubin 2.1-continue to monitor Diet full liquid Restart creon when able-do not have at this facility (2) BPH associated with nocturia: Code(s): N40.1 - Benign prostatic hyperplasia with lower urinary tract symptoms; R35.1 - Nocturia Status: Acute Assessment and Plan: PSA elevated in Feb Continue tamsulosin Trend urine output Bladder scan if indicated (3) Hypernatremia: Code(s): E87.0 - Hyperosmolality and hypernatremia Status: Acute Assessment and Plan: Na 145 Continue to trend labs Adjust therapy as indicated Subjective Date/time seen: 05/29/22 0930 Review of Systems Review of Systems: All systems reviewed & are unremarkable except as noted in HPI and below Gastrointestinal: Gastrointestinal: Reports abdominal pain (Continues to have upper abdominal discomfort) Exam Narrative: Patient lying in low Fowlers position in bed watching TV. Pleasant affect noted. States he is feeling much better than when he came in. States he ate his full liquid breakfast and this did not cause any abdominal discomfort or nausea. States he isn't quite back to his baseline though. Const: General: comfortable and no acute distress HENMT: Face/Nose/Sinus: Normal nares present Eyes: General: appearance normal, both eyes and all related structures Neck: Neck: supple and no JVD Resp: Effort & Inspection: normal respiratory effort Auscultation: clear to auscultation bilaterally Other: patient appears in no acute respiratory distress. Able to speak complete sentences without difficulty. No use of accessory muscles appreciated. Lung sounds are clear and equal bilaterally. Cardio: Rate: regular rate Rhythm: regular rhythm Other: normal S1-S2 without any murmur, gallop, rub noted GI: Other: abdomen soft, nondistended with tenderness to the upper half the abdomen on palpation. No masses, organomegaly, rebound tenderness noted Skin: General skin exam: normal color and no rashes or lesions noted Neuro: Speech: normal speech Motor exam (neuro): Normal motor muscle tone present throughout Sensory Exam: normal sensation Extrem: General: normal to inspection Other: bilateral pedal and posterior tibial pulses palpated and equal without any edema noted Psych: Mental Status: mental status grossly normal Affect: normal affect Objective Data Vital Signs Vital Signs: Vital Signs - 24 hr 05/28/22 16:35 05/28/22 23:53 05/29/22 08:00 Temperature 98.1 F 98.6 F 97.6 F Pulse Rate 63 64 55 L Respiratory Rate 16 16 14 Blood Pressure 113/68 116/65 122/65 Pulse Oximetry 99 96 96 Oxygen Delivery Room Air Room Air Room Air Intake/Output Intake/Output: Intake & Output 05/26/22 05/27/22 05/28/22 05/29/22 23:59 23:59 23:59 23:59 Intake Total 1000 3903.750 1708.333 Output Total 2350 3000 Balance 1000 1553.750 -1291.667 Meds/Results Medications: Active Medications Generic Name Dose Route Start Last Admin Trade Name Freq PRN Reason Stop Dose Admin Dextrose/Sodium Chloride 1,000 mls @ 100 mls/hr 05/28/22 19:15 05/29/22 03:52 Dextrose 5% Sodium Chloride 0.45% IV CONT 100 mls/hr .Q10H DOMINGUEZ Infusion Morphine Sulfate 4 mg 05/27/22 21:22 05/28/22 12:10 Morphine Sulfate (*Crx) 4 Mg/Ml Inj IV PUSH 4 mg Q4H PRN Administration Pain Rated 7-10 Ondansetron HCl 4 mg 05/27
[2022-05-29] MEDS: DEXTROSE 5%/0.45% SOD CHL 1,000 ML 100 ML IV CONT ×2 (12:53→22:23)
[2022-05-29] MEDS: ENOXAPARIN 40 MG/0.4 ML SYRINGE SUB-Q (14:15)
[2022-05-29 16:00] VITALS: BP 119/52; PULSE 60; RESP 14; TEMP 36.6; O2SAT 98
[2022-05-29] MEDS: MORPHINE SULFATE (*CRX) 4 MG/ML INJ IV PUSH (22:30)
[2022-05-29 23:41] VITALS: BP 113/53; PULSE 56; RESP 16; TEMP 36.5; O2SAT 96
[2022-05-30 08:00] VITALS: BP 130/70; PULSE 60; RESP 16; TEMP 36.6; O2SAT 98
[2022-05-30] MEDS: DEXTROSE 5%/0.45% SOD CHL 1,000 ML 100 ML IV CONT (08:14)
[2022-05-30] MEDS: ENOXAPARIN 40 MG/0.4 ML SYRINGE SUB-Q (08:19)
[2022-05-30 11:04] LABS: Hematocrit 34.1 % (37.0-46.0); Hemoglobin 11.9 g/dL (12.4-15.3); Mean Corpuscular HGB Conc 34.9 g/dL (32.0-36.0); Mean Corpuscular Hemoglobin 31.5 pg (27.0-31.0); Mean Corpuscular Volume 90.2 fL (78.0-102.0); Mean Platelet Volume 10.1 fl (8.7-11.0); Platelet Count Result 157 K/mm3 (150-420); Red Blood Count 3.78 M/mm3 (4.70-6.10); Red Cell Distribution Width 12.5 % (11.6-14.4); White Blood Count 4.4 K/mm3 (4.8-10.8)
[2022-05-30 11:15] LABS: Alanine Aminotransferase 19 U/L (16-63); Albumin Level 3.4 g/dL (3.4-5.0); Alkaline Phosphatase 54 U/L (46-116); Anion Gap -1 mmol/L (8-16); Aspartate Amino Transferase 17 U/L (15-37); Bilirubin,Total 1.5 mg/dL (0.00-1.00); Blood Urea Nitrogen 8 mg/dL (7-18); Calcium 8.9 mg/dL (8.5-10.1); Carbon Dioxide 34 mmol/L (21-32); Chloride 103 mmol/L (98-108); Estimated CRCL calculation 83 ml/min; Estimated Glomerular Filt Rate > 60; Glucose 110 mg/dL (70-99); Osmolality Calculated 281 mOsm/kg (285-295); Potassium 3.7 mmol/L (3.5-5.1); Sodium 136 mmol/L (136-145); Total Protein 6.4 g/dL (6.4-8.2)
[2022-05-30 11:16] LABS: Lipase 923 U/L (16-77)
--- NOTE | 2022-05-30 13:11 | PM.IMPN ---
Progress Note: A&P Assessment and Plan (1) Acute on chronic pancreatitis: Code(s): K85.90 - Acute pancreatitis without necrosis or infection, unspecified; K86.1 - Other chronic pancreatitis Status: Acute Assessment and Plan: Present with abdominal pain Long standing history of pancreatitis Abd Ct did confirm acute on chronic pancreatitis Morphine for pain control for now Lipase elevated at admission, trending downward [id number] Continue to trend labs-Elevated total bilirubin 2.1-continue to monitor Started regular diet Restart creon when able-do not have at this facility (2) BPH associated with nocturia: Code(s): N40.1 - Benign prostatic hyperplasia with lower urinary tract symptoms; R35.1 - Nocturia Status: Acute Assessment and Plan: PSA elevated in Fe Continue tamsulosin Trend urine output Bladder scan if indicated (3) Hypernatremia: Code(s): E87.0 - Hyperosmolality and hypernatremia Status: Acute Assessment and Plan: resolved Continue to trend labs Adjust therapy as indicated Subjective Date/time seen: 05/30/22 13:11 Interval history: patient notes that he is still unable to tolerate solid foods and he still experiencing abdominal pain. Patient will stay for an additional day to trend his lipase and make sure he can tolerate his meals. The patient denies SOB, CP, palpitation, extremity numbness, lightheadedness, dizziness, constipation, diarrhea, chills, or fever. Review of Systems Review of Systems: All systems reviewed & are unremarkable except as noted in HPI and below Exam Narrative: Patient lying in low Fowlers position in bed watching TV. Pleasant affect noted. States he is feeling much better than when he came in. States he ate his full liquid breakfast and this did not cause any abdominal discomfort or nausea. States he isn't quite back to his baseline though. Const: General: healthy appearing, comfortable, no acute distress and well nourished Nutritional Appearance: well nourished Orientation/consciousness: patient oriented x3 Limitations: no limitations HENMT: Head: normal to inspection Face/Nose/Sinus: Normal nares present Eyes: General: appearance normal, both eyes and all related structures Conjunctivae: conjunctivae normal Pupils: Equal, round and reactive pupils present Neck: Neck: normal visual inspection, supple and no JVD Chest: Chest palpation & inspection: normal inspection of the chest Resp: Effort & Inspection: normal respiratory effort Auscultation: clear to auscultation bilaterally Other: patient appears in no acute respiratory distress. Able to speak complete sentences without difficulty. No use of accessory muscles appreciated. Lung sounds are clear and equal bilaterally. Cardio: Rate: regular rate and bradycardic Rhythm: regular rhythm Other: normal S1-S2 without any murmur, gallop, rub noted GI: Other: abdomen soft, nondistended with tenderness to the upper half the abdomen on palpation. No masses, organomegaly, rebound tenderness noted : General: Yes bladder normal to palpation and Yes no CVA tenderness Back/Spine/Pelvis: Back: no CVA tenderness Skin: General skin exam: normal color and no rashes or lesions noted Rashes: no rashes Wounds: no wounds Neuro: General: patient oriented x3 and moves all extremities Cranial nerves: Yes Equal, round and reactive pupils present Speech: normal speech Motor exam (neuro): Normal motor muscle tone present throughout Sensory Exam: normal sensation Extrem: General: normal to inspection Other: bilateral pedal and posterior tibial pulses palpated and equal without any edema noted Psych: Mental Status: mental status grossly normal Affect: normal affect Attitude: cooperative Objective Data Vital Signs Vital Signs: Vital Signs - 24 hr 05/29/22 16:00 05/29/22 23:41 05/30/22
[2022-05-30] MEDS: TAMSULOSIN HCL 0.4 MG CAPSULE PO (13:49)
--- NOTE | 2022-05-30 13:51 | PC.NURSE ---
Patient refused Creon. Only to be take with food. Meal completed before order received
[2022-05-30 16:00] VITALS: BP 125/75; PULSE 63; RESP 14; TEMP 36.6; O2SAT 98
[2022-05-30 20:00] VITALS: PULSE 63; RESP 14; O2SAT 98
[2022-05-30] MEDS: SOLIFENACIN 5 MG TABLET 10 MG PO (20:21)
[2022-05-30] MEDS: DICYCLOMINE HCL 10 MG CAPSULE PO (20:22)
[2022-05-31] VITALS: BP 118/58; PULSE 60; RESP 16; TEMP 36.3; O2SAT 97
[2022-05-31 05:39] LABS: Hematocrit 31.7 % (37.0-46.0); Hemoglobin 11.3 g/dL (12.4-15.3); Mean Corpuscular HGB Conc 35.6 g/dL (32.0-36.0); Mean Corpuscular Hemoglobin 31.4 pg (27.0-31.0); Mean Corpuscular Volume 88.1 fL (78.0-102.0); Mean Platelet Volume 10.3 fl (8.7-11.0); Platelet Count Result 172 K/mm3 (150-420); Red Cell Distribution Width 12.2 % (11.6-14.4); White Blood Count 3.9 K/mm3 (4.8-10.8)
[2022-05-31 05:58] LABS: Alanine Aminotransferase 21 U/L (16-63); Albumin Level 3.3 g/dL (3.4-5.0); Alkaline Phosphatase 52 U/L (46-116); Anion Gap 7 mmol/L (8-16); Aspartate Amino Transferase 15 U/L (15-37); Bilirubin,Total 1.5 mg/dL (0.00-1.00); Blood Urea Nitrogen 11 mg/dL (7-18); Calcium 8.9 mg/dL (8.5-10.1); Carbon Dioxide 30 mmol/L (21-32); Chloride 108 mmol/L (98-108); Estimated CRCL calculation 79 ml/min; Estimated Glomerular Filt Rate > 60; Glucose 102 mg/dL (70-99); Osmolality Calculated 299 mOsm/kg (285-295); Potassium 3.7 mmol/L (3.5-5.1); Sodium 145 mmol/L (136-145); Total Protein 6.1 g/dL (6.4-8.2)
[2022-05-31 06:15] LABS: Lipase 306 U/L (16-77)
--- NOTE | 2022-05-31 07:18 | PHAR ---
Meds from home identified
--- NOTE | 2022-05-31 07:19 | PHAR ---
Meds from home identified - Creon [employer]
[2022-05-31 08:00] VITALS: BP 113/58; PULSE 59; RESP 16; TEMP 36.4
[2022-05-31] MEDS: TAMSULOSIN HCL 0.4 MG CAPSULE PO (08:08)
[2022-05-31] MEDS: ENOXAPARIN 40 MG/0.4 ML SYRINGE SUB-Q (08:09)
--- NOTE | 2022-05-31 11:18 | PM.DS ---
DS: Admitting Diagnosis Discharge Date 05/31/2022 Admitting Diagnosis Acute on chronic pancreatitis DS: Discharge Diagnosis Discharge Diagnosis (1) Acute on chronic pancreatitis: Code(s): K85.90 - Acute pancreatitis without necrosis or infection, unspecified; K86.1 - Other chronic pancreatitis Status: Acute Assessment and Plan: Presented with acute upper abdominal pain which has since resolved. This morning abdomen is soft and nontender to palpation Long standing history of pancreatitis Abd Ct did confirm acute on chronic pancreatitis Lipase elevated at admission, trending downward and today 306 Diet-low fat, low fiber-tolerated well without any abdominal pain or nausea today. Continue the Creon (2) BPH associated with nocturia: Code(s): N40.1 - Benign prostatic hyperplasia with lower urinary tract symptoms; R35.1 - Nocturia Status: Acute Assessment and Plan: PSA elevated in Mar Continue tamsulosin Good urine output without evidence of urinary retention (3) Hypernatremia: Code(s): E87.0 - Hyperosmolality and hypernatremia Status: Acute Assessment and Plan: Na 145 Low sodium diet DS: Summary Hospital Course Reason for hospitalization: Acute on chronic pancreatitis Abdominal pain Hospital Course: Patient was admitted on 05/29/2022 with upper abdominal pain, acute on chronic pancreatitis. Pt was put on bowel rest and IVF were administered. Lipase went from over 1500 on admission to 306 this morning. Patient is able to tolerate 2 g sodium diet. Has had no nausea or abdominal pain today. States he feels he is back to his baseline and is requesting to go. 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 Status at Discharge Cognitive/behavioral status at discharge: Patient is alert and oriented x4 and is ambulatory around the hospital all morning. Functional status at discharge: independent ambulation Overall status at discharge: patient is back to baseline Time Spent with Patient Time attestation: Total time spent providing and/or coordinating discharge services: Less than 30 minutes Exam Narrative: Patient lying in low Fowlers position in bed watching TV. Pleasant affect noted. States he feels like he is back to his normal self and is ready to go home. States he ate his breakfast and this did not cause any abdominal discomfort or nausea. States he had a normal bowel movement earlier this morning. Const: General: comfortable and no acute distress HENMT: Face/Nose/Sinus: Normal nares present Eyes: General: appearance normal, both eyes and all related structures Neck: Neck: supple and no JVD Resp: Effort & Inspection: normal respiratory effort Auscultation: clear to auscultation bilaterally Other: patient appears in no acute respiratory distress. Able to speak complete sentences without difficulty. No use of accessory muscles appreciated. Lung sounds are clear and equal bilaterally. Cardio: Rate: regular rate Rhythm: regular rhythm Other: normal S1-S2 without any murmur, gallop, rub noted GI: Other: abdomen soft, nondistended, with no tenderness on palpation. No masses, organomegaly, rebound tenderness noted Skin: General skin exam: normal color and no rashes or lesions noted Neuro: Speech: normal speech Motor exam (neuro): Normal motor muscle tone present throughout Sensory Exam: normal sensation Extrem: General: normal to inspection Other: bilateral pedal and posterior tibial pulses palpated and equal without any edema noted Psych: Mental Status: mental status grossly normal Affect: normal affect Other: patient has a pleasant affect and seems in good spirits. DS: Data Data Completed and Pending Labs on day of discharge: Labs from last 24 hours 05/31/22 05/31/22 05/31/22 05:19 05:19 05:19 WBC 3.9 L R
--- NOTE | 2022-05-31 12:57 | PC.NURSE ---
Patient given discharge instructions including medication information, diet information and follow up appointment with Dr. Cheung. Home medication returned to patient. Accompanied to private vehicle. Patient stated he was also going to consult with his pancreatologist Dr. Guardado at [facility].
--- NOTE | 2022-06-01 16:04 | PC.NURSE ---
Discharge call back-- Patient stated his discharge instructions were explained to him and he understood them. Patient states he is doing fine.
== END 2022-05-31 12:55 | disposition home or self-care (01) | DRG 439 ==
LOC: CHSED 21:23 → CHS2ND 21:31
PROVIDERS: Nurse Practitioner; Admitting Provider Internal Medicine; Emergency Provider Emergency Medicine; PCP Family Medicine; Visit Provider Internal Medicine
DX: K85.90 Acute pancreatitis without necrosis or infection, unspecified (principal); E87.0 Hyperosmolality and hypernatremia; K86.1 Other chronic pancreatitis; N40.1 Benign prostatic hyperplasia with lower urinary tract symptoms; R35.1 Nocturia; Z89.022 Acquired absence of left finger(s)
CPT/HCPCS: 36415; 74177; 80053; 81001; 83605; 83690; 83735; 84484; 85025; 85027; 85610; 85730; 87086; 93005; 96361; 96374; 96375; 96376; 99285; A9270; G0378; J1650; J2270; J2405; J7030; Q9967